=== PATIENT | female | born 1950 | race Hispanic/Latino ===

== ENCOUNTER 2020-04-22 14:26 | Observation (INO) | payer OTHER ==
[2020-04-22] MEDS ORDERED: HYDROCODONE/CHLORPHEN 5 ML/OSYR ONE (15:36)
[2020-04-22 16:12] LABS: Urine Blood TRACE (NEG); Urine Glucose NEGATIVE (NEG); Urine Protein 2+ (NEG); Urine Specific Gravity 1.025 (1.005-1.030); Urine pH 6.5 (5.0-7.0)
--- NOTE | 2020-04-22 16:18 | RAD REPORT ---
EXAM DESCRIPTION: RAD - Chest Single View - 04/22/2020 4:07 pm CLINICAL HISTORY: COUGH Chest pain. COMPARISON: Chest Single View dated 04/20/2020; FLUORO-GUIDE FOR BRONCH UPT1HR dated 04/20/2020Chest P a And Lat (2 Views) dated 12/13/2018; Chest Pa And Lat (2 Views) dated 02/14/2016; CHEST SINGLE VIEW da marshal 04/30/2008 FINDINGS: Portable technique limits examination quality. Small focal lung opacity is present in the right upper lobe laterally suggesting developing pneumonia . This appears superimposed on mild interstitial pulmonary opacities. The heart is normal in size. No displaced fractures. IMPRESSION: Interstitial pneumonitis with suspected developing right upper lobe pneumonia.
[2020-04-22] MEDS ORDERED: CEFTRIAXONE/SWI 1gm 1 GM/10 ML SYR ONE (16:40)
[2020-04-22] MEDS ORDERED: dexAMETHasone 10 MG/ML VIAL ONE (16:40)
[2020-04-22] MEDS ORDERED: NA CHLORIDE 0.9% 1,000 ML ONE (16:40)
[2020-04-22 16:57] LABS: Urine Bacteria 20-50 /HPF (<20); Urine Culture Reflex Order REFLEXED; Urine Mucus 1+ /HPF (NONE SEEN); Urine RBC NONE SEEN /HPF (NONE SEEN)
[2020-04-22] MEDS ORDERED: AZITHROMYCIN IV 500 MG in NA CHLORIDE 0.9% 250 ML IVPB ONE (17:00)
[2020-04-22 17:10] LABS: Absolute Lymphocytes (CBC) 1.1 K/uL (0.7-4.9); Basophils % 0.2 % (0-1.3); Hematocrit 41.1 % (36.0-45.0); Lymphocytes % 16.3 % (15.3-44.8); MPV 9.7 fL (7.6-11.3); RBC Red Blood Cell Count 4.61 M/uL (3.86-4.86)
[2020-04-22 17:20] LABS: Protime INR 1.02
[2020-04-22 17:40] LABS: ALT/SGPT 45 U/L (12-78); AST/SGOT 60 U/L (15-37); Albumin 2.7 g/dL (3.4-5.0); Alkaline Phosphatase 97 U/L (45-117); BUN Blood Urea Nitrogen 8 mg/dL (7-18); Bicarbonate 24 mmol/L (21-32); Bilirubin Direct 0.1 mg/dL (0-0.2); Bilirubin Total 0.3 mg/dL (0.2-1.0); Ferritin 537.5 ng/mL (8-388); Glucose Level 137 mg/dL (74-106); Lipase 80 U/L (73-393); Potassium 3.7 mmol/L (3.5-5.1); Sodium Level 136 mmol/L (136-145); Troponin (Emerg Dept Use Only) < 0.02 ng/mL (0.0-0.045)
--- NOTE | 2020-04-22 18:53 | P.HP ---
Certification for Inpatient Patient admitted to: Observation With expected LOS: <2 Midnights Patient will require the following post-hospital care: None Practitioner: I am a practitioner with admitting privileges, knowledge of patient current condition, hospital course, and medical plan of care. Services: Services provided to patient in accordance with Admission requirements found in Title 42 Section 412.3 of the Code of Federal Regulations Patient History Date of Service: 04/22/20 Primary Care Provider: Keisha Moreno Reason for admission: covid 19 History of Present Illness: Patient is an office patient of ours. She tested positive for covid this past week. She was having a cough. States she has a lot of sputum in the home. She had some nausea and vomiting for the past 2 days. She came to the ER. Was found to have a pulse ox of 89% and rr of 28. She recieved decadrone. She is resting comfortably. The patient has a normal pulse ox of 97%. Nursing states she desaturates when she gets up she goes down to 87%. Have discussed the patient with Dr. Anaya Home medications list reviewed: Yes Review of Systems General: Fever Respiratory: Cough, Shortness of Breath, Sputum Physical Examination - Physical Exam General: Alert, In no apparent distress HEENT: Atraumatic, PERRLA, Mucous membr. moist/pink, EOMI, Sclerae nonicteric Neck: Supple, 2+ carotid pulse no bruit, No LAD, Without JVD or thyroid abnormality Respiratory: Clear to auscultation bilaterally, Normal air movement Cardiovascular: Regular rate/rhythm, Normal S1 S2 Gastrointestinal: Normal bowel sounds, No tenderness Musculoskeletal: No tenderness Integumentary: No rashes Neurological: Normal gait, Normal speech, Normal strength at 5/5 x4 extr, Normal tone, Normal affect Lymphatics: No axilla or inguinal lymphadenopathy - Studies Laboratory Data (last 24 hrs) 04/22/20 16:45: PT 12.0, INR 1.02, APTT 31.3 04/22/20 16:45: WBC 6.6, Hgb 13.6, Hct 41.1, Plt Count 165 04/22/20 16:45: Sodium 136, Potassium 3.7, BUN 8, Creatinine 0.59, Glucose 137 H, Total Bilirubin 0.3, AST 60 H, ALT 45, Alkaline Phosphatase 97, Lipase 80 Assessment and Plan - Problems (Diagnosis) (1) COVID-19 Current Visit: Yes Status: Acute Plan: Will keep her in observation. Except for her respiratory rate the patient is doing well. We can discharge her on zithromax and prednisone per Dr. Anaya. (2) Diabetes Current Visit: Yes Status: Acute Plan: She is on metformin 500mg po bid at home. Will put her on a sliding scale. She will have a bit of elevation when she is on prednisone. However this is unavoidable. Will put her on a sliding scale for now. Qualifiers: Diabetes mellitus type: type 2 Diabetes mellitus lobsterman insulin use: without lobsterman use Diabetes mellitus complication status: without complication Qualified Code(s): E11.9 - Type 2 diabetes mellitus without complications (3) Urine abnormality Current Visit: Yes Status: Acute Plan: she had some bacturia. Recieved a dosage of ceftriaxone. Which should cover any uti. - Advance Directives Does patient have a Living Will: No Does patient have a Durable POA for Healthcare: No - Code Status/Comfort Care Code Status Assessed: No Code Status: Full Code Physician Review: Patient Assessed, Agree with Above Assessment and Plan Critical Care: No Time Spent Managing Pts Care (In Minutes): 75
[2020-04-22] MEDS ORDERED: GLUCAGON 1 MG/VIAL IM PRN (19:06)
[2020-04-22] MEDS ORDERED: D50W 25 GM/50 ML SYRINGE/VIAL IV PRN (19:06)
[2020-04-22] MEDS ORDERED: ONDANSETRON 4 MG/2 ML VIAL IV PRN (19:06)
--- OUTSIDE RECORDS SUMMARY | 2020-04-22 19:15 | XMS REPORT ---
:1950 Author Organization [employer] Care Team Providers Name Role Phone Kailey Garcias Provider Role Unavailable Allergies No Known Allergies Problems Problem Type Condition Code Onset Dates Condition Statu s Problem Ulcer L98.499 Active Problem Hyperlipidemia, unspecified E78.5 Active hyperlipidemia type Problem Prediabetes R73.03 Active Problem Elevated TSH R79.89 Active Problem Osteoporosis without current M81.0 Active pathological fracture, unspecified osteoporosis type Problem Hyperlipidemia E78.5 Active Problem Diabetes E11.9 Active Problem Uncontrolled type 2 diabetes E11.65 Active mellitus with hyperglycemia Problem Cancer C80.1 Active Problem History of breast cancer Z85.3 Act mae Problem Osteoporosis M81.0 Active Problem Obesity (BMI 30-39.9) E66.9 Active Medications No Known Medications Results No Known Results Summary Purpose [employer] Submission
--- OUTSIDE RECORDS SUMMARY | 2020-04-22 19:15 | XMS REPORT | Continuity of Care Document ---
:1950 Author Organization [facility] t Address [address] [place] [address] Care Team Providers Name Role Phone Giorgio NEVAREZ Primary Care Physician Vera NEVAREZ Attending Clinician Lai INSTRUMENT LENS INSPECTOR Attending Clinician Jorge YUP, R Attending Clinician Jaret NEVAREZ K Attending Clinician Michael PAVON, L Attending Clinician Zackery IVEY Attending Clinician Unavailable Silvano PAVON Attending Clinician Thomas INSTRUMENT LENS INSPECTOR Attending Clinician Unavailable Bhavani NEVAREZ Attending Clinician Eleanor NEVAREZ Attending Clinician Montrell DOUGHERTY C Attending Clinician Inocencio RN, I Attending Clinician Payers Payer Name Policy Type Policy Number Effective Date Expiration Date Sepideh GONZALEZ MEDICARECIGNA xxxxxxxx 2019 MD Mayra ibanez [facility] 00:00:00 MEDICARE ADVANTAGExxxxxxxx2019-PresentMedic are Problems Condition Condition Condition Status Onset Resolution Last Treating Co mments Source Name Details Category Date Date Treatment Clinician Date joint terminal attack controller long-term Disease Active current current 9 Anderso use of use of 00:00: n aromatase aromatase 00 inhibitor inhibitor Encounter Encounter Disease Active for for 8- Anderso observatio observatio 00:00: n n for n for 00 other other suspected suspected condition condition ruled out ruled out Personal Personal Disease Active history of history of 8-17 An derso peptic peptic 00:00: n ulcer ulcer 00 disease disease Broken Broken Disease Active tooth tooth 8-17 Anderso without without 00:00: n complicati complicati 00 on on Osteoporos Osteoporos Disease Active M D is is 7- Anderso 00:00: n 00 Menopausal Menopausal Disease Active M D flushing flushing 7-07 Parmjit o 00:00: n 00 Vitamin D Vitamin D Disease Active deficiency deficiency 7- An derso 00:00: n 00 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 Osteoporos Osteoporos Problem Active [facility] Prediabete Prediabete Problem Active [facility]cer [facility] Diabetes Diabetes [facility] Hyperlipid Hyperlipid Problem Active [facility] History of History of Problem Active [facility] breast breast [facility] Obesity Obesity Problem Active [facility] (BMI (BMI [facility] - 30-39.9) 30-39.9) [facility] Cancer Cancer Problem [facility] 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 Family History Family Member Diagnosis Comments Start Date Stop Date Source Maternal grandmother -Gastrointestinal MD Leach (Esophagus, Liver, Bile Duct, Stomach, Pancreas, Colon, Rectum, Anus Natural sister -Gastrointestinal MD Leach (Esophagus, Liver, Bile Duct, Stomach, Pancreas, Colon, Rectum, Anus Family member Other MD Leach Social History Social Habit Start Date Stop Date Quantity Comments Source Sex Assigned At MD Parnell on Alcohol intake 2019-06-06 2019-06-06 Current MD Iqra thornton 00:00:00 00:00:00 non-drinker of alcohol (finding) Smoking Status Start Date Stop Date Source Never smoker MD Leach Medications Ordered Filled Start Stop Current Ordering Indication Dosage Frequency Signature Comments Components Source Medication Medication Date Date Medication? Clinician (SIG) Name Name Saccharomyc 2020-0 2020- No 250mg Take 250 MD es 4-21 04-21 mg by Anderso jessica 15:13: 00:00 mouth n (FLORASTOR) 51 :00 daily. 250 mg capsule pravastatin 2020-0 Yes 40mg Take 40 mg MD (PRAVACHOL) 4-21 by mouth Luther rso 40 mg 15:13: daily. n tablet 47 denosumab 2020-0 Yes 60mg Inject 60 MD (PROLIA) 60 4-21 mg under Luther rso mg/mL syrg 15:13: the skin n injection 47 every 6 (six) months. ranitidine 2020-0 2020- No 150mg Take 150 M D (ZANTAC) 4- 04-21 mg by Anderso 150 MG 15:13: 00:00 mouth n capsule 42 :00 every evening. docusate 2020-0 2020- No 100mg Take 100 MD sodium 4-21 04-21 mg by Anderso (COLACE) 15:13: 00:00 mouth n 100 mg 30 :00 twice capsule daily. cyanocobala 2020-0 2020- No 1000ug Inject M D min 4-21 04-21 1,000 mcg Anderso (VITAMIN 15:13: 00:00 into the n B-12) 1,000 23 :00 shoulder, mcg/mL thigh, or injection buttocks every 6 (six) months. calcium 2020-0 2020- No 600mg Take 600 MD citrate/vit 4-21 04-21 mg by Parmjit o thao D3 15:13: 00:00 mouth n (CITRACAL + 06 :00 twice D ORAL) daily. With D3 500 IU. FREESTYLE Yes USE 1 TO MD 28 gauge 4-05 CHECK Anderso lancets 00:00: GLUCOSE n 00 ONCE DAILY Blood Blood 2019- Yes Kailey as [facility] Glucose Glucose 4-03 Millender directed [facility] Monitor Monitor 00:00: (DISPENSE Me moria 00 BLOOD l GLUCOSE Outpati MONITOR ent FORMULARY Clinics TO INSURANCE) Glucose Glucose Yes Kailey as [facility] testing testing 4-03 Millender directed [facility] - strips strips 00:00: (dispense Tamir malinda 00 testing l strips Outpati formulary ent to Clinics insurance) Metformin Metformin Yes Kailey [address] [facility] HCl HCl 4-03 Millender with a [facility] - 00:00: meal [facility] 00 l Outpati ent Clinics Lancets Lancets Yes Kailey as [facility] 4-03 Millender directed [facility] - 00:00: (dispense [facility] 00 lancets l formulary Outpati to ent insurance) Clinics metFORMIN Yes TAKE 1 MD (GLUCOPHAGE 4-03 TABLET BY And erso ) 500 mg 00:00: MOUTH n tablet 00 TWICE DAILY WITH A MEAL FOR DIABETES FOR 30 DAYS FREESTYLE Yes USE MD LITE METER 4-03 DIRECTED Abdullahi so kit 00:00: n 00 omeprazole 2020- No 1{capsu Take 1 M D (PriLOSEC) 05-30 04-21 le} capsule by An derso 20 mg 00:00: 00:00 mouth n capsule 00 :00 daily. anastrozole 2018- No Personal TAKE 1 MD (ARIMIDEX) 04-22 08-16 history of TABLET BY Anderso 1 mg tablet 00:00: 00:00 malignant MOUTH ONCE n 00 :00 neoplasm of DAILY breast anastrozole 2018- No Personal TAKE 1 MD (ARIMIDEX) 04-15 07-02 history of TABLET BY Anderso 1 mg tablet 00:00: 00:00 malignant MOUTH ONCE n 00 :00 neoplasm of DAILY breast anastrozole Yes Personal 1mg Take 1 MD (ARIMIDEX) 3-12 history of tablet (1 Anderso 1 mg tablet 00:00: malignant mg) by n 00 neoplasm of mouth breast daily. ergocalcife 2017- 2019- No Vitamin D 14799W Take 1 MD olvera 07-18 deficiency, capsule Luther rso (DRISDOL) 00:00: 00:00 not (50,000 n 50,000 00 :00 otherwise Units) by units specified mouth capsule every 14 (fourteen) days. Ranitidine Ranitidine Yes Kailey [address] [facility] HCl HCl Millender [facility] Stool Stool Yes Kailey [address] [facility] Softener Softener Millender as needed [facility]ics Pravastatin Pravastatin Yes Kailey [address] [facility] Sodium Sodium Millender [facility] Prolia Prolia Yes Kailey as [facility] Citracal Citracal Yes Kailey as [facility] Plus Plus Millender directed [facility] Anastrozole Anastrozole Kailey [address] [facility] 05-01 Millender [facility]00 [facility]00 l [facility] ent Clinics Vital Signs Vital Name Observation Time Observation Value Comments Source Systolic blood pressure 2020-02-10 15:11:00 126 mm[Hg] MD Leach Diastolic blood pressure 2020-02-10 15:11:00 70 mm[Hg] MD Leach Heart rate 2020-02-10 15:11:00 70 /min MD Adbullahi bailey Body temperature 2020-02-10 15:11:00 37 Marly MD Igor parker Respiratory rate 2020-02-10 15:11:00 18 /min MD Igor parker Body weight 2020-02-10 15:11:00 74.6 kg MD Abdullahi bailey BMI 2020-02-10 15:11:00 31.49 kg/m2 MD Abdullahi bailey Body height 2019-07-22 16:13:00 153.9 cm MD Abdullahi bailey Oxygen saturation in 2019-07-01 13:46:28 97 /min MD Leach Arterial blood by Pulse oximetry Procedures Procedure Date / Time Performed Performing Clinician [facility] e CALCIUM LEVEL TOTAL 2020-02-10 14:29:50 Priscilla Patel MD PHOSPHORUS LEVEL 2020-02-10 14:29:50 Priscilla Patel MD MAMMO DIGITAL DIAGNOSTIC 2019-12-16 17:35:30 Lashonda Rodriguez MD BILATERAL W [place] DEXA BONE MINERAL DENSITY BOTH 2019-07-22 16:30:51 Elliot Gamez MD HIPS AND SPINE BLOOD UREA NITROGEN 2019-07-22 15:03:00 Kyle Gamez MD rson SERUM CREATININE 2019-07-22 15:03:00 Kyle Gamez MD CALCIUM LEVEL TOTAL 2019-07-22 15:03:00 Kyle Gamez MD rson ALBUMIN LEVEL 2019-07-22 15:03:00 Kyle Gamez MD MAGNESIUM LEVEL 2019-07-22 15:03:00 Kyle Gamez MD PHOSPHORUS LEVEL 2019-07-22 15:03:00 Kyle Gamez MD VITAMIN D 25 HYDROXY LEVEL 2019-07-22 15:03:00 Kyle Gamez MD CTX BETA CROSSLAPS 2019-07-22 15:03:00 Kyle Gamezer son PTH INTACT 2019-07-22 15:03:00 Kyle Gamez MD ALKALINE PHOSPHATASE BONE 2019-07-22 15:03:00 Kyle Gamez THYROID STIMULATING HORMONE 2019-07-22 15:03:00 Kyle Gamez MD FREE THYROXINE 2019-07-22 15:03:00 Kyle Gamez MD .GLOMERULAR FILTRATION RATE 2019-07-22 15:03:00 Kyle Gamez MD SERUM CREATININE 2019-07-22 15:03:00 Kyle Gamez MD .DR. GIORDANO PROT ELEC PATH 2019-07-22 15:03:00 Gino Gamez MD REVIEW .DR. GIORDANO RUBIO PATH REVIEW 2019-07-22 15:03:00 Palmer Gamez MD PATHOLOGY BIOPSY SPECIMEN 2019-07-04 00:00:00 Graciela Schaefer MD INTERPRETATION XR SPINE LUMBAR 2 OR 3 VW 2019-07-01 15:07:47 Lashonda Rodriguez MD CYTOPATHOLOGY EMBEDDED ENGINEER 2019-06-06 00:00:00 Rabel, Kailey MD Anderso n INTERPRETATION Encounters Start End Encounter Admission Attending Care Care Encounter Source Date/Time Date/Time Type Type Clinicians Facility Department ID 2020-01-27 2020-01-27 [facility] [id number] [facility] 08:25:00 08:25:00 [facility] 2020-01-24 2020-01-24 [facility] [id number] [facility] 22:02:00 22:02:00 [facility] ent Clinics 2020-01-23 2020-01-23 [facility] [id number] [facility] 11:49:00 11:49:00 [facility] 2020-01-23 2020-01-23 [facility] [id number] [address] 08:45:00 08:45:00 [facility] 2020-01-21 2020-01-21 [facility] [id number] [facility] 14:00:00 14:00:00 [facility] Results Test Description Test Time Test Comments Results Result [facility] e Comments Mammography 2019-11-23 There is no [place] [address] mammographic evidence Diagnostic 17:45:55 of malignancy. Routine Bilateral with follow-up mammogram in Mukesh 1 year is recommended. BI-RADS Category 2:Benign Finding(s) Interface, Radiology Results In - 12/16/2019 11:45 AM CSTCLINICAL INDICATION:Patient is a 69 year old female and is seen for diagnostic mammogram,asymptomatic MAMMO DIGITAL DIAGNOSTIC BILATERAL W TOMODigital Mammogram evaluated with Computer Aided Detection (CAD). COMPARISON:The present examination has been compared to prior imaging studies performed atan outside location on 02/07/2017, [facility]2018. FINDINGS:There are scattered areas of fibroglandular density. 1: There is a post surgical scar with associated post radiation change andsurgical clips in the middle region of the left breast upper hemisphere at 12o'clock located 5 centimeters from the nipple. No dominant mass, distortion, orsuspicious calcifications are identified. 2: There is a stable intramammary lymph node measuring 0.8 centimeters in theposterior upper outer region of the right breast. 3: There are benign appearing calcifications in both breasts. Finding remainsunchanged from the prior study. Tomosynthesis performed in CC and MLO projections. IMPRESSION:There is no mammographic evidence of malignancy. Routine follow-up mammogram in 1 year is recommended. BI-RADS Category 2:Benign Finding(s) RUBIO Path Review RUBIO Path IntThe serum [place] 2 protein immunofixation 22:55:07 electrophoretic patternsobtained with the use of antisera against IgG, IgA, IgM,bound kappa and bound lambda light chain proteins do not show definite evidence of a monoclonal gammopathy. Comment: MD Gentry ALMONTE [id number] by: MD Gentry ALMONTE [id number] Date/Time: 07.23.2019 17:55 PM CDT Transcribed Date/Time: 07.23.2019 17:55 PM CDTElectronically Signed By: MD Gentry ALMONTE [id number] on 07.23.2019 17:55 PM [facility] RUBIO 2019-07-23 22:55:06 Test Item Value Reference Range Interpretation Comme nts RUBIO (test code = 5948) No M-protein SHERRI (test code = SHERRI) Please schedule on a Sascha LeachProtein Electrophoresis Path [id number] 22:55:05SPE Path InterpThe serum protein electrophoretic pattern does not show definite evidence of anM-protein peak. If a paraproteinemia is suspected clinically, however, serum free light chain studies, serum protein RUBIO studies, serum immunoglobulin quantitation and urine Bence-Francis protein studies are recommended. Comment: MD Gentry [id number] by: MD Gentry ALMONTE [id number] Date/Time: 07.23.2019 17:55 PM CDT Transcribed Date/Time: 07.23.2019 17:55 PM CDTElectronically Signed By: MD Gentry ALMONTE [id number] on 07.23.2019 17:55 PM [facility] Protein Electrophoresis 2019-07-23 22:55:04 Test Item Value Reference Range Interpretation Comments TOT PROTEIN (test code 6.8 6.0- 8.2 gm/dL = 8545) Albumin (test code = 3.9 3.3- 5.4 gm/dL 4760) Alpha 1 Globulin (test 0.2 0.1- 0.2 gm/dL code = 4774) Alpha 2 Globulin (test 0.7 0.6- 0.9 gm/dL code = 4777) Beta Globulin (test 0.9 0.6- 1.1 gm/dL code = 5078) Gamma Globulin (test 1.1 0.7- 1.5 gm/dL code = 5658) SHERRI (test code = SHERRI) Please schedule on a JOANIE LeachAlk Phos [id number] 20:06:02 Test Item Value Reference Range Interpretation Comments AlkPhos 11 mcg/L -----R Bone-Mar (test EFERENCE code = 4771) VALUE ------ <=14 (Premenopausal) <=22 (Postmenopausal ) Test Performed by:[facility] [address], [place], [place] [address]Gog Dir betsey: Tom abdullahi M.D. Ph.D.; CLI A# [id number] SHERRI (test code = Please schedule SHERRI) on a clement LeachCTX Beta [id number] 23:45:04 Test Item Value Reference Range Interpretation Comments CTX (test code 313 pg/mL = 5250) Males:1-17 years: 276 - 2400 pg/mL18-30 years: 87 - 1200 pg/mL31-50 years: 93 - 630 pg/mL>50 years: 4 0 - 840 pg/mL Females:1-17 years: 160 - 2000 pg/mLPremenopau sa l: 25 - 573 pg/mLPostmenopa us al: 104 - 1008 pg/mL SHERRI (test code Please schedule = SHERRI) fastingPlease schedule on a Tues AM MD LeachVitamin D [id number] 21:38:21 Test Item Value Reference Range Interpretation Comments Vitamin D 25 OH (test 22 ng/mL 30-100 L Refere nce Range: code = 8018) Deficiency: <10 ng/mLInsufficie n cy: 10-29 ng/mLSufficienc y : 30-100 ng/mLPotential toxicity: >10 0 ng/mL SHERRI (test code = SHERRI) Please schedule on a Tues AM Lab Interpretation Abnormal (test code = 76599-3) MD LeachNM Bone Mineral Density Both Hips and [id number] 16:41:39. 1. Findings in range of low bone mass based on measurements in lumbar spine and bilateral femoral necks2. Although there are statistically significant increase in bone mineral density of lumbar spine, this may represent scan to scan variation, and the other regions are not significantly changed compared to prior study. I personally reviewed these image(s) along with the resident's/fellow's interpretations, certify that if a procedure was performed I was physically present, and agree with the finalreport.Interface, Radiology Results In - 07/22/2019 11:43 AM CDTFULL RESULT: Examination: Bone Mineral Density (DXA), 07/22/2019Clinical History: 68-year-old female with breast cancer and reported osteoporosis. She is postmenopausal.Indication: Assessment of bone mineral density.Comparison: July 18, 2018 bone mineral densitometry scanTechnique: Bone mineral density was obtained using Hologic dual-energy X-ray absorptiometry.Findings: The findings are provided in the below table(s).Bone Density:-- Region Exam Date BMD T- Z- g/cm2 Score Score AP Spine (L1-L4) 07/22/2019 0.828 -2.0 -0.1 Femoral Neck (Left) 07/22/2019 0.737 -1.2 0.4 TotalHip (Left) 07/22/2019 0.874 -0.7 0.6 Femoral Neck (Right) 07/22/2019 0.734 -1.2 0.4 Total Hip (Right) 07/22/2019 0.912 -0.4 0.9 For postmenopausal women and men age 50 and over, the World Health Organization criteria for BMD interpretation classify patients as: Normal (T-score at or above -1.0), Osteopenia (T-score between -1.0 and -2.5), or Osteoporosis (T- score at or below -2.5). Previous Exams: Region Exam Age BMD T-score BMD Change vs Date g/cm2 Baseline Previous --------AP Spine(L1-L4) 07/22/2019 68 0.828 -2.0 6.7%* 7.3%* 07/18/2018 67 0.772 -2.5 -0.5% -0.5% 05/03/2017 66 0.776 -2.5 Total Hip(Left) 07/22/2019 68 0.874 -0.7 1.0% 2.4%07/18/2018 67 0.853 -0.8 -1.3% -1.3% 05/03/2017 66 0.865 -0.7 Femoral Neck(Left) 07/22/2019 68 0.737 -1.2 -5.9%* 1.6% 07/18/2018 67 0.726 -1.3 -7.3%* -7.3%* 05/03/2017 66 0.783-0.8 Total Hip(Right) 07/22/2019 68 0.912 -0.4 5.9%* 2.4% 07/18/2018 67 0.890 -0.5 3.4% 3.4% 05/03/2017 640.861 -0.8 Femoral Neck(Right) 07/22/2019 68 0.734 -1.2 0.8% 4.7% 07/18/2018 67 0.701 -1.5 -3.7% -3.7% 05/03/2017 66 0.727 -1.2 *Denotes significance at 95% confidence level, site specific LSC for AP Spine = 0.029 g/cm2, site specific LSC for Total Hip = 0.033 g/cm2, site specific LSC for Femoral Neck = 0.045 g/cm2, LSC for 1/3 Forearm = 0.023 g/cm2 IMPRESSION:.1. Findings in range of low bone mass based onmeasurements in lumbar spine and bilateral femoral necks2. Although there are statistically significant increase in bone mineral density of lumbar spine, this may represent scan to scan variation, and the other regions are not significantly changed compared to prior study.I personally reviewed these image(s) along with the resident's/fellow's interpretations, certify that if a procedure was performedI was physically present, and agree with the final report.MD LeachPTH [id number] 16:14:50 Test Item Value Reference Range Interpretation Comments PTH Intact (test 64.1 pg/mL 15-65 Testing Per formed at code = 6769) [facility] Ambulat [facility], [address], [place] [address] SHERRI (test code = Please schedule on SHERRI) igor LeachFree [id number] 16:11:03 Test Item Value Reference Range Interpretation Comments T4 Free (test 0.98 ng/dL 0.93-1.7 Testing Perfor med at code = 7502) [facility] Ambulat [facility], [address], [place] [address] SHERRI (test code Please schedule on = SHERRI) igor [id number] 16:11:02 Test Item Value Reference Range Interpretation Comments TSH (test code 2.12 0.27- 4.20 Note: New = 7578) mcunit/mL Methodology and Reference Range change effectiv e 02/07/2018 at 14 00 Testing Perform ed at [facility], [address], [place] [address] SHERRI (test code Please schedule on = SHERRI) igor LeachGlomerular Filtration [id number] 16:07:17 Test Item Value Reference Range Interpretation Comments eGFR-AA (test 107 >=60 mL/min/1.73 Normal eGF R >= 60 code = 8062) sq. m mL/min/1.73 m2 Note: The eGFR is alexy culated using the CKD-E PI equation. The e GFR declines with a ge. eGFR <60 mL/min /1.73 m2 is considere d as "decreased". Th is equation should only be used for pat ients 18 and older. According to e National Kidney Foundation's Ki dney Disease Outcome Quality Initiat mae (KDOQI) classif ication and 2012 Kidney Disease Improvi ng Global Outcomes (KDIGO) Clinica l Practice Guidel ine, the stage of CK D should be categ orized based on estima marshal GFR. Stage Desc ription GFR mL/mi n/1.73 m21 Normal or h igh GFR >=902 Mildly decreased GFR 60-893a M ildly to moderately decreased GFR 45-593b Moderat alisson to severely decrea sed GFR 30-444 Rosa rely decreased GFR 15-295 Kidney f ailure <15 Testi ng Performed at [facility] Lab Medical Malpractice Paralegal [facility], [address], [place] [address] eGFR-MIRI 93 >=60 mL/min/1.73 Normal eGFR >= 60 (test code = sq. m mL/min/1.73 m2 Note: 8063) The eGFR is alexy culated using the CKD-E PI equation. The e GFR declines with a ge. eGFR <60 mL/min /1.73 m2 is considere d as "decreased". Th is equation should only be used for pat ients 18 and older. According to th e National Kidney Foundation's dney Disease Outcome Quality Initiat mae (KDOQI) classif ication and 2012 Kidney Disease Improvi ng Global Outcomes (KDIGO) Clinica l Practice Guidel ine, the stage of CK D should be categ orized based on estima marshal GFR. Stage Desc ription GFR mL/mi n/1.73 m21 Normal or h igh GFR >=902 Mildly decreased GFR 60-893a M ildly to moderately decreased GFR 45-593b Moderat alisson to severely decrea sed GFR 30-444 Rosa rely decreased GFR 15-295 Kidney f ailure <15 Testin g Performed at [facility] Lab Medical Malpractice Paralegal [facility], [address], [place] [address] SHERRI (test Please schedule code = SHERRI) on a Tues AM [facility] [id number] 16:07:15 Test Item Value Reference Range Interpretation Comments Magnesium (test 2.4 mg/dL 1.6-2.6 Testing Perf ormed code = 6359) at [facility] Lab Medical Malpractice Paralegal [facility], [address], [place], [place] [address] SHERRI (test code = Please schedule SHERRI) on a AM MD LeachAlbumin [id number] 16:07:13 Test Item Value Reference Range Interpretation Comments Albumin Lvl (test 4.1 3.5- 5.2 gm/dL Testing Performed code = 4763) at [facility] Lab Medical Malpractice Paralegal [facility], [address], [place], [place] [address] SHERRI (test code = Please schedule on SHERRI) a AM MD Leach.Serum [id number] 16:07:12 Test Item Value Reference Range Interpretation Comments Creatinine (test 0.65 mg/dL 0.51-0.95 Testing Per formed code = 5399) at [facility] Lab Medical Malpractice Paralegal [facility], [address], [place] [address] SHERRI (test code = Please schedule SHERRI) on a MD [id number] 16:07:11 Test Item Value Reference Range Interpretation Comments BUN (test code 10 mg/dL 6-23 Testing Perfo rmed at = 5055) [facility] Lab Ambulat ory Care [facility], [address], [facility] [place] [address] SHERRI (test code Please schedule on = SHERRI) a clement LeachX-ray Spine Lumbar 2 or 3 [id number] 15:25:24Mild bone demineralization without fracture or metastasis.Interface, Radiology Results In - 07/01/2019 10:27 AM CDTFULL RESULT:Examination: XR SPINE LUMBAR 2 OR 3 VW, 07/01/2019 10:07 AM.Clinical History: 68-year-old woman with breast cancer.. joint terminal attack controller use of aromatase inhibitorIndication: History ofbreast cancer with persistent back pain.Comparison: NoneTechnique: XR SPINE LUMBAR 2 OR 3 VWFindings: 1. The bone mineral content is visually mildly diminished for age and gender.2. No fractures.3. No metastatic disease detected. IMPRESSION:Mild bone demineralization without fracture or metastasis.MD Leach
--- OUTSIDE RECORDS SUMMARY | 2020-04-22 19:15 | XMS REPORT ---
:1950 Author Organization eClinicalWorks Care Team Providers Name Role Phone Kailey Garcias Provider Role Unavailable Allergies No Known Allergies Problems Problem Type Condition Code Onset Dates Condition Statu s Problem Ulcer L98.499 Active Problem Hyperlipidemia, unspecified E78.5 Active hyperlipidemia type Problem Prediabetes R73.03 Active Assessment Elevated TSH R79.89 Active Problem Elevated TSH R79.89 Active Problem [...]
--- OUTSIDE RECORDS SUMMARY | 2020-04-22 19:15 | XMS REPORT ---
:1950 Author Organization e[employer] Care Team Providers Name Role Phone Kailey Garcias Provider Role Unavailable Allergies No Known Allergies Problems Problem Type Condition Code Onset Dates Condition Statu s Problem Ulcer L98.499 Active Problem Hyperlipidemia, unspecified E78.5 Active hyperlipidemia type Problem Prediabetes R73.03 Active Assessment Uncontrolled type 2 diabetes E11.65 Active mellitus with hyperglycemia Problem Osteoporosis without current M81.0 Active pathological fracture, unspecified osteoporosis type Problem Hyperlipidemia E78.5 Active Problem Diabetes E11.9 Active Problem Uncontrolled type 2 diabetes E11.65 Active mellitus with hyperglycemia Problem Cancer C80.1 Active Problem History of breast cancer Z85.3 Act mae Problem Osteoporosis M81.0 Active Problem Obesity (BMI 30-39.9) E66.9 Active Medications Medication Code Code Instructions Start End Status Dosage System Date Date Ranitidine HCl ND 68118088741 150 MG Orally Active 1 tablet Once a day Stool Softener ND 69552470773 100 MG Orally Active 1 capsule as Once a day needed Blood Glucose ND 0 as directed January Active as di rected Monitor Test BS once 2019 (DISPENSE daily BLOOD GLUCOSE MONITOR FORMULARY TO INSURANCE) Glucose testing [facility] [address] n/s January Active as d irected strips subcutaneous 2019 (dispense Test BS once testing daily strips formulary to insurance) Citracal Plus ND 87014763646 - Orally Active as di rected Pravastatin ND 73702976541 40 MG Orally Active 1 t ablet Sodium Once a day Metformin HCl ND 68262295572 500 MG Orally January Active 1 tablet Twice a day for 2019 with a meal diabetes Prolia ND 89415387980 60 MG/ML Active as directed Subcutaneous Once every 6 months Lancets ND 35234877286 - as directed January Active as dir ected Test BS once 2019 (dispense daily lancets formulary to insurance) Anastrozole ND 06918829159 1 MG Orally February 19, Active 1 ta blet Once a day 2019 Results No Known Results Summary Purpose eClinicalWorks Submission
--- NOTE | 2020-04-22 19:35 | ER ---
Nurse's Notes [facility] Name: Valeria Witt Age: 69 yrs Sex: Female : 1950 Arrival Date: 04/22/2020 Time: 14:32 Bed 15 Private MD: Diagnosis: Pneumonia in diseases classified elsewhere-Covid 19 + Presentation: 04/22 15:08 Chief complaint: Patient states: Tested at [facility] on 04-14-2020 and on [facility] 04-18-2020 they told me I'm positive. I feel worse today lots of coughing and dizzy from coughing. Coronavirus screen: Surgical mask placed on patient. Patient moved to private room, placed in contact and droplet isolation with eye protection until further assessment. Prior COVID test collected on: 04-14-2020. Ebola Screen: No symptoms or risks identified at this time. Initial Sepsis Screen: Does the patient meet any 2 criteria? RR > 20 per min. No. Patient's initial sepsis screen is negative. Does the patient have a suspected source of infection? No. Patient's initial sepsis screen is negative. Risk Assessment: Do you want to hurt yourself or someone else? Patient reports no desire to harm self or others. Onset of symptoms was April 14, 2020. Care prior to arrival: None. 15:08 Method Of Arrival: Ambulatory [facility] 15:08 Acuity: YAMILET 3 jl7 Triage Assessment: 20:56 General: Appears in no apparent distress. Behavior is calm, cooperative, appropriate eb1 for age. Pain: Complains of pain in anterior aspect of left lateral abdomen Aggravated by coughing. EENT: No deficits noted. No signs and/or symptoms were reported regarding the EENT system. Neuro: No deficits noted. Cardiovascular: No deficits noted. Respiratory: Reports shortness of breath on exertion cough that is non-productive. GI: No deficits noted. No signs and/or symptoms were reported involving the gastrointestinal system. : No deficits noted. No signs and/or symptoms were reported regarding the genitourinary system. Derm: No deficits noted. No signs and/or symptoms reported regarding the dermatologic system. Musculoskeletal: No deficits noted. No signs and/or symptoms reported regarding the musculoskeletal system. Historical: - Allergies: 15:15 No Known Allergies; jl7 - PMHx: 15:15 Diabetes - IDDM; Hyperlipidemia; jl7 - Social history:: Smoking status: Patient denies any tobacco usage or history of. Screenin:20 Abuse screen: Denies threats or abuse. Nutritional screening: No deficits noted. em Tuberculosis screening: No symptoms or risk factors identified. Fall Risk None identified. Assessment: 20:00 General: Appears in no apparent distress. comfortable, Behavior is calm, cooperative, eb1 appropriate for age. Pain: Complains of pain in anterior aspect of right lateral abdomen. Neuro: No deficits noted. Cardiovascular: No deficits noted. Respiratory: Reports shortness of breath on exertion cough that is non-productive. GI: No deficits noted. No signs and/or symptoms were reported involving the gastrointestinal system. : No deficits noted. No signs and/or symptoms were reported regarding the genitourinary system. EENT: No deficits noted. No signs and/or symptoms were reported regarding the EENT system. Derm: No deficits noted. No signs and/or symptoms reported regarding the dermatologic system. Musculoskeletal: No deficits noted. No signs and/or symptoms reported regarding the musculoskeletal system. 21:00 Reassessment: Patient appears in no apparent distress at this time. No changes from eb1 previously documented assessment. Patient and/or family updated on plan of care and expected duration. Pain level reassessed. Vital Signs: 15:08 BP 109 / 70; Pulse 84; Resp 21 S; Temp 99.6(O); Pulse Ox 89% on R/A; jl7 15:30 BP 114 / 65; Pulse 81; Resp 25 S; Pulse Ox 97% on R/A; ca1 16:30 BP 123 / 63; Pulse 85; Resp 28; Pulse Ox 96% on R/A; em 17:35 BP 116 / 63; Pulse 84; Resp 24; Pulse Ox 97% on R/A; em 18:17 BP 146 / 69; Pulse 82; Resp 20; Pulse Ox 96% on R/A; kj1 20:00 BP 120 / 66; Pulse 76; Resp 22; Temp 99.1; Pulse Ox 97% ; Pain 3/10; eb1 ED Course: 14:32 Patient arrived in ED. mr 15:14 Chun Cook, RN is Primary Nurse. em 15:15 Triage completed. jl7 15:15 Arm band placed on right wrist. jl7 15:20 Maine Leong FNP-C [facility]. snw 15:20 Alex Jimenez MD is Attending Physician. snw 16:08 Chest Single View XRAY In Process Unspecified. EDMS 18:20 Patient has correct armband on for positive identification. Placed in gown. Bed in low em position. Call light in reach. Side rails up X2. 19:00 Inserted saline lock: 20 gauge in right antecubital area, using aseptic technique. eb1 19:33 Clifton Rose MD is Hospitalizing Provider. snw 20:58 No provider procedures requiring assistance completed. eb1 21:05 Patient admitted, IV remains in place. eb1 Administered Medications: 15:35 Drug: Tussionex Pennkinetic ER 5 ml Route: PO; ca1 17:00 Follow up: Response: No adverse reaction; Marked relief of symptoms em 16:45 Drug: NS 0.9% 1000 ml Route: IV; Rate: 1 bolus; Site: right antecubital; em 17:15 Follow up: IV Status: Completed infusion; IV Intake: 1000ml em 16:45 Drug: Decadron - Dexamethasone 10 mg Route: IVP; Site: right antecubital; em 17:15 Follow up: Response: No adverse reaction em 17:01 Drug: Rocephin 1 grams Route: IV; Rate: calculated rate; Site: right antecubital; em 17:04 Follow up: Response: No adverse reaction; IV Status: Completed infusion; IV Intake: 10mlem 17:05 Drug: Zithromax 500 mg Route: IVPB; Infused Over: 1 hrs; Site: right antecubital; em Intake: 17:04 IV: 10ml; Total: 10ml. em 17:15 IV: 1000ml; Total: 1010ml. em Outcome: 19:34 Decision to Hospitalize by Provider. snw 20:58 Condition: good eb1 21:04 Admitted to ICU accompanied by vero, Report called to UCHE Mak eb1 21:13 Patient left the ED. eb1 Signatures: Dispatcher [employer] EDOK Maine Leong FNP-C DEPUTY COURT CLERK-Csnw Karly FernándezChun, RN RN Yahaira Carias RN RN Jennyfer Shah RN RN eb1 Almita Austin RN RN [facility] Rahat Stephanie kj1
--- NOTE | 2020-04-22 19:35 | EDPHYS ---
Physician Documentation [facility] Name: Valeria Witt Age: 69 yrs Sex: Female : 1950 Arrival Date: 04/22/2020 Time: 14:32 Bed 15 Private MD: ED Physician Alex Jimenez HPI: 04/22 20:36 This 69 yrs old Female presents to ER via Ambulatory with complaints of COVID snw symptoms. 20:36 The patient or guardian reports cough, described as moderate, difficulty breathing, flu snw symptoms, low-grade fever, myalgias, no appetite, vomiting and diarrhea. Onset: The symptoms/episode began/occurred gradually, 1 week(s) ago. Severity of symptoms: At their worst the symptoms were moderate, severe, in the emergency department the symptoms have improved. Associated signs and symptoms: Pertinent positives: chest pain, fever, nausea, vomiting, Cough. The patient has not experienced similar symptoms in the past. [facility]. + CoVid results called to pt on 04/18/20. Pt states she is feeling worse. Historical: - Allergies: 15:15 No Known Allergies; jl7 - PMHx: 15:15 Diabetes - IDDM; Hyperlipidemia; jl7 - Social history:: Smoking status: Patient denies any tobacco usage or history of. ROS: 04/23 01:16 Eyes: Negative for injury, pain, redness, and discharge, ENT: Negative for injury, snw pain, and discharge, Neck: Negative for injury, pain, and swelling, Cardiovascular: Negative for chest pain, palpitations, and edema. Abdomen/GI: Negative for abdominal pain, nausea, vomiting, diarrhea, and constipation, Back: Negative for injury and pain, : Negative for injury, bleeding, discharge, and swelling, MS/Extremity: Negative for injury and deformity, Skin: Negative for injury, rash, and discoloration, Neuro: Negative for headache, weakness, numbness, tingling, and seizure, Psych: Negative for depression, anxiety, suicide ideation, homicidal ideation, and hallucinations. Constitutional: Positive for body aches, chills, fatigue, fever, malaise, poor PO intake. Respiratory: Positive for cough, shortness of breath, at rest. Exam: 01:16 Head/Face: Normocephalic, atraumatic. Eyes: Pupils equal round and reactive to light, snw extra-ocular motions intact. Lids and lashes normal. Conjunctiva and sclera are non-icteric and not injected. Cornea within normal limits. Periorbital areas with no swelling, redness, or edema. ENT: Nares patent. No nasal discharge, no septal abnormalities noted. Tympanic membranes are normal and external auditory canals are clear. Oropharynx with no redness, swelling, or masses, exudates, or evidence of obstruction, uvula midline. Mucous membranes moist. Neck: Trachea midline, no thyromegaly or masses palpated, and no cervical lymphadenopathy. Supple, full range of motion without nuchal rigidity, or vertebral point tenderness. No Meningismus. Chest/axilla: Normal chest wall appearance and motion. Nontender with no deformity. No lesions are appreciated. Cardiovascular: Regular rate and rhythm with a normal S1 and S2. No gallops, murmurs, or rubs. Normal PMI, no JVD. No pulse deficits. 01:16 Abdomen/GI: Soft, non-tender, with normal bowel sounds. No distension or tympany. No guarding or rebound. No evidence of tenderness throughout. Back: No spinal tenderness. No costovertebral tenderness. Full range of motion. MS/ Extremity: Pulses equal, no cyanosis. Neurovascular intact. Full, normal range of motion. Neuro: Awake and alert, GCS 15, oriented to person, place, time, and situation. Cranial nerves II-XII grossly intact. Motor strength 5/5 in all extremities. Sensory grossly intact. Cerebellar exam normal. Normal gait. 01:16 Constitutional: The patient appears alert, awake, anxious. 01:16 Respiratory: the patient does not display signs of respiratory distress, Respirations: normal, Breath sounds: bronchial sounds, that are mild, persistent cough. 01:16 Skin: Appearance: Color: normal in color, Temperature: normal temperature, Moisture: dry. Vital Signs: 04/22 15:08 BP 109 / 70; Pulse 84; Resp 21 S; Temp 99.6(O); Pulse Ox 89% on R/A; jl7 15:30 BP 114 / 65; Pulse 81; Resp 25 S; Pulse Ox 97% on R/A; ca1 16:30 BP 123 / 63; Pulse 85; Resp 28; Pulse Ox 96% on R/A; em 17:35 BP 116 / 63; Pulse 84; Resp 24; Pulse Ox 97% on R/A; em 18:17 BP 146 / 69; Pulse 82; Resp 20; Pulse Ox 96% on R/A; kj1 20:00 BP 120 / 66; Pulse 76; Resp 22; Temp 99.1; Pulse Ox 97% ; Pain 3/10; eb1 MDM: 15:20 Patient medically screened. snw 17:00 Data reviewed: vital signs, nurses notes. Data interpreted: Pulse oximetry: on room air snw is 89 %. Plan: O2 by NC applied. Counseling: I had a detailed discussion with the patient and/or guardian regarding: the historical points, exam findings, and any diagnostic results supporting the discharge/admit diagnosis, lab results, radiology results, the need for further work-up and treatment in the hospital. 17:00 Physician consultation: Clifton Rose MD was called at 17:00, was contacted at 17:00, snw regarding admission, to the telemetry unit. CoVid. 04/22 15:19 Order name: Urine Microscopic Only; Complete Time: 16:59 snw 04/22 15:55 Order name: Urine Dipstick--Ancillary (enter results); Complete Time: 16:17 mt 04/22 16:21 Order name: Blood Culture Adult (2) snw 04/22 16:21 Order name: BMP; Complete Time: 17:40 snw 04/22 16:21 Order name: C-Reactive Protein; Complete Time: 17:40 snw 04/22 16:21 Order name: CBC with Diff; Complete Time: 17:22 snw 04/22 16:21 Order name: D-Dimer; Complete Time: 17:22 snw 04/22 16:21 Order name: Ferritin; Complete Time: 17:40 snw 04/22 16:21 Order name: Lactate; Complete Time: 17:32 snw 04/22 16:21 Order name: LFT's; Complete Time: 17:40 snw 04/22 16:21 Order name: Lipase; Complete Time: 17:40 snw 04/22 16:21 Order name: Procalcitonin; Complete Time: 17:56 snw 04/22 16:21 Order name: PT-INR; Complete Time: 17:22 snw 04/22 16:21 Order name: Ptt, Activated; Complete Time: 17:22 snw 04/22 15:38 Order name: Chest Single View XRAY; Complete Time: 16:22 snw 04/22 16:21 Order name: Troponin (emerg Dept Use Only); Complete Time: 17:40 snw 04/22 16:59 Order name: Urine Culture EDMS 04/22 19:08 Order name: CBC with Automated Diff EDMS 04/22 19:08 Order name: CBC with Automated Diff EDMS 04/22 19:08 Order name: CBC with Automated Diff EDMS 04/22 19:08 Order name: CBC with Automated Diff EDMS 04/22 19:08 Order name: Comprehensive Metabolic Panel EDMS 04/22 19:08 Order name: Comprehensive Metabolic Panel EDMS 04/22 19:08 Order name: Comprehensive Metabolic Panel EDMS 04/22 19:08 Order name: Comprehensive Metabolic Panel EDMS 04/22 15:19 Order name: FSBS; Complete Time: 15:45 snw 04/22 15:19 Order name: Urine Dipstick-Ancillary (obtain specimen); Complete Time: 15:45 snw 04/22 15:38 Order name: O2 Per Protocol; Complete Time: 15:46 snw 04/22 15:38 Order name: O2 Sat Monitoring; Complete Time: 15:46 snw 04/22 16:21 Order name: EKG; Complete Time: 16:23 snw 04/22 16:21 Order name: Cardiac monitoring; Complete Time: 18:01 snw 04/22 16:21 Order name: Droplet/Contact Precautions; Complete Time: 18:01 snw 04/22 16:21 Order name: IV Start; Complete Time: 17:09 snw 04/22 16:21 Order name: Labs collected and sent; Complete Time: 17:09 snw Administered Medications: 15:35 Drug: Tussionex Pennkinetic ER 5 ml Route: PO; ca1 17:00 Follow up: Response: No adverse reaction; Marked relief of symptoms em 16:45 Drug: NS 0.9% 1000 ml Route: IV; Rate: 1 bolus; Site: right antecubital; em 17:15 Follow up: IV Status: Completed infusion; IV Intake: 1000ml em 16:45 Drug: Decadron - Dexamethasone 10 mg Route: IVP; Site: right antecubital; em 17:15 Follow up: Response: No adverse reaction em 17:01 Drug: Rocephin 1 grams Route: IV; Rate: calculated rate; Site: right antecubital; em 17:04 Follow up: Response: No adverse reaction; IV Status: Completed infusion; IV Intake: 10mlem 17:05 Drug: Zithromax 500 mg Route: IVPB; Infused Over: 1 hrs; Site: right antecubital; em Disposition: 04/23 08:46 Co-signature as Attending Physician, Alex Jimenez MD I agree with the assessment and kdr plan of care. Disposition: 04/22/20 19:34 Hospitalization ordered by Clifton Rose for Observation. Preliminary diagnosis is Pneumonia in diseases classified elsewhere - Covid 19 +. - Bed requested for Intensive Care Unit. - Status is Observation. eb1 - Condition is Stable. - Problem is an acute exacerbation. - Symptoms are unchanged. Signatures: Dispatcher [employer] EDTN Alex Jimenez MD MD kdr Therrien, Shelly, COOK HELPER PASTRY-C COOK HELPER PASTRY-Csnw Chun Cook, RN RN em Yahaira Sykes, RN RN jl7 Quinn Marte, RN RN ja1 Jennyfer Lee, RN RN eb1 Almita Austin, RN RN ca1 Corrections: (The following items were deleted from the chart) 04/22 18:28 16:21 Jonas ordered. snw ca1 19:53 19:34 Hospitalization Ordered by Clifton Rose MD for Observation. Preliminary diagnosis ja1 is Pneumonia in diseases classified elsewhere - Covid 19 +. Bed requested for Telemetry/MedSurg (observation). Status is Observation. Condition is Stable. Problem is an acute exacerbation. Symptoms are unchanged. snw 21:13 19:53 04/22/2020 19:34 Hospitalization Ordered by Clifton Rose MD for Observation. eb1 Preliminary diagnosis is Pneumonia in diseases classified elsewhere - Covid 19 +. Bed requested for Intensive Care Unit. Status is Observation. Condition is Stable. Problem is an acute exacerbation. Symptoms are unchanged. ja1
[2020-04-22] MEDS: INSULIN -REGULAR HUMAN 50 UNIT/0.5 ML ML SQ SCH (22:17)
[2020-04-23 04:59] VITALS: BMI 30.2
[2020-04-23 06:02] LABS: Absolute Lymphocytes (CBC) 0.9 K/uL (0.7-4.9); Hematocrit 39.6 % (36.0-45.0); RBC Red Blood Cell Count 4.42 M/uL (3.86-4.86)
[2020-04-23 06:19] LABS: ALT/SGPT 51 U/L (12-78); AST/SGOT 64 U/L (15-37); Albumin 2.5 g/dL (3.4-5.0); Alkaline Phosphatase 103 U/L (45-117); BUN Blood Urea Nitrogen 8 mg/dL (7-18); Bicarbonate 23 mmol/L (21-32); Bilirubin Total 0.3 mg/dL (0.2-1.0); Glucose Level 188 mg/dL (74-106); Potassium 4.1 mmol/L (3.5-5.1); Sodium Level 137 mmol/L (136-145)
[2020-04-23] MEDS: INSULIN -REGULAR HUMAN 50 UNIT/0.5 ML ML SQ SCH ×2 (07:30→11:30)
--- NOTE | 2020-04-23 09:01 | P.DS ---
Admission Date: 04/22/20 Discharge Date: 04/23/20 Primary Care Provider: Keisha Moreno Disposition: ROUTINE DISCHARGE Discharge Condition: GOOD Reason for Admission: covid 19 - Problems (1) COVID-19 Current Visit: Yes Status: Acute (2) Diabetes Current Visit: Yes Status: Acute Qualifiers: Diabetes mellitus type: type 2 Diabetes mellitus tubing tester insulin use: without tubing tester use Diabetes mellitus complication status: without complication Qualified Code(s): E11.9 - Type 2 diabetes mellitus without complications (3) Urine abnormality Current Visit: Yes Status: Acute Brief History of Present Illness: Patient is an office patient of ours. She tested positive for covid this past week. She was having a cough. States she has a lot of sputum in the home. She had some nausea and vomiting for the past 2 days. She came to the ER. Was found to have a pulse ox of 89% and rr of 28. She recieved decadrone. She is resting comfortably. The patient has a normal pulse ox of 97%. Nursing states she desaturates when she gets up she goes down to 87%. Have discussed the patient with Dr. ArzateTobey Hospital Course: Patient is sitting comfortable in bed, having breakfast. She states that she is short of breath. Per nursing her pulse ox has been in the mid 90's drops to 88 when she stands. She is having a cough when she exerts herself. She is doing well she does have active covid. Will be miserable at home for a few weeks. Will give steroids, guafinasen and a zpac. Thank you for allowing us to take part in her care Vital Signs/Physical Exam: Temp Pulse Resp BP Pulse Ox 97.4 F 55 21 H 115/65 97 04/23/20 04:00 04/23/20 04:00 04/23/20 04:00 04/23/20 04:00 04/23/20 00:00 General: Alert, In no apparent distress HEENT: Atraumatic, PERRLA, EOMI Neck: Supple, JVD not distended Respiratory: Clear to auscultation bilaterally, Normal air movement, Other (cough) Cardiovascular: Regular rate/rhythm, Normal S1 S2 Gastrointestinal: Normal bowel sounds, No tenderness Musculoskeletal: No tenderness Integumentary: No rashes Neurological: Normal speech, Normal tone, Normal affect Lymphatics: No axilla or inguinal lymphadenopathy Laboratory Data at Discharge: WBC 3.7 K/uL (4.3-10.9) L D 04/23/20 05:20 Hgb 13.4 g/dL (12.0-15.0) 04/23/20 05:20 Hct 39.6 % (36.0-45.0) 04/23/20 05:20 Plt Count 170 K/uL (152-406) 04/23/20 05:20 PT 12.0 SECONDS (9.5-12.5) 04/22/20 16:45 INR 1.02 04/22/20 16:45 APTT 31.3 SECONDS (24.3-36.9) 04/22/20 16:45 Sodium 137 mmol/L (136-145) 04/23/20 05:20 Potassium 4.1 mmol/L (3.5-5.1) 04/23/20 05:20 BUN 8 mg/dL (7-18) 04/23/20 05:20 Creatinine 0.53 mg/dL (0.55-1.3) L 04/23/20 05:20 Glucose 188 mg/dL (74-106) H 04/23/20 05:20 Total Bilirubin 0.3 mg/dL (0.2-1.0) 04/23/20 05:20 AST 64 U/L (15-37) H 04/23/20 05:20 ALT 51 U/L (12-78) 04/23/20 05:20 Alkaline Phosphatase 103 U/L (45-117) 04/23/20 05:20 Lipase 80 U/L (73-393) 04/22/20 16:45 Home Medications: Anastrozole [Arimidex] 1 mg PO BEDTIME 04/22/20 Metformin HCl 500 mg PO DAILY 04/22/20 Pravastatin Sodium 40 mg PO BEDTIME 04/22/20 Azithromycin Tab [Zithromax*] 250 mg PO ZPAK #1 rafal 04/23/20 Ondansetron [Zofran (Odt)*] 4 mg PO Q6H PRN 5 Days #10 tab 04/23/20 Prednisone [Sterapred Ds] 10 mg PO DAILY 5 Days #5 tab.ds.pk 04/23/20 guaiFENesin [Guaifenesin] 100 ml PO TIDP PRN #50 ml 04/23/20 New Medications: guaiFENesin [Guaifenesin] 100 ml PO TIDP PRN #50 ml PRN Reason: Cough Prednisone [Sterapred Ds] 10 mg PO DAILY 5 Days #5 tab.ds.pk Azithromycin Tab [Zithromax*] 250 mg PO ZPAK #1 rafal Ondansetron [Zofran (Odt)*] 4 mg PO Q6H PRN 5 Days #10 tab PRN Reason: Nausea / Vomiting Diet: ADA Activity: Ad alexus Followup: Keisha Moreno FNP BC [ALLIED HEALTH PROFESSIONAL] - If your Condition Changes Time spent managing pt's care (in minutes): 40
[2020-04-23] MEDS ORDERED: guaiFENesin 100 MG/5 ML UCUP PO PRN (09:02)
[2020-04-23 12:42] VITALS: O2SAT 94
[2020-04-23 13:03] VITALS: BP 95/73; TEMP 97.6
[2020-04-23] MEDS ORDERED: ENOXAPARIN 40 MG/0.4 ML SQ SCH (17:00)
--- NOTE | 2020-04-24 09:00 | EKG ---
Test Date: 2020-04-22 Test Time: 17:03:28 Furnishings Conservator: LUCILLE MEASUREMENT RESULTS: Intervals: Rate: 87 [place]: 172 QRSD: 132 QT: 398 QTc: 478 [place]: P: 60 [place]: 172 QRS: 91 T: 6 INTERPRETIVE STATEMENTS: Normal sinus rhythm Right bundle branch block T wave abnormality, consider inferior ischemia Abnormal ECG No previous ECG available for comparison Electronically Signed On 04-24-20 08:55:45 CDT by García Valiente
== END 2020-04-23 13:02 | disposition home or self-care (01) ==
LOC: SUPCPDRO 14:26 → ER 14:26 → 3RD-ICU 20:58
PROVIDERS: ADMIT Internal Medicine; ATTEND Internal Medicine
DX: U07.1 COVID-19 (principal); J84.89 Other specified interstitial pulmonary diseases; E11.9 Type 2 diabetes mellitus without complications; R82.71 Bacteriuria; I45.10 Unspecified right bundle-branch block; R94.31 Abnormal electrocardiogram [ECG] [EKG]; E78.5 Hyperlipidemia, unspecified; Z79.84 Long term (current) use of oral hypoglycemic drugs; Z79.899 Other long term (current) drug therapy
CPT/HCPCS: 93005; 87040 ×2; 87088; 85025 ×2; 87086; 80048; 36415; 85610; 82947 ×3; 85379; 80076; 83605; 85730; 84484; 82728; 83690; 80053; 84145; 86140; 71045; 96375; 96374; 99285; J0456; J1100; J0696; J7030 ×2; G0378 ×3; 81003; 81015

== ENCOUNTER 2020-05-04 12:44 | Emergency (ER) | payer OTHER ==
--- NOTE | 2020-05-04 13:58 | RAD REPORT ---
EXAM DESCRIPTION: Monica Single View05/04/2020 1:48 pm CLINICAL HISTORY: Cough COMPARISON: April 22 FINDINGS: [id number] bilateral pulmonary opacities are minimally improved The heart is normal size IMPRESSION: Minimal improvement in mild to moderate bilateral pulmonary opacities which may indicate Covid pneumonia
--- NOTE | 2020-05-04 14:07 | EDPHYS ---
Physician Documentation [facility] Name: Valeria Witt Age: 69 yrs Sex: Female : 1950 Arrival Date: 05/04/2020 Time: 12:46 Bed 11 Private MD: EDIS Physician Jefferson Leach HPI: 05/04 14:02 This 69 yrs old Female presents to ER via Ambulatory with complaints of kb COVID+, Cough, Fever. 14:02 The patient or guardian reports cough, that is intermittent, described as mild, with no kb sputum. Onset: The symptoms/episode began/occurred 2 week(s) ago. Severity of symptoms: At their worst the symptoms were moderate, in the emergency department the symptoms are unchanged. Modifying factors: The symptoms are alleviated by nothing, the symptoms are aggravated by nothing. Associated signs and symptoms: Pertinent positives: fever, Pertinent negatives: chest pain, diarrhea, ear ache, nausea, rhinorrhea, sore throat, vomiting. The patient has not experienced similar symptoms in the past. The patient has been recently seen by a physician:. Pt reports cough and fever for 2 weeks. States she was positive for covid and is taking the prescribed medications, but it isn't helping. Historical: - Allergies: 13:14 No Known Allergies; ll1 - PMHx: 13:14 Hyperlipidemia; Diabetes - IDDM; ll1 - PSHx: 13:14 breast CA; ll1 - Social history:: Smoking status: Patient denies any tobacco usage or history of. Patient/guardian denies using alcohol, street drugs, tobacco products. ROS: 14:01 ENT: Negative for injury, pain, and discharge, Neck: Negative for injury, pain, and kb swelling, Cardiovascular: Negative for chest pain, palpitations, and edema, Abdomen/GI: Negative for abdominal pain, nausea, vomiting, diarrhea, and constipation, Back: Negative for injury and pain, MS/Extremity: Negative for injury and deformity, Skin: Negative for injury, rash, and discoloration, Neuro: Negative for headache, weakness, numbness, tingling, and seizure. 14:01 Constitutional: Positive for fever, Negative for body aches, chills, fatigue, malaise, poor PO intake, weight loss. 14:01 Respiratory: Positive for cough, Negative for dyspnea on exertion, hemoptysis, orthopnea, pleurisy, shortness of breath, sputum production, wheezing. Exam: 14:01 Constitutional: This is a well developed, well nourished patient who is awake, alert, kb and in no acute distress. Head/Face: Normocephalic, atraumatic. Chest/axilla: Normal chest wall appearance and motion. Nontender with no deformity. No lesions are appreciated. Cardiovascular: Regular rate and rhythm with a normal S1 and S2. No gallops, murmurs, or rubs. Normal PMI, no JVD. No pulse deficits. Respiratory: Lungs have equal breath sounds bilaterally, clear to auscultation and percussion. No rales, rhonchi or wheezes noted. No increased work of breathing, no retractions or nasal flaring. Abdomen/GI: Soft, non-tender, with normal bowel sounds. No distension or tympany. No guarding or rebound. No evidence of tenderness throughout. Skin: Warm, dry with normal turgor. Normal color with no rashes, no lesions, and no evidence of cellulitis. MS/ Extremity: Pulses equal, no cyanosis. Neurovascular intact. Full, normal range of motion. Neuro: Awake and alert, GCS 15, oriented to person, place, time, and situation. Cranial nerves II-XII grossly intact. Motor strength 5/5 in all extremities. Sensory grossly intact. Cerebellar exam normal. Normal gait. Vital Signs: 13:10 BP 112 / 73; Pulse 103; Resp 18; Temp 98.3; Pulse Ox 96% ; Pain 0/10; ll1 MDM: 13:13 Patient medically screened. kb 14:01 Data reviewed: vital signs, nurses notes. Data interpreted: Pulse oximetry: on room air kb is 96 %. Interpretation: normal. Counseling: I had a detailed discussion with the patient and/or guardian regarding: the historical points, exam findings, and any diagnostic results supporting the discharge/admit diagnosis, radiology results, the need for outpatient follow up, a family practitioner, to return to the emergency department if symptoms worsen or persist or if there are any questions or concerns that arise at home. 05/04 13:13 Order name: Chest Single View XRAY; Complete Time: 14:01 kb Administered Medications: No medications were administered Disposition: 20:34 Co-signature as Attending Physician, Jefferson Leach MD I agree with the assessment and jamie plan of care. Disposition: 05/04/20 14:06 Discharged to Home. Impression: Viral pneumonia, unspecified. - Condition is Stable. - Discharge Instructions: COVID-19. - Medication Reconciliation Form, Thank You Letter, Antibiotic Education, Prescription Opioid Use form. - Follow up: Emergency Department; When: As needed; Reason: Worsening of condition. Follow up: Private Physician; When: 2 - 3 days; Reason: Recheck today's complaints, Continuance of care, Re-evaluation by your physician. Signatures: Dispatcher [employer] EDOK Jessica Giang, YOKER MACHINE OPERATOR-C YOKER MACHINE OPERATOR-Jefferson Oliver MD MD cha Williams, Irene, RN RN Stefano Frey RN RN ll1 Corrections: (The following items were deleted from the chart) 14:55 14:06 05/04/2020 14:06 Discharged to Home. Impression: Viral pneumonia, unspecified. iw Condition is Stable. Forms are Medication Reconciliation Form, Thank You Letter, Antibiotic Education, Prescription Opioid Use. Follow up: Emergency Department; When: As needed; Reason: Worsening of condition. Follow up: Private Physician; When: 2 - 3 days; Reason: Recheck today's complaints, Continuance of care, Re-evaluation by your physician. kb
--- NOTE | 2020-05-04 14:07 | ER ---
Nurse's Notes [facility] Name: Valeria Witt Age: 69 yrs Sex: Female : 1950 Arrival Date: 05/04/2020 Time: 12:46 Bed 11 Private MD: Diagnosis: Viral pneumonia, unspecified Presentation: 05/04 13:10 Chief complaint: Patient states: Taking meds but having cough still since 04/14 Covid ll1 positive. Coronavirus screen: Surgical mask placed on patient. Patient moved to private room, placed in contact and droplet isolation with eye protection until further assessment. Patient reports a cough. Patient denies shortness of breath or difficulty breathing. Patient denies travel on a cruise ship or to a country the [facility] currently lists as an affected area. Patient reports contact with known and/or suspected case of COVID-19. Ebola Screen: Patient denies travel to an Ebola-affected area in the 21 days before illness onset. Initial Sepsis Screen: Does the patient meet any 2 criteria? No. Patient's initial sepsis screen is negative. Initial Sepsis Screen:. Risk Assessment: Do you want to hurt yourself or someone else? Patient reports no desire to harm self or others. Onset of symptoms was April 14, 2020. 13:10 Method Of Arrival: Ambulatory ll1 13:10 Acuity: YAMILET 4 ll1 Historical: - Allergies: 13:14 No Known Allergies; ll1 - PMHx: 13:14 Hyperlipidemia; Diabetes - IDDM; ll1 - PSHx: 13:14 breast CA; ll1 - Social history:: Smoking status: Patient denies any tobacco usage or history of. Patient/guardian denies using alcohol, street drugs, tobacco products. Vital Signs: 13:10 BP 112 / 73; Pulse 103; Resp 18; Temp 98.3; Pulse Ox 96% ; Pain 0/10; ll1 ED Course: 12:46 Patient arrived in ED. mr 13:13 Jessica [facility]NP-C [facility] kb 13:13 Jefferson Leach MD is Attending Physician. kb 13:14 Triage completed. ll1 13:15 Arm band placed on Patient notified of wait time. ll1 13:48 Chest Single View XRAY In Process Unspecified. EDMS Administered Medications: No medications were administered Outcome: 14:06 Discharge ordered by . kb 14:55 Patient left the ED. iw Signatures: Dispatcher [employer] EDMS Jessica Giang, LEEROY PAVON-Karly Santiago mr Roxy Fuller, RN Stefano Sanchez RN RN ll1
[2020-05-04 14:59] VITALS: BP 112/73; TEMP 98.3; O2SAT 96
--- OUTSIDE RECORDS SUMMARY | 2020-05-04 16:56 | XMS REPORT | Continuity of Care Document ---
:1950 Author Organization [facility] t Address [address] [place] [address] Care Team Providers Name Role Phone Giorgio NEVAREZ Primary Care Physician Vera NEVAREZ Attending Clinician Lai CARDIAC CARE NURSE Attending Clinician Jorge YUP, R Attending Clinician Jaret NEVAREZ K Attending Clinician Michael PAVON, L Attending Clinician Zackery IVEY Attending Clinician Unavailable Silvano PAVON Attending Clinician Thomas CARDIAC CARE NURSE Attending Clinician Unavailable Bhavani NEVAREZ Attending Clinician Eleanor NEVAREZ Attending Clinician Montrell DOUGHERTY C Attending Clinician Payers Payer Name Policy Type Policy Effective Date Expiration Date Sour ce Number CIGNA MEDICARECIGNA [id number] 2019 MD Mayra ibanez [facility] 00:00:00 MEDICARE [id number] 10/2019-PresentMedic are Problems Condition Condition Condition Status Onset Resolution Last Treating Co mments Source Name Details Category Date Date Treatment Clinician Date 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 07-18 Anderso use of use of 00:00: n aromatase aromatase 00 inhibitor inhibitor Encounter Encounter Disease Active for for 8-25 Anderso observatio observatio 00:00: n n for [...] Menopausal Disease Active M D [place] 7- Parmjit o 00:00: n 00 Vitamin D Vitamin D Disease Active deficiency deficiency 04-27 An derso 00:00: n 00 Infiltrati Infiltrati [...] Active [facility] Diabetes Diabetes Problem [facility] Hyperlipid Hyperlipid Problem Active [facility] History of History of Problem Active [facility] breast breast [facility] Obesity Obesity Problem Active [facility] (BMI (BMI [facility] - 30-39.9) 30-39.9) [facility] Cancer Cancer Problem Active [facility] 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[facility] ed type 2 ed type 2 [facility] - diabetes diabetes [facility] a mellitus mellitus l with with Outpati hyperglyce hyperglyce en t [facility] Elevated Elevated Problem Active [facility] Cervical Cervical Disease Active dysplasia [...] Source Sex Assigned At MD Parnell on Tobacco use and 2019-06-06 2019-06-06 Never used MD Parnell on exposure 00:00:00 00:00:00 Alcohol intake 2019-06-06 2019-06-06 Current MD Iqra thornton 00:00:00 00:00:00 non-drinker of alcohol (finding) Smoking Status Start Date Stop Date Source Never smoker MD Leach Medications Ordered Filled Start Stop Current Ordering Indication Dosage Frequency Signature Comments Components Source Medication Medication Date Date Medication? Clinician (SIG) Name Name Saccharomyc 2020-0 2020- No 250mg Take 250 MD es 4-21 04-21 mg by Andersperlita lopez 15:13: 00:00 mouth n (FLORASTOR) 51 :00 [...] No 150mg Take 150 M D (ZANTAC) 4-21 04-21 mg by Anderso 150 MG 15:13: [...] injection buttocks every 6 (six) months. calcium 2020- No 600mg Take 600 MD citrate/vit [...] ent FORMULARY Clinics TO INSURANCE) Glucose Glucose 2019- Yes Kailey as [facility] testing testing 4-03 Mill[facility] directed [facility] - strips strips 00:00: (dispense Tamir malinda 00 testing l strips Outpati formulary ent to Clinics insurance) Metformin Metformin 2019- Yes Kailey [address] [facility] HCl HCl 4-03 Millender with a [facility] - 00:00: meal [facility] 00 l Outpati ent Clinics Lancets Lancets Yes Kailey as [facility] 4-03 [facility] directed [facility] - 00:00: (dispense [facility] 00 lancets l formulary Outpati to ent insurance) Clinics metFORMIN 2019- Yes TAKE 1 MD (GLUCOPHAGE 4-03 TABLET BY And erso ) 500 mg 00:00: MOUTH n tablet 00 TWICE DAILY WITH A MEAL FOR DIABETES FOR 30 DAYS FREESTYLE Yes USE MD LITE METER 4-03 DIRECTED Abdullahi so kit 00:00: n 00 omeprazole 2020- No 1{capsu Take 1 M D (PriLOSEC) 8 04-21 le} capsule by An derso 20 mg 00:00: 00:00 mouth n capsule 00 :00 daily. anastrozole 2019- No Personal TAKE 1 MD (ARIMIDEX) 7-02 08-16 history of TABLET BY Anderso 1 mg tablet 00:00: 00:00 malignant MOUTH ONCE n 00 :00 neoplasm of DAILY breast anastrozole 2018- Yes Personal 1mg Take 1 MD (ARIMIDEX) 3-12 history of tablet (1 Anderso 1 mg tablet 00:00: malignant mg) by n 00 neoplasm of mouth breast daily. ergocalcife 2019- No Vitamin D [id number] Take 1 MD rol 07-18 deficiency, capsule Luther rso (DRISDOL) 00:00: 00:00 not (50,000 n 50,000 00 :00 otherwise Units) by units specified mouth capsule every 14 (fourteen) days. Ranitidine Ranitidine Yes Kailey [address] [facility] HCl HCl [facility] Stool Stool Yes Kailey [address] Softener Softener Millender as needed [facility] Pravastatin Pravastatin Yes Kailey [address] [facility] Sodium Sodium Millender [facility] Prolia Prolia Yes Kailey as [facility] Millender directed [facility] Citracal Citracal Yes Kailey as [facility] Plus Plus [facility] directed [facility] Anastrozole Anastrozole Kailey [address] [facility] 05-01 Millender [facility] 00[facility]00 [facility] Vital Signs Vital Name Observation Time Observation Value Comments Source Systolic blood pressure 2020-02-10 15:11:00 126 mm[Hg] MD Leach Diastolic blood pressure 2020-02-10 15:11:00 70 mm[Hg] MD Leach Heart rate 2020-02-10 15:11:00 70 /min MD Abdullahi bailey Body temperature 2020-02-10 15:11:00 37 Marly [...] Procedure Date / Time Performed Performing Clinician [facility] e CALCIUM LEVEL TOTAL 2020-02-10 14:29:50 Priscilla Patel MD PHOSPHORUS LEVEL 2020-02-10 14:29:50 Priscilla Patel MD MAMMO DIGITAL DIAGNOSTIC 2019-12-16 17:35:30 Lashonda Rodriguez MD BILATERAL W MUKESH DEXA BONE MINERAL DENSITY 2019-07-22 16:30:51 Kyle Gamez BOTH HIPS AND SPINE BLOOD UREA NITROGEN 2019-07-22 15:03:00 Kyle Gamez MD SERUM CREATININE 2019-07-22 15:03:00 Kyle Gamez MD CALCIUM LEVEL TOTAL 2019-07-22 15:03:00 Kyle Gamez MD ALBUMIN LEVEL 2019-07-22 15:03:00 Kyle Gamez MD [...] PATH REVIEW 2019-07-22 15:03:00 Palmer Gamez MD SURGICAL BIOPSY HISTORIC 2019-07-04 17:00:00 Conversion, Joanne Leach PATHOLOGY BIOPSY SPECIMEN 2019-07-04 00:00:00 Graciela Schaefer MD INTERPRETATION XR SPINE LUMBAR 2 OR 3 VW 2019-07-01 15:07:47 Lashonda Rodriguez MD LOOM STARTER HISTORIC 2019-06-06 17:00:00 Conversion, Pathology And emmy CYTOPATHOLOGY LOOM STARTER 2019-06-06 00:00:00 Rabel, Kailey MD Anderso n INTERPRETATION Encounters Start End Encounter Admission Attending Care Care Encounter Source Date/Time Date/Time Type Type Clinicians Facility Department ID 2020-01-27 2020-01-27 [facility] [id number] [facility] 08[facility]25[facility]00 08:25:[facility] 2020-01-24 2020-01-24 [facility] [id number] 22[facility]02:00 22:02:00 [facility] 2020-01-23 2020-01-23 [facility] [id number] 11:49:00 11:49:00 [facility] 2020-01-23 2020-01-23 [facility] [id number] 08:45:00 08:45:00 [facility] 2020-01-21 2020-01-21 [facility] [id number] 14:00:00 14:00:00 [facility] Results Test Description Test Time Test Comments Results Result [facility] e Comments Mammography 2019-11-23 There is no [place] [address] mammographic evidence Diagnostic 17:45:55 of malignancy. Routine [...] atan outside location on 02/07/2017, and [facility] and 12/19/2018. FINDINGS:There are [...] RUBIO Path Review RUBIO Path IntThe serum MD Leach 2 protein immunofixation 22:55:07 electrophoretic patternsobtained with the use of antisera against IgG, IgA, IgM,bound kappa and bound lambda light chain proteins do not show definite evidence of a monoclonal gammopathy. Comment: MD Gentry ALMONTE [id number] by: MD Gentry ALMONTE [id number] Date/Time: 07.23.2019 17:55 PM CDT Transcribed Date/Time: 07.23.2019 17:55 PM CDTElectronically Signed By: MD Gentry ALMONTE [id number] on 07.23.2019 17:55 PM [facility] RUBIO 2019-07-23 22:55:06 Test Item Value Reference Range Interpretation Comme nts RUBIO (test code = 5948) No M-protein SHERRI (test code = SHERRI) Please schedule on a Sascha LeachProtein Electrophoresis Path [id number] 22:55:05SPE Path InterpThe serum protein electrophoretic pattern does not show definite evidence of anM-protein peak. If a paraproteinemia is suspected clinically, however, serum free light chain studies, serum protein RUBIO studies, serum immunoglobulin quantitation and urine Bence-Francis protein studies are recommended. Comment: MD Gentry [id number] by: MD Gentry ALMONTE [id number] Date/Time: 07.23.2019 17:55 PM CDT Transcribed Date/Time: 07.23.2019 17:55 PM CDTElectronically Signed By: MD Gentry ALMONTE [id number] on 07.23.2019 17:[address] [facility] Protein Electrophoresis 2019-07-23 22:55:04 Test Item Value [...] code = SHERRI) Please schedule on a clement LeachAlk Phos [id number] 20:06:02 Test Item Value Reference Range Interpretation Comments AlkPhos 11 mcg/L -----R Bone-Mar (test EFERENCE code = 4771) VALUE ------ <=14 (Premenopausal) <=22 (Postmenopausal ) Test Performed by:[facility] [address], [place], [place] [address]Xpb Dir betsey: Tom abdullahi M.D. Ph.D.; CLI A# [id number] SHERRI (test code = Please schedule SHERRI) on a Sascha LeachCTX Beta [id number] 23:45:04 Test Item Value Reference Range Interpretation [...] on a Tues AM MD LeachVitamin D [id number] 21:38:21 Test Item Value Reference Range Interpretation Comments Vitamin D 25 OH (test 22 ng/mL 30-100 L Refere nce Range: code = 8018) Deficiency: <10 ng/mLInsufficie n cy: 10-29 ng/mLSufficienc y : 30-100 ng/mLPotential toxicity: >10 0 ng/mL SHERRI (test code = SHERRI) Please schedule on a Tues AM Lab Interpretation Abnormal (test code = 97479-5) MD LeachNM Bone Mineral Density Both Hips and [id number] 16:41:39. 1. Findings in range of low [...] and agree with the final report.MD LeachPTH [id number] 16:14:50 Test Item Value Reference Range Interpretation Comments PTH Intact (test 64.1 pg/mL 15-65 Testing Per formed at code = 6769) [facility] Lab Ambulat [facility], [address], [place] [address] SHERRI (test code = Please schedule on SHERRI) igor LeachFree [id number] 16:11:03 Test Item Value Reference Range Interpretation Comments T4 Free (test 0.98 ng/dL 0.93-1.7 Testing Perfor med at code = 7502) [facility] Lab Ambulat [facility], [address], [place] [address] SHERRI (test code Please schedule on = SHERRI) igor LeachTSH2019-10-01 16:11:02 Test Item Value Reference Range Interpretation Comments TSH (test code 2.12 0.27- 4.20 Note: New = 7578) mcunit/mL Methodology and Reference Range change effectiv e 02/07/2018 at 14 00 Testing Perform ed at [facility], [address], [place] [address] SHERRI (test code Please schedule on = SHERRI) igor LeachGlomerular Filtration [id number] 16:07:17 Test Item Value Reference Range Interpretation [...] According to th e National Kidney Foundation's Ki dney Disease [...] f ailure <15 Testi ng Performed at [facility] Lab Coffee Bar Attendant [facility], [address], [place] [address] eGFR-MIRI 93 >=60 mL/min/1.73 Normal eGFR >= [...] f ailure <15 Testin g Performed at [facility] Coffee Bar Attendant [facility], [address], [place] [address] SHERRI (test Please schedule code = SHERRI) on a Tues AM MD LeachRibr[facility]vent[facility] [id number] 16:07:15 Test Item Value Reference Range Interpretation Comments Magnesium (test 2.4 mg/dL 1.6-2.6 Testing Perf ormed code = 6359) at [facility] Lab Coffee Bar Attendant [facility], [address], [place], [place] [address] SHERRI (test code = Please schedule SHERRI) on a AM MD LeachAlbumin [id number] 16:07:13 Test Item Value Reference Range Interpretation Comments Albumin Lvl (test 4.1 3.5- 5.2 gm/dL Testing Performed code = 4763) at [facility] Lab Coffee Bar Attendant [facility], [address], [place], [place] [address] SHERRI (test code = Please schedule on SHERRI) a AM MD Leach.Serum [id number] 16:07:12 Test Item Value Reference Range Interpretation Comments Creatinine (test 0.65 mg/dL 0.51-0.95 Testing Per formed code = 5399) at [facility] Lab Coffee Bar Attendant [facility], [address], [place] [address] SHERRI (test code = Please schedule SHERRI) on a AM MD [id number] 16:07:11 Test Item Value Reference Range Interpretation Comments BUN (test code 10 mg/dL 6-23 Testing Perfo rmed at = 5055) [facility] Lab Ambulat ory Care [facility], [address], [facility] [place] [address] SHERRI (test code Please schedule on = SHERRI) a AM MD LeachX-ray Spine Lumbar 2 or 3 [id number] 15:25:24Mild bone demineralization without fracture or metastasis.Interface, Radiology Results In - 07/01/2019 10:27 AM CDTFULL RESULT:Examination: XR SPINE LUMBAR 2 OR 3 VW, 07/01/2019 10:07 AM.Clinical History: 68-year-old woman with breast cancer.. buttermaker use of aromatase inhibitorIndication: History ofbreast cancer with persistent back pain.Comparison: NoneTechnique: XR SPINE LUMBAR 2 OR 3 VWFindings: 1. The bone mineral content is visually mildly diminished for age and gender.2. No fractures.3. No metastatic disease detected. IMPRESSION:Mild bone demineralization without fracture or metastasis.MD Leach
== END 2020-05-04 14:55 | disposition home or self-care (01) ==
LOC: ER 12:44
DX: J12.9 Viral pneumonia, unspecified (principal); Z85.3 Personal history of malignant neoplasm of breast
CPT/HCPCS: 71045; 99282

== ENCOUNTER 2020-05-14 13:10 | Emergency (ER) | payer OTHER ==
--- OUTSIDE RECORDS SUMMARY | 2020-05-14 13:17 | XMS REPORT | Continuity of Care Document ---
:1950 Author Organization [facility] t Address [address] [place] [address] Care Team Providers Name Role Phone Giorgio NEVAREZ Primary Care Physician Vrea NEVAREZ Attending Clinician Lai FORMING MILL OPERATOR Attending Clinician Jorge YUP, R Attending Clinician Jaret NEVAREZ K Attending Clinician Michael PAVON, L Attending Clinician Zackery IVEY Attending Clinician Unavailable Silvano PAVON Attending Clinician Thomas FORMING MILL OPERATOR Attending Clinician Unavailable Bhavani NEVAREZ Attending Clinician Eleanro NEVAREZ Attending Clinician Montrell DOUGHERTY C Attending Clinician Payers Payer Name Policy Type Policy Effective Date Expiration Date Sour ce Number CIGNA MEDICARECIGNA [id number] 2019 MD Mayra ibanez [employer] 00:00:00 MEDICARE [id number] 10/2019-PresentMedic are Problems Condition Condition Condition Status Onset Resolution Last Treating Co mments Source Name Details Category Date Date Treatment Clinician Date 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-18 Anderso use [...] Active [facility] Diabetes Diabetes Problem [facility] Hyperlipid Hyperlipid Problem Active [facility] History of History of Problem Active [facility] breast breast [facility] Obesity Obesity Problem Active [facility] (BMI (BMI [facility] - 30-39.9) 30-39.9) [facility] Cancer Cancer Problem [facility] 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[facility] ed type 2 ed type 2 [facility] - diabetes diabetes Memori a mellitus mellitus l with with Outpati hyperglyce hyperglyce en t [facility] Elevated Elevated Problem Active [facility] Cervical Cervical Disease Active dysplasia [...] breast daily. ergocalcife 2019- No Vitamin D 60325O Take 1 MD rol 07-18 deficiency, capsule Luther rso (DRISDOL) 00:00: 00:00 not (50,000 n 50,000 00 :00 otherwise Units) by units specified mouth capsule every 14 (fourteen) days. Ranitidine Ranitidine Yes Kailey [address] [facility] HCl HCl [facility] Stool Stool Yes Kailey [address] [facility] Softener Softener Millender as needed [facility] Pravastatin Pravastatin Yes Kailey [address] [facility] [address] Sodium Sodium Millender [facility] Prolia Prolia Yes Kailey as [facility] Millender directed [facility] Citracal Citracal Yes Kailey as [facility] Plus Plus Millender directed [facility] Anastrozole Anastrozole Kailey [address] [facility] 05-01 Millender [facility] 00[facility]00 [facility] Vital Signs Vital Name Observation [...] Procedure Date / Time Performed Performing Clinician [facility] e CALCIUM LEVEL TOTAL 2020-02-10 14:29:50 Priscilla [...] 3 VW 2019-07-01 15:07:47 Lashonda Rodriguez MD BIODIESEL ENGINEERING MANAGER HISTORIC 2019-06-06 17:00:00 Conversion, Pathology And emmy CYTOPATHOLOGY BIODIESEL ENGINEERING MANAGER 2019-06-06 00:00:00 Rabel, Kailey MD Anderso n INTERPRETATION Encounters Start End Encounter Admission Attending Care Care Encounter Source Date/Time Date/Time Type Type Clinicians Facility Department ID 2020-01-27 2020-01-27 [facility] [id number] [facility] 08:25:00 08:25:00 [facility] 2020-01-24 2020-01-24 [facility] [id number] [facility] 22:02:00 22:02:00 [facility] ent Clinics 2020-01-23 2020-01-23 [facility] [id number] 11:49:00 11:49:00 [facility] 2020-01-23 2020-01-23 [facility] [id number] [address] 08:45:00 08:45:00 [facility] 2020-01-21 2020-01-21 [facility] [id number] [address] 14:00:00 14:00:00 [facility] Results Test Description Test Time Test Comments Results Result [facility] e Comments Mammography 2019-11-23 There is no [place] [address] mammographic evidence Diagnostic 17:45:55 of malignancy. Routine [...] atan outside location on 02/07/2017, [facility] and 12[facility]19/2018. FINDINGS:There are [...] a monoclonal gammopathy. Comment: MD Gentry ALMONTE [id number] by: MD Gentry ALMONTE [id number] Date/Time: 07.23.2019 17:55 PM CDT Transcribed Date/Time: 07.23.2019 17:55 PM CDTElectronically Signed By: MD Gentry ALMONTE [id number] on 07.23.2019 17:55 PM [facility] RUBIO 2019-07-23 22:55:06 Test Item Value Reference Range Interpretation Comme nts RUBIO (test code = 5948) No M-protein SHERRI (test code = SHERRI) Please schedule on a Sascha LeachProtein Electrophoresis Path [id number] 22:55:05SPE Path InterpThe serum protein electrophoretic pattern does not show definite evidence of anM-protein peak. If a paraproteinemia is suspected clinically, however, serum free light chain studies, serum protein RUBIO studies, serum immunoglobulin quantitation and urine Bence-Francis protein studies are recommended. Comment: MD Gentry [id number] by: MD Gentry ALMONTE [id number] Date/Time: 07.23.2019 17:55 PM CDT Transcribed Date/Time: 07.23.2019 17:55 PM CDTElectronically Signed By: MD Gentry ALMONTE [id number] on 07.23.2019 17:55 PM [facility] Protein Electrophoresis 2019-07-23 22:55:04 Test Item Value [...] Please schedule on a clement LeachAlk Phos [id number] 20:06:02 Test Item Value Reference Range Interpretation Comments AlkPhos 11 mcg/L -----R Bone-Mar (test EFERENCE code = 4771) VALUE ------ <=14 (Premenopausal) <=22 (Postmenopausal ) Test Performed by:[facility] [address], [place], [place] [address]Swq Dir betsey: Tom abdullahi M.D. Ph.D.; CLI A# [id number] SHERRI (test code = Please schedule SHERRI) on a Sascha LeachCTX Beta [id number] 23:45:04 Test Item Value Reference Range Interpretation [...] on a Tues AM MD LeachVitamin D [id number] 21:38:21 Test Item Value Reference Range Interpretation Comments Vitamin D 25 OH (test 22 ng/mL 30-100 L Refere nce Range: code = 8018) Deficiency: <10 ng/mLInsufficie n cy: 10-29 ng/mLSufficienc y : 30-100 ng/mLPotential toxicity: >10 0 ng/mL SHERRI (test code = SHERRI) Please schedule on a Tues AM Lab Interpretation Abnormal (test code = 42066-5) MD LeachNM Bone Mineral Density Both Hips and [id number] 16:41:39. 1. Findings in range of low [...] and agree with the final report.MD LeachPTH [id number] 16:14:50 Test Item Value Reference Range Interpretation Comments PTH Intact (test 64.1 pg/mL 15-65 Testing Per formed at code = 6769) [facility] Lab Ambulat [facility], [address], [place] [address] SHERRI (test code = Please schedule on SHERRI) igor LeachFree [id number] 16:11:03 Test Item Value Reference Range Interpretation Comments T4 Free (test 0.98 ng/dL 0.93-1.7 Testing Perfor med at code = 7502) [facility] Lab Ambul[facility], [address], [address], [place] [address] SHERRI (test code Please schedule on = SHERRI) igor LeachTSH2019-10-01 16:11:02 Test Item Value Reference Range Interpretation Comments TSH (test code 2.12 0.27- 4.20 Note: New = 7578) mcunit/mL Methodology and Reference Range change effectiv e 02/07/2018 at 14 00 Testing Perform ed at [facility], [address], [address], [place] [address] SHERRI (test code Please schedule on = SHERRI) igor LeachGlomerular Filtration [id number] 16:07:17 Test Item Value Reference Range Interpretation [...] <15 Testi ng Performed at [facility] Lab [employer] [facility], [address], [place] [address] eGFR-MIRI 93 >=60 mL/min/1.73 Normal eGFR >= [...] Kidney Foundation's dney Disease Outcome Quality Initiat ame (KDOQI) classif ication and 2012 Kidney Disease [...] f ailure <15 Testin g Performed at [facility] [employer] [facility], [address], [place] [address] SHERRI (test Please schedule code = SHERRI) on a Tues AM MD LeachInbronsonscripp[facility] [id number] 16:07:15 Test Item Value Reference Range Interpretation Comments Magnesium (test 2.4 mg/dL 1.6-2.6 Testing Perf ormed code = 6359) at [facility] Lab [employer] [facility] [facility], [address], [place] [address] SHERRI (test code = Please schedule SHERRI) on a AM MD LeachAlbumin [id number] 16:07:13 Test Item Value Reference Range Interpretation Comments Albumin Lvl (test 4.1 3.5- 5.2 gm/dL Testing Performed code = 4763) at [facility] Lab [employer] [facility], [address], [address], [place] [address] SHERRI (test code = Please schedule on SHERRI) a AM MD Leach.Serum [id number] 16:07:12 Test Item Value Reference Range Interpretation Comments Creatinine (test 0.65 mg/dL 0.51-0.95 Testing Per formed code = 5399) at [facility] Lab [employer] [facility] [facility], [address], [address], [place] [address] SHERRI (test code = Please schedule SHERRI) on a AM MD [id number] 16:07:11 Test Item Value Reference Range Interpretation Comments BUN (test code 10 mg/dL 6-23 Testing Perfo rmed at = 5055) [facility] Lab [facility], [address], [address], [facility] [place] [address] SHERRI (test code Please schedule on = SHERRI) a AM MD LeachX-ray Spine Lumbar 2 or 3 [id number] 15:25:24Mild bone demineralization without fracture or metastasis.Interface, Radiology Results In - 07/01/2019 10:27 AM CDTFULL RESULT:Examination: XR SPINE LUMBAR 2 OR 3 VW, 07/01/2019 10:07 AM.Clinical History: 68-year-old woman with breast cancer.. 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 The bone mineral content is visually mildly diminished for age and gender.2. No fractures.3. No metastatic disease detected. IMPRESSION:Mild bone demineralization without fracture or metastasis.MD Leach
--- NOTE | 2020-05-14 15:34 | RAD REPORT ---
EXAM DESCRIPTION: SOLEDADLydia Single View05/14/2020 3:15 pm CLINICAL HISTORY: sob COMPARISON: 05/04/2020 FINDINGS: Mild bilateral pulmonary opacities. . The heart is normal size IMPRESSION: Mild bilateral pulmonary opacities have improved since the prior exam
[2020-05-14 16:09] LABS: ALT/SGPT 22 U/L (12-78); AST/SGOT 22 U/L (15-37); Albumin 3.1 g/dL (3.4-5.0); Alkaline Phosphatase 80 U/L (45-117); BUN Blood Urea Nitrogen 9 mg/dL (7-18); Bicarbonate 23 mmol/L (21-32); Bilirubin Direct < 0.1 mg/dL (0-0.2); Bilirubin Total 0.3 mg/dL (0.2-1.0); Glucose Level 169 mg/dL (74-106); Magnesium 2.2 mg/dL (1.8-2.4); NT PRO-BNP 102 pg/mL (<125); Potassium 3.7 mmol/L (3.5-5.1); Protein, Total 7.4 g/dL (6.4-8.2); Sodium Level 142 mmol/L (136-145); Troponin (Emerg Dept Use Only) 0.02 ng/mL (0.0-0.045)
--- NOTE | 2020-05-14 16:40 | ER ---
Nurse's Notes [facility] Name: Valeria Witt Age: 69 yrs Sex: Female : 1950 Arrival Date: 05/14/2020 Time: 13:11 Bed 16 Private MD: Diagnosis: Cough;Acute upper respiratory infection, unspecified-with recurrent cough;Disease of upper respiratory tract, unspecified Presentation: 05/14 13:15 Chief complaint: Patient states: cough, shortness of breath and dizziness that began ss last night. Denies fever. Coronavirus screen: Patient reports a cough. Patient reports shortness of breath or difficulty breathing. Patient denies measured and/or subjective temperature greater than 100.4F prior to today's visit. Patient denies travel on a cruise ship or to a country the [facility] currently lists as an affected area. Patient reports contact with known and/or suspected case of COVID-19. Proceed with normal triage. Ebola Screen: Patient denies exposure to infectious person. Patient denies travel to an Ebola-affected area in the 21 days before illness onset. Initial Sepsis Screen: Does the patient meet any 2 criteria? No. Patient's initial sepsis screen is negative. Does the patient have a suspected source of infection? No. Patient's initial sepsis screen is negative. Risk Assessment: Do you want to hurt yourself or someone else? Patient reports no desire to harm self or others. Onset of symptoms was May 13, 2020. 13:15 Method Of Arrival: Ambulatory ss 13:15 Acuity: YAMILET 3 ss Triage Assessment: 17:01 General: Appears in no apparent distress. Behavior is calm, cooperative. Pain: Denies ks7 pain. Respiratory: Reports shortness of breath cough that is Onset: The symptoms/episode began/occurred since April 16, the patient has mild shortness of breath. Historical: - Allergies: 13:17 No Known Allergies; ss - PMHx: 13:17 Diabetes - IDDM; Hyperlipidemia; breast CA; ss - Immunization history:: Adult Immunizations up to date. - Social history:: Smoking status: Patient denies any tobacco usage or history of. Screenin:02 Abuse screen: Denies threats or abuse. Denies injuries from another. Nutritional ks7 screening: No deficits noted. Tuberculosis screening: No symptoms or risk factors identified. Fall Risk None identified. Assessment: 15:00 Reassessment: Patient is alert, oriented x 3, equal unlabored respirations, skin ks7 warm/dry/pink. 16:00 Reassessment: No changes from previously documented assessment. ks7 17:02 Cardiovascular: Rhythm is regular. Respiratory: Airway is patent Respiratory effort is ks7 even, unlabored, Breath sounds are clear in left posterior upper lobe and left posterior lower lobe Breath sounds with crackles in right posterior middle lobe and right posterior lower lobe. Vital Signs: 13:15 BP 132 / 71; Pulse 91; Resp 19; Temp 97.9(TE); Pulse Ox 97% on R/A; Weight 72.57 kg; ss Height 5 ft. 1 in. (154.94 cm); Pain 0/10; 14:31 BP 115 / 61; Pulse 83; Resp 20; Pulse Ox 93% on R/A; dh4 15:00 BP 113 / 75; Pulse 88; Resp 18; Temp 98(TE); Pulse Ox 95% on R/A; Pain 0/10; ks7 16:00 BP 115 / 69; Pulse 71; Resp 18; Pulse Ox 95% on R/A; Pain 0/10; ks7 17:16 BP 133 / 78; Pulse 80; Resp 18; Temp 97.9(TE); Pulse Ox 100% on R/A; Pain 0/10; ks7 13:15 Body Mass Index 30.23 (72.57 kg, 154.94 cm) ED Course: 13:11 Patient arrived in ED. as 13:17 Triage completed. ss 13:17 Arm band placed on left wrist. ss 13:31 Elena Cervantes, RN is Primary Nurse. ks7 13:43 Alex Jimenez MD is Attending Physician. kdr 15:15 XRAY Chest (1 view) In Process Unspecified. EDMS 17:02 Patient has correct armband on for positive identification. Bed in low position. Call ks7 light in reach. Side rails up X2. 17:02 No provider procedures requiring assistance completed. Missed attempt(s): 20 gauge labs ks7 drawn, no iv start. 17:04 Throat Culture Sent. ks7 17:23 Patient did not have IV access during this emergency room visit. ks7 Administered Medications: No medications were administered Outcome: 16:39 Discharge ordered by . kdr 17:23 Discharged to home ambulatory. ks7 17:23 Condition: good 17:23 Discharge instructions given to patient, Instructed on discharge instructions, medication usage, stay at home for another 2 weeks. do not go out into public Demonstrated understanding of instructions, medications, Prescriptions given X 1. 17:24 Patient left the ED. ks7 Signatures: Dispatcher [employer] EDMS Alex Jimenez MD MD [facility] Jessica Rodriguez Shelby, RN RN Christian Solor[facility] Elena Cervantes RN RN ks7
--- NOTE | 2020-05-14 16:40 | EDPHYS ---
Physician Documentation [facility] Name: Valeria Witt Age: 69 yrs Sex: Female : 1950 Arrival Date: 05/14/2020 Time: 13:11 Bed 16 Private MD: ED Physician Alex Jimenez HPI: 05/14 19:07 This 69 yrs old Female presents to ER via Ambulatory with complaints of kdr Shortness Of Breath, Cough, Dizziness. 18:58 The patient has shortness of breath at rest. Onset: The symptoms/episode began/occurred kdr acutely. 18:59 Onset: The symptoms/episode began/occurred last night. Duration: The symptoms are kdr intermittent. The patient's shortness of breath is aggravated by exertion, light activity, is alleviated by nothing. Associated signs and symptoms: Pertinent positives: non-productive cough, dizziness, SOB. Severity of symptoms: At their worst the symptoms were mild in the emergency department the symptoms have improved moderately. The patient has experienced similar episodes in the past, a few times, several times. The patient has been recently seen by a physician: the patient's primary care provider. 18:59 The patient tested positive for COVID at the end of March and became concerned when she kdr redeveloped a slight cough. She has no other concerns or c/o. Historical: - Allergies: 13:17 No Known Allergies; ss - PMHx: 13:17 Diabetes - IDDM; Hyperlipidemia; breast CA; ss - Immunization history:: Adult Immunizations up to date. - Social history:: Smoking status: Patient denies any tobacco usage or history of. ROS: 18:59 Constitutional: Negative for fever, chills, and weight loss, Eyes: Negative for injury, kdr pain, redness, and discharge, ENT: Negative for injury, pain, and discharge, Neck: Negative for injury, pain, and swelling, Cardiovascular: Negative for chest pain, palpitations, and edema, Abdomen/GI: Negative for abdominal pain, nausea, vomiting, diarrhea, and constipation, Back: Negative for injury and pain, : Negative for injury, bleeding, discharge, and swelling, MS/Extremity: Negative for injury and deformity, Skin: Negative for injury, rash, and discoloration, Neuro: Negative for headache, weakness, numbness, tingling, and seizure activity. Psych: Negative for depression, anxiety, suicide ideation, homicidal ideation, and hallucinations, Allergy/Immunology: Negative for hives, rash, and allergies, Endocrine: Negative for neck swelling, polydipsia, polyuria, polyphagia, and marked weight changes, Hematologic/Lymphatic: Negative for swollen nodes, abnormal bleeding, and unusual bruising. Exam: 18:59 Constitutional: This is a well developed, well nourished patient who is awake, alert, kdr and in no acute distress. Head/Face: Normocephalic, atraumatic. Eyes: Pupils equal round and reactive to light, extra-ocular motions intact. Lids and lashes normal. Conjunctiva and sclera are non-icteric and not injected. Cornea within normal limits. Periorbital areas with no swelling, redness, or edema. Neck: Trachea midline, no thyromegaly or masses palpated, and no cervical lymphadenopathy. Supple, full range of motion without nuchal rigidity, or vertebral point tenderness. No Meningismus. Chest/axilla: Normal chest wall appearance and motion. Nontender with no deformity. No lesions are appreciated. Cardiovascular: Regular rate and rhythm with a normal S1 and S2. No gallops, murmurs, or rubs. Normal PMI, no JVD. No pulse deficits. Respiratory: Lungs have equal breath sounds bilaterally, clear to auscultation and percussion. No rales, rhonchi or wheezes noted. No increased work of breathing, no retractions or nasal flaring. Abdomen/GI: Soft, non-tender, with normal bowel sounds. No distension or tympany. No guarding or rebound. No evidence of tenderness throughout. Back: No spinal tenderness. No costovertebral tenderness. Full range of motion. Skin: Warm, dry with normal turgor. Normal color with no rashes, no lesions, and no evidence of cellulitis. MS/ Extremity: Pulses equal, no cyanosis. Neurovascular intact. Full, normal range of motion. Neuro: Awake and alert, GCS 15, oriented to person, place, time, and situation. Cranial nerves II-XII grossly intact. Motor strength 5/5 in all extremities. Sensory grossly intact. Cerebellar exam normal. Normal gait. Psych: Awake, alert, with orientation to person, place and time. Behavior, mood, and affect are within normal limits. Vital Signs: 13:15 BP 132 / 71; Pulse 91; Resp 19; Temp 97.9(TE); Pulse Ox 97% on R/A; Weight 72.57 kg; ss Height 5 ft. 1 in. (154.94 cm); Pain 0/10; 14:31 BP 115 / 61; Pulse 83; Resp 20; Pulse Ox 93% on R/A; dh4 15:00 BP 113 / 75; Pulse 88; Resp 18; Temp 98(TE); Pulse Ox 95% on R/A; Pain 0/10; ks7 16:00 BP 115 / 69; Pulse 71; Resp 18; Pulse Ox 95% on R/A; Pain 0/10; ks7 17:16 BP 133 / 78; Pulse 80; Resp 18; Temp 97.9(TE); Pulse Ox 100% on R/A; Pain 0/10; ks7 13:15 Body Mass Index 30.23 (72.57 kg, 154.94 cm) ss MDM: 16:39 Patient medically screened. kdr 18:59 Data reviewed: vital signs, nurses notes, lab test result(s), radiologic studies. kdr Counseling: I had a detailed discussion with the patient and/or guardian regarding: the historical points, exam findings, and any diagnostic results supporting the discharge/admit diagnosis, lab results, radiology results, the need for outpatient follow up. 05/14 14:52 Order name: Basic Metabolic Panel; Complete Time: 16: [facility] 05/14 14:52 Order name: LFT's; Complete Time: 16: [facility] 05/14 14:52 Order name: Magnesium; Complete Time: 16: [facility] 05/14 14:52 Order name: NT PRO-BNP; Complete Time: 16:31 [facility] 05/14 14:52 Order name: Troponin (emerg Dept Use Only); Complete Time: 16:31 [facility] 05/14 14:52 Order name: XRAY Chest (1 view); Complete Time: 16:31 [facility] 05/14 14:52 Order name: EKG; Complete Time: 14:52 [facility] 05/14 15:01 Order name: Strep; Complete Time: 16:31 [facility] 05/14 15:01 Order name: Influenza Screen (A [facility] 05/14 16:12 Order name: Throat Culture [facility] 05/14 14:52 Order name: Cardiac monitoring; Complete Time: 17:00 [facility] 05/14 14:52 Order name: EKG - Nurse/Tech; Complete Time: 17: [facility] 05/14 14:52 Order name: IV Saline Lock; Complete Time: 17: [facility] 05/14 14:52 Order name: Labs collected and sent; Complete Time: 17: [facility] 05/14 14:52 Order name: O2 Per Protocol; Complete Time: 17: [facility] 05/14 14:52 Order name: O2 Sat Monitoring; Complete Time: 17: [facility] 05/14 15:01 Order name: Document PUI# [facility] 05/14 15:01 Order name: Droplet/Contact Precautions [facility] 05/14 15:01 Order name: Notify Health Dept [phone]/ [facility] Administered Medications: No medications were administered Disposition: 05/14/20 16:39 Discharged to Home. Impression: Cough, Acute upper respiratory infection, unspecified - with recurrent cough, Disease of upper respiratory tract, unspecified. - Condition is Stable. - Discharge Instructions: Upper Respiratory Infection, Adult, COVID-19. - Prescriptions for Virtussin DAC 30- 10-100 mg/5 mL Oral syrup - take 5 milliliter by ORAL route every 4-6 hours As needed; 250 milliliter. - Medication Reconciliation Form, Thank You Letter form. - Follow up: Private Physician; When: 2 - 3 days; Reason: If symptoms return, Further diagnostic work-up, Recheck today's complaints, Continuance of care, Re-evaluation by your physician. - Problem is an ongoing problem. - Symptoms have improved. Signatures: Dispatcher [employer] [facility] Alex Jimenez MD MD [facility] Clarisa Alegria, RN RN Pily Sanders Kathleen RN RN ks7 Corrections: (The following items were deleted from the chart) 15:02 15:02 Influenza Screen (A \T\ B)+[id number].BRZ ordered. [facility] 17:20 15:52 Labs - recollect needed ordered. tracee [email or web address] 17:24 16:39 05/14/2020 16:39 Discharged to Home. Impression: Cough; Acute upper respiratory ks7 infection, unspecified - with recurrent cough; Disease of upper respiratory tract, unspecified. Condition is Stable. Forms are Medication Reconciliation Form, Thank You Letter, Antibiotic Education, Prescription Opioid Use. Follow up: Private Physician; When: 2 - 3 days; Reason: If symptoms return, Further diagnostic work-up, Recheck today's complaints, Continuance of care, Re-evaluation by your physician. Problem is an ongoing problem. Symptoms have improved. kdr
[2020-05-14 17:35] VITALS: BP 133/78; TEMP 97.9; O2SAT 100
--- NOTE | 2020-05-15 07:29 | EKG ---
Test Date: 2020-05-14 Test Time: 16:31:24 [employer] Cellar Dropper: DAVID MEASUREMENT RESULTS: Intervals: Rate: 74 VA: 158 QRSD: 130 QT: 408 QTc: 452 [place]: P: 16 VA: 158 QRS: 87 T: 24 INTERPRETIVE STATEMENTS: Normal sinus rhythm with sinus arrhythmia Right bundle branch block Abnormal ECG Compared to ECG 04/22/2020 17:03:28 T-wave abnormality no longer present Possible ischemia no longer present Electronically Signed On 05-15-20 07:28:55 CDT by García Valiente
== END 2020-05-14 17:24 | disposition home or self-care (01) ==
LOC: ER 13:10
DX: J06.9 Acute upper respiratory infection, unspecified (principal); Z85.3 Personal history of malignant neoplasm of breast
CPT/HCPCS: 71045; 80048; 80076; 83735; 83880; 84484; 87070; 87081; 87804; 93005; 99283

== ENCOUNTER 2021-03-15 14:22 | Emergency (ER) | payer OTHER ==
--- OUTSIDE RECORDS SUMMARY | 2021-03-15 14:25 | XMS REPORT | Continuity of Care Document ---
:1950 Author Organization [facility] t Address [address] [place] [address] Care Team Providers Name Role Phone BARNEY Primary Care Physician Unavailable Vera NEVAREZ Attending Clinician Minnie NEVAREZ Attending Clinician Russ Attending Clinician Unavailable Jorge PAVON R Attending Clinician Macarena YUP Attending Clinician Silvano PAVON Attending Clinician Eleanor NEVAREZ Attending Clinician Sheila IVEY, Pari Wong Attending Clinician Unavailable Payers Payer Name Policy Type Policy Effective Date Expiration Date Sour ce Number CIGNA MEDICARECIGNA [id number] 2019 MD Mayra ibanez [facility] 00:00:00 MEDICARE [id number]/2019-PresentMedi are Problems Condition Condition Condition Status Onset Resolution Last Treating Co mments Source Name Details Category Date Date Treatment Clinician Date prison prison Disease Active current current 07-18 Anderso use [...] Osteoporos Disease Active M D is is 7-13 Anderso 00:00: n 00 Menopausal Menopausal Disease Active M D flushing flushing 04-27 Parmjit o 00:00: n 00 Deficiency Deficiency Disease Active M D of vitamin of vitamin 04-27 An derso D3 D3 00:00: n 00 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 Cervical Cervical Disease Active dysplasia dysplasia Luther rso n Personal Personal Disease Active history of history of An derso therapeuti therapeuti n c c radiation radiation exposure exposure Osteoporos Osteoporos Problem Active [facility] Prediabete Prediabete Problem Active [facility] Ulcer Ulcer Problem [facility] Diabetes Diabetes Problem [facility] Hyperlipid Hyperlipid Problem Active [facility] History of History of Problem Active C [facility] breast breast [facility] cancer cancer [facility] Obesity Obesity Problem Active [facility] (BMI (BMI [facility] - 30-39.9) 30-39.9) Memori a l [facility] Clin[facility] Cancer Cancer Problem Active [facility] 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C HI St ed type 2 ed type 2 Luke s - diabetes diabetes Memori a mellitus mellitus l with with [facility] hyperglyce hyperglyce en t [facility] Elevated Elevated Problem Active [facility] TSH TSH [facility] Clinics Allergies, Adverse Reactions, Alerts This patient has [...] Start Date Stop Date Quantity Comments Source Tobacco use and 2020-08-11 2020-08-11 Never used MD Parnell on exposure 00:00:00 00:00:00 Alcohol intake 2020-08-11 2020-08-11 Current MD Escalona n 00:00:00 00:00:00 non-drinker of alcohol (finding) Sex Ass[birth year] At [birth year] F MD Parnell on 00:00:00 00:00:00 Smoking Status Start Date Stop Date Source Never smoker MD Leach Medications Ordered Filled Start Stop Current Ordering Indication Dosage Frequency Signature Comments Components Source Medication Medication Date Date Medication? Clinician (SIG) Name Name calcium 2019- Yes Take by carbonate/v 1-06 mouth. Parmjit o itamin D3 14:44: n (CALCIUM+D 33 ORAL) pravastatin 2019- Yes 40mg Take 40 mg (PRAVACHOL) 1-06 by mouth Luther rso 40 mg 14:42: daily. n tablet 58 denosumab 2019- Yes 60mg Inject 60 (PROLIA) 60 1-06 mg under Luther rso mg/mL syrg 14:42: the skin n injection 58 every 6 (six) months. prednisoLON 2019- Yes INSTILL 1 M D E acetate 0-02 DROP INTO Abdullahi so (PRED 00:00: EACH EYE n FORTE) 1% 00 TWICE ophthalmic DAILY suspension NEEDED FOR OCULAR IFLAMMATIO N FREESTYLE 2019-0 Yes USE 1 TO 28 gauge 4-05 CHECK Anderso lancets 00:00: GLUCOSE n 00 ONCE DAILY Blood Blood 2020-0 Yes Kailey as [facility] Glucose Glucose 4-03 Millender directed [facility] - Monitor Monitor 00:00: (DISPENSE Me moria 00 BLOOD l GLUCOSE Outpati MONITOR ent FORMULARY Clinics TO INSURANCE) Glucose Glucose 2020-0 Yes Kailey as [facility] testing testing 4-03 Millender directed [facility] - strips strips 00:00: (dispense Tamir malinda 00 testing l strips Outpati formulary ent to Clinics insurance) Metformin Metformin 2020-0 Yes Kailey [address] [facility] [address] HCl HCl 4-03 Millender with a [facility] - 00:00: meal Memoria 00 l [facility] ent [facility] Lancets Lancets Yes Kailey as [facility] 4-03 Millender directed [facility] - 00:00: (dispense Memoria 00 lancets l formulary [facility] to ent insurance) [facility] metFORMIN Yes TAKE 1 (GLUCOPHAGE 4-03 TABLET BY And erso ) 500 mg 00:00: MOUTH n tablet 00 TWICE DAILY WITH A MEAL FOR DIABETES FOR 30 DAYS FREESTYLE Yes USE LITE METER 4-03 DIRECTED Abdullahi so kit 00:00: n 00 anastrozole Yes Personal 1mg Take 1 (ARIMIDEX) 3-12 history of tablet (1 Anderso 1 mg tablet 00:00: malignant mg) by n 00 neoplasm of mouth breast daily. Ranitidine Ranitidine Yes Kailey [address] [address] HCl HCl Millender [facility] ent [facility] Stool Stool Yes Kailey [address] [address] Softener Softener Millender as needed [facility] Pravastatin Pravastatin Yes Kailey [address] Sodium Sodium [facility]ender [facility] Prolia Prolia Yes Kailey as [facility] Millender directed [facility] Citracal Citracal Yes Kailey as [facility] Plus Plus Millender directed [facility] Anastrozole Anastrozole Kailey [address] [facility] [facility] 05-01 Millender [facility] - 00:00 Memoria :00 [facility] Vital Signs Vital Name Observation Time Observation Value Comments Source Systolic blood pressure 2021-02-09 16:00:00 132 mm[Hg] MD Leach Diastolic blood pressure 2021-02-09 16:00:00 83 mm[Hg] MD Leach Heart rate 2021-02-09 16:00:00 65 /min MD Abdullahi bailey Respiratory rate 2021-02-09 16:00:00 18 /min MD Williams parker Body temperature 2021-02-09 15:52:00 37 Marly MD Williams parker Body weight 2021-02-09 15:52:00 73.3 kg MD Abdullahi bailey BMI 2021-02-09 15:52:00 30.53 kg/m2 MD Abdullahi bailey Oxygen saturation in 2020-08-27 14:42:05 100 /min MD Leach Arterial blood by Pulse oximetry Body height 2020-08-10 13:43:00 154.9 cm MD Abdullahi bailey Procedures Procedure Date / Time Performed Performing Clinician [facility] e CALCIUM LEVEL TOTAL 2021-02-09 14:52:00 Kyle Gamez MD rson PHOSPHORUS LEVEL 2021-02-09 14:52:00 Kyle Gamez MD THYROID STIMULATING HORMONE 2020-11-02 23:40:00 Kyle Gamez MD FREE THYROXINE 2020-11-02 23:40:00 Kyle Gamez MD CYTOLOGY CENTER ADMINISTRATOR INTERPRETATION 2020-08-27 15:03:00 Marlen Carpio MD CYTOLOGY HPV 16/18 GENOTYPING 2020-08-27 15:03:00 Dorian Carpio MD AND HIGH RISK POOL FREE THYROXINE 2020-08-27 14:25:00 Priscilla Patel MD THYROID STIMULATING HORMONE 2020-08-27 14:25:00 Priscilla Patel MD OP JOSE A REF 2020-08-27 13:57:00 Priscilla Patel MD .RTHYROXINE (T4), FREE BY 2020-08-27 13:57:00 Priscilla Patel MD DIALYSIS, SERUM DEXA BONE MINERAL DENSITY BOTH 2020-08-10 14:05:55 Priscilla Patel MD HIPS AND SPINE ALBUMIN LEVEL 2020-08-10 13:07:00 Priscilla Patel MD BLOOD UREA NITROGEN 2020-08-10 13:07:00 Priscilla Patel MD CALCIUM LEVEL TOTAL 2020-08-10 13:07:00 Priscilla Patel MD SERUM CREATININE 2020-08-10 13:07:00 Priscilla Patel MD MAGNESIUM LEVEL 2020-08-10 13:07:00 Priscilla Patel MD PHOSPHORUS LEVEL 2020-08-10 13:07:00 Priscilla Ptael MD FREE THYROXINE 2020-08-10 13:07:00 Priscilla Patel MD THYROID STIMULATING HORMONE 2020-08-10 13:07:00 Priscilla Patel MD VITAMIN D 25 HYDROXY LEVEL 2020-08-10 13:07:00 Priscilla Patel CTX BETA CROSSLAPS 2020-08-10 13:07:00 Priscilla Patel MD Parmjit on SERUM CREATININE 2020-08-10 13:07:00 Priscilla Patel MD .GLOMERULAR FILTRATION RATE 2020-08-10 13:07:00 Priscilla Patel MD Encounters Start End Encounter Admission Attending Care Care Encounter Source Date/Time Date/Time Type Type Clinicians Facility Department ID 2020-01-27 2020-01-27 [facility] [id number] [facility] 08:25[facility]00 08:25:00 [facility] Outpati ent Clinics 2020-01-24 2020-01-24 [facility] [id number] 22:02:00 22:02:00 [facility] ent Clinics 2020-01-23 2020-01-23 [facility] [id number] 11:49:00 11:49:00 [facility] 2020-01-23 2020-01-23 [facility] [id number] 08:45:00 08:45:00 [facility] ent Clinics 2020-01-21 2020-01-21 [facility] [id number] 14:00:00 14:00:00 [facility] ent [facility] Results Test Description Test Time Test Comments Results Result Comments Source Free T4 2020-11-03 00:19:24 Test Item Value Reference Range Interpretation Comme nts T4 Free (test code = 0.94 ng/dL 0.93-1.70 Testing Performed at [facility] 7502) Lab Service Promoter Salesperson Bl, [facility], [place] [address] SHERRI (test code = SHERRI) [facility] in [facility] MD [id number] 00:19:23 Test Item Value Reference Range Interpretation Comments TSH (test code 3.50 See_Comment Note: New = 7578) Methodology and Reference Range change effectiv e 02/07/2018 at 14 00 Testing Perform ed at [facility] [address] [facility], [address], [place] [address] [Automat ed message] The sy stem which generated this result transmit marshal reference range : 0.27 - 4.20 mcunit/m L. The reference range was not used to int erpret this result as normal/abnormal . SHERRI (test code Schedule in = SHERRI) clinic MD LeachCytology CENTER ADMINISTRATOR [id number] 15:41:00 Test Item Value Reference Range Interpretation Comments Gross Description b7kvkTZxQMQczVMZBHXaMVn (test code = pxtSrTYUjnKSmE3XigmosWX [id number]) llGS7bSI4feLhvdSUvzQVvX O7XUYRmBrPtUBWfzLUuqyHs UvNpLVWmvXMirOF9TMEbMJ0 gscbwPYquKWgpDYNgpcI1RT HdwNRtR4VbXXDfNZ0knrrgI VR0XQegzS2kznXOVasfCd3e dHRibHtcZjFcZmNoYXJzZXQ hKTSuuGerLVKfBPu5yL4HRx pfXMK6ZMYXIpqkQVQsPN0Oo 0wmBZKkmNIxJXJ2BRoimDSg ABBqRFKdCYb9MQTvMQjkdFG wVO7ybVzbXzkzsFhxg9RgzN BcXGlkIDUxMDAyIFxcZGIgI F9GMhYrYSJhXfR7OZJqCPw8 QCb8IV0SXcYbAEQtNXN6ZxO 4ClOyIWp8RWfwMO4XFQF3QZ jsRHciDBG3TFdiXiBiFEAtU iBcXGYgQXJpYWwgXFxmcyAx LFCaSMTrFHqvGoqnWZbbI73 zjZgwlE7bSaflirTcSDU4OD BhciANClxwbGFpblxlcGljT mVzdERvYzEgDQpcbHRycGFy XGxpbjBccmluMCANClxsdHJ mzHwyohAmJOHpT0DkMAAdbW ggdmlhbCByZWNlaXZlZFxwY HRaXBqdTWEpuL7SIUZyADus QCZtuLLHFKC4FJ8nJOaddQQ qszywQVIlB2YsQ8WotrWxxI LbQANxchEwi2zoPZU1ZDKtt BWdpEQnMdQgWedbMQX9CVcf b5cgXDH1ODTfsZZbkWUbNUs xNmQkGkmfVXHsR3HrM2Qjtw R9DQp9 Specimen Information l9ousRBtJPOjwFAqYqGhSOD (test code = 19787) bRHBhi4qoYCZuiBQtMuDuXm NcZnRuYmpcdWMxXGRlZmYwe 7ame451xZXld6muZXNuWnZ4 tIBtLTBzeDRiY466PGMvBNb xo8ijv1XcKETnyEIzk6R9ZX PHtnalnXx7l4bzXiMuOk2ev CELn9LmuFHkIC1dcec0wBaa C74dv7P0OgjiX4ywVEGrOKR vC6GpJZ0fNBPvNyi5YSK2RW O5JOKqZRIyF7YhDC4sQQNrb WUwIDtccmVkMFxncmVlbjBc Vdf8YKT4XXX6JBVzVCMxHQg agxRjigZpHim3BIIsOHI1US ReJNR2FKjwbpPsxlIjTvw3K WItL510RFJ4lSemy4gkEJQ9 IGUvEXCcVyPqFx2soYZnV78 5ZEKrYFWFQVVivMn1FDVtyk QvazTajZSLo985I637GEVoL YZdMLg9RnMDJXPxfoe0jO1y WJHroa32eSthrcAbc24deEH yXGxpMzYwIERlZmluaXRpb2 6lEIgzdDl9c8zxluIvaMTGK OOpvkd4tU1iO834NVB0KESw KWi8VYfotGLwoP0jaPM4ANm xXGZzNDhcYlxzYjEwMFxzYT IqAEwhmCXny9D3zSnhFOtmh sSsHYyeDPUkarMVEFh9i5ah EkwwqaK3jUYjb7E9dWekTHu gauTwGjoznzT9MOLsy7QtJZ Arq4AlZCQeb2kiON42eKrwn cVrGUWniZNvf9KcoT4tJEA1 sFippcpec83ldOZhHN48vPz pbmVsZXZlbDNcZnMyOFxiXH NiMTAwXHNhMTAwXHNsMFxvd PGwnC3ayXD3YEgxMGgeCMQo UQmyE723DEF5CYKsVEr8MJn czXKpvF3cyCN7DMq4SUXtAh RcYlxzYjEwMFxzYTEwMFxzb DFnz7O7xCilKGefvgJnIEff OKUixaXPSZz2r7aoRAclaoS 3sPKjo9N5fQnqQGvvvzAbUQ yzzzVlXCLme2UaUBZfv2NiV XUtd2unAS05tLoukcUxGECe nOWug1DmqS2gROT3eJoigeJ tRBTbYAf6QLhqfVQciW0xsU P7LJa5XPYaGCMvPewuElJjC UyqGZFwOYwgmRBal6P1iWgr ZWxldmVsNlxrZWVwbiBINjt 3y7isZFAbx76ymHBkVCriWD UmszLzxkh2y9jwOGDzv49lz HQwXGxpMzYwXHJpMzYwXHNi MTAwXHNhMTAwXHNsMCBCbG9 dg3V5u1LhC778SADgVBFlrT ASITXYG536STSyTWCaDbUvA pYqNQLRJ9WUQ302HEQbAXPo bEgpVAOoVQRcTAanRF3rwFJ giZO3kLtaV2LyAoq1cQlnHm TwQRbuZBPcaX7vQ405EICgA YafnCheS9N5NFSzjQrei4Pv PPmzRUTtrG0dY309IELbABy cZjJcZnMyMFxiIEtleWJvYX QzR903RQSfHEaebrZ4cFBrG sRtLmMgBHw0mBGjcZd5MAvb rShbAYT1OKR4Qoe3D7d9lBM 6EiQaeHb5Gnt1ARK4RPd8TV c1rFS6GZXmpXj9BwckURK8U GYmFCa7pKq4XBWiv3QfXRBb ZCubpEMiNURjEc3spPT0qLQ aS510MWZpGZlwvrA9lYLwLw ZjIsTdGtq0SQYoHHI6NDPxP VDmEptcycOfZ5RpCOVoPAus Qa75yG7jVR0yFONhcl88eSi vobTsFYAbMOh2VQhdVReuui M1XBIlHwVigdDbCfSwykFtJ VRkVMXiDiUgvOSzpy5Kx4Zb f3RfKw5uxIm4p5eoueWkZCE kWDXwzZJqOAs3i3twlpQtBB DcQ9Bmc26uM172BLZoHfOvB lKxZeBcCRJCtJQis2UkpRMd K459AGEnBcKwzROEMHSmZHH gZBq5n3poduO1UPGhW2K7SM qDZAbfVUVov6XpS535EYPvM horyjVHe39vMJ10B790i5tn XKUkhwWbfEnMgrfcj5xkA62 9XHBhcGVydzEyMjQwXHBhcG KgoET2VYWdUN6hqpesKNeqH SoqMRRvgeG8HSFaxGSeP1Dp MZXgXZ0xuiebQOE0SCepIAE yIJF6KuDnCUQca8Csklo1Mj Vgea0vqc14CCV5q9ThhOeuT SE3LZF8NlYdZd5fnZXsGKWk BE1oIeTexSOhQXXtay20dRr hMXibzqGphX1iSmGhVCXnaT MfGKMzEC8syMXcJFWeoF9df mxjXHBnYnJkcmhlYWRccGdi cuZrEk4qxHhfGBK0KZugD8a xpO2bSkZ6TPbjE5xgrK5oEG p4XVvvqQJ6CUSiuB5fCF8re nyph8uyFIddBDmlYNGqwhN5 heL9UTEcsPLiJ0DkjU8nKTV nSN5ipwqwr9noUPK3FZqvME DoJCD8RhMqZJIxi2Bacce9V bErf3KrqBBnXJyfU69jx645 WPLgblLpB0tqwADympiszSG vmacwVApyyrB1CWXhpvGcyX cgaU7iOdCvSnKpAGxnIQ2jF ZEgD2hlcXNdWUUkTNQtG5lv IeMdlE6urFuuKPwfIzEsNeN yRHZWOqADYKE8uJfhZKF0zs CADFCjVOXBnFI2bDAlMrUqY MYeBHYqbUOuVDIpq58jPGL6 YWIsIFxwYXJ9 Specimen Adequacy Satisfactory for (test code = 9847) evaluation TZ/Endocervical (test Endocervical/transforma code = 9848) tion zone component present Diagnosis (test code = Negative for 9849) intraepithelial lesion or malignancy Diagnosis Additional Atrophy Statements (test code = 9850) Comment (test code = o3vgeOOcMGRkvEG5RhPwENC 9835) bx1lhr1DewYPszGUwZHycwP FvoqHkoo97xTQ7nY42XE6mU PYjJtN2VVHghqN0Fmn8RKTk AATfwLJjT508v8rbp6ceesE nkQO8iUxxZJQxUVR7BkEyGR W3PAH9WIn2eYOcJpBmoLrtT FsfFSL1YxVeBVc7uLMrDpQr cDo0KZEiFJC8IZl0MAf4xZR 9PKPlyNa8BgCyBHN2XvrkIK f7zPe5MXOalBo6YrVpTQC9D YPnIPMfwAzsgE8uCmEmOOZB upUmoZPkmP1zziQhv7ula9i yPtJioNRqdHu2UTP3sEKxfM LuOGAkf8GbOBF9sJJgE4Yys RZwz4HcTDKlc3WxaZRvVGqw JdWbHYetNoztxAu8NHPpKST ho2Hhtqg0aJRxOCKig16oeV hwMTBenHGfd0RvYI0ulHWgj DVhcUubTNNdqBloSV6dIPWu SQZ5uvAdi9Sljv6chSqgalX 9i78gAVAdrOFwcxGepG0hNI xwYXJ9 HPV Reflex for Natural Resources Specialist Yes (test code = 9974) Informational Points j7yiyNYtCBEtdPLgGcStJCO (test code = 9836) dFHRfh2jkHRQyhCKvSuToPe NcZnRuYmpcdWMxXGRlZmYwe 8zlw825hOChu3xuCWSyCrI6 dIIxMYNucSNqJ650FAZbSDi bq1irk6FlFXNwjFOsl3U7DR MEOErbCPKBABi9n6xvEvKeD hQ5oNJsKLjhG5kytbOcgLBd GRJdVPh0rD89HYOuvJ2gdQE xILovcaHrXoE4FMulDLQyLb X5VBHihTByKSQbY7ftOFTbR NcvPIDnUBfnsUScOLB9nHqq n3B2zNDbrFIowOkeZxGtIkD uOcOAv4RsODr5fVmyV9CwTD QnKoS1vPGwIQQzQMjgOVJwP TRmotJ1iT21ZUfdyiZ7xNMk e0Ayq65pi263aL8yiAYyYYI 0YXPzFLNqrFTcKCIcXPA2EF IypBMmG5tuARGtUU4eqoprG DfoXEmuKKZunXF9HFWxyRXl L4EnEPWuONpjKSTbipm7NfS eEt5akSKvhNuhRKjif3www0 fkbVHmCgw9LRVmHyBzXvuxT Pbes7Bkx6rvMUWoyt8sKNY5 hXTuuHbik3T7lTOyGBWzoJP fknCzQARcGhW1AWgbLF6tni 82HZThKYL9et1keAJejKhfc cTqbIStGZvaQ8SaNZHgg611 FYGvZ5BkQBJyv0G8tjOzLsZ zDPGooDB6rxF3SAQrMYx5oL TsagO8uwPvfVZkQ1nrgE0qH WGfGW3uqvqnr8noJPsmWEqc GCZudVL2efT6AKOykJEoG8K vlQ2bPAFdRYhbLKCijrd3Bl IiTh6uiPCynVgrBCecSztwR WdlXHBnbmNvbnRccGduZGVj XHBsYWluXHBsYWluXGYwXGZ fSjIhkXypxJytkN1nIuPpDf YxHXdmFB2dFECrY9eqmEXqL XIrBEYhC5loQlMqfA6urMfd YQdoowB1UFjfR8Qmbzfxa5E pA4jcJDidU8v5o6feN5bjnB NxOJAuW1MyVT0gsxwzkIUhF 3FviRXzRSE5MrpaT2BsuB7m ZkFte0QmgqBtZLDpqqVqGPO rPFJzREtuKSQtc6NqrOi4NS VfKSWpr3IwzYXdNCRiDA1ki bNimhWqaALrtYFmn4fkynSs YRYlqSkpDeBwcB4gvVTsNS9 hfKCpdDCut1L9XFlcWCFar0 7bPRZiVFd8sFWyRATapMP2q KEyuxQdQyKqaYAhCY7cFMMa t5OvIQPuSATzhqFcvaWoHTZ rZDK4u3pxsCzizcI5jAWbEC Bqo1OwVO5zXWN6pbGbpyLuM 8knerkeLUgpDLO2RY8xLORl mnAHp69tAQVbf1MtVKSrbO9 ypKWdMLcarcDcfXS9HIcktw DcFlGypdEkIRGlnU4ySIHgA O3iOBByptKjso3rvzJmOQBh HBMoT8SslxamvDzollDnOJY llw4vptNuXOQ1VJTFVH2GSI HhKQGjn51aLICmlUpqiJ2no WAeukIdGJUpw5VmkN2zrZTH EAHuF0vmBS2eHAhfi5YluTD bkCOtaBS4YMHyg6NnDwYyax BkeGSoiFOwD6XwnZjeE4ixY QMmJXBlljUoqQRbu7DsXOLu wVZ9iFQoMY1HSnNTe75oURQ hNGVYjhXtSEXbyBlslGO3vf U1cP3tRvGlrLpdjX4wZxKcA xThEufzAR8xPPLfS4iueNFe XZAnRSHpZ3moHrJaxO7heEd mMlxmczIyXHBhcn0= [facility] HPV 16/18 Genotyping and High Risk [id number] 21:26:00 Test Item Value Reference Range Interpretation Comments HPV Type 16 (test code Negative Negative, = 9853) Indeterminate, Invalid HPV Type 18 (test code Negative Negative, = 9854) Indeterminate, Invalid HPV High Risk Negative Negative, Non-16/18 (test code = Indeterminate, 9855) Invalid Informational Points The kalpana HPV Test (test code = 9852) ([employer], [place], [place]) is a qualitative in vitro diagnostic test for the detection of Human Papillomavirus in cervical specimens collected in PreservCyt Solution or SurePathTM Preservation Fluid. The test utilizes amplification of target DNA by the Polymerase Chain Reaction (PCR) and nucleic acid hybridization for the detection of 14 high-risk (HR) HPV types in a single analysis. The test specifically identifies types HPV16 and HPV18 while concurrently detecting the other high risk types (31, 33, 35, 39, 45, 51, 52, 56, 58, 59, 66, and 68). The performance characteristics of this test were validated and determined by the [facility] cytology laboratory. These validation analyses have confirmed the accurate performance of the assay of the intelligence officer basic s stated limit of detection for the target of the test in various specimen types. The [facility] cytology laboratory is authorized under Clinical Laboratory Improvement Amendments (CLIA) to perform high-complexity testing. The [facility] Department of Pathology is accredited by the [employer] ([employer]). MD LeachThyroxine (T4), Free by [id number] 16:48:35 Test Item Value Reference Range Interpretation Comments Free T4-Alleman 1 ng/dL 0.8-2.0 -----ADDITIONAL (test code = INFORMATION---- [facility] 6892-4) s test was carlos a garnica and its performance characteristics determined by [facility] in a man ner consistent with CLIArequir ements. This test has not been cl eared or approved bythe U.S. Food and Drug Administration. Test Performed by:[facility] [id number] [place], [place] [address] Direct or: Tom Morelos M.D. Ph. D.; CLIA# [id number] MD LeachMisc Reference Lab [id number] 16:18:00 Test Item Value Reference Range Interpretation Comments Ref Lab Test Request Ordered Status (test code = 9012) Requested Ref Lab Test Free T4 by equilibrium Name (test code = 9006) dialysis. Requesting Physician Priscilla Patel NP. (test code = 9007) Person to Contact (test Yunier Vizcarra RN. code = 9003) Contact . (test code = 9000) Collection Requirements Red Top, Centrifuge (test code = 9010) within 2 Hours of draw. Special Handling Refrigerated. Instructions (test code = 9011) SHERRI (test code = SHERRI) Schedule 08/27/20 At [facility]. MD LeachVitamin D [id number] 15:37:55 Test Item Value Reference Range Interpretation Comments Vitamin D 25 OH 47 ng/mL 30-100 Reference Ra nge: (test code = Deficiency: 8018) <10 ng/mLInsufficie ncy : 10-29 ng/mLSufficienc y: 30-100 ng/mLPotential toxicity: >10 0 ng/mL SHERRI (test code = Schedule Bone SHERRI) Density Scan And FASTING Labs At [facility] 1 To 7 Days Before Follow Up with Dr. Gamez [place] 08/10/2020.Make Sure Prolia Injection Is Scheduled [address] Gamez's Appointment . MD LeachCTX Beta [id number] 15:22:34 Test Item Value Reference Range Interpretation Comments CTX (test code 720 pg/mL = 5250) Males:<30 years : not gyschtthxtx12-0 0 years: 16 - 584 pg/mL51-70 years: 10 - 704 pg/mL>70 years: 10 - 854 pg/mL Females:Premeno francesco mary grace: 25 - 57 3 pg/mLPostmenopa usa l: 104 - 1008 pg/mL SHERRI (test code Schedule Bone Density = SHERRI) Scan And FASTING Labs At [facility] 1 To 7 Days Before Follow Up with Dr. Gamez Carmel 08/10/2020.Make Sure Prolia Injection Is Scheduled [address] Gamez's Appointment . MD LeachNM Bone Mineral Density Both Hips and [id number] 15:06:211. Osteopenia based on measured bone density of lumbar spine and bilateral femoral necks.2. Significant interval decrease in bone density of the right total hip, likely due to interscan variability. I personally reviewed these image(s) along with the resident's/fellow's interpretations, certify thatif a procedure was performed I was physically present, and agree with the final report.Interface, Radiology Results In - 08/10/2020 10:08 AM CDT FULL RESULT:Examination: Bone Mineral Density (DXA), 08/10/2020Clinical History: 69 year old postmenopausal female treated for breast cancer.Indication: Assessment of bone mineral density.Comparison: 07/22/2019.Technique: Bone mineral density was obtained using Hologic dual-energy X-ray absorptiometry.Findings: The findings are provided in the below table(s).Bone Density: Region Exam Date BMD T- Z- g/cm2 Score Score AP Spine (L1-L4) 08/10/2020 0.823 - 2.0 -0.1 Femoral Neck (Left) 08/10/2020 0.715 -1.3 0.3 Total Hip (Left) 08/10/2020 0.865 -0.7 0.6 Femoral Neck (Right) 08/10/2020 0.713 -1.4 0.2 Total Hip (Right) 08/10/2020 0.873 -0.7 0.6 For postmenopausal women and men age 50 and over, the World Health Organization criteria for BMD interpretation classify patients as: Normal (T-score ator above -1.0), Osteopenia (T-score between -1.0 and -2.5), or Osteoporosis (T-score at or below -2.5). Previous Exams: R egion Exam Age BMD T-score BMD Change vs Date g/cm2 Baseline Previous -AP Spine(L1-L4) 08/10/2020 69 0.823 -2.0 6.0%* -0.6% 07/22/2019 68 0.828 -2.0 6.7%* 7.3%* 07/18/2018 67 0.772 -2.5 -0.5% -0.5% 05/03/2017 66 0.776 -2.5 Total Hip(Left) 08/10/2020 69 0.865 -0.7 0.0% -1.0% 07/22/2019 68 0.874 -0.7 1.0% 2.4% 07/18/2018 67 0.853 -0.8 -1.3% -1.3% 05/03/2017 66 0.865 -0.7 Femoral Neck(Left) 08/10/2020 69 0.715 -1.3 -8.6%* -3.0% 07/22/2019 68 0.737 -1.2 -5.9%* 1.6% 07/18/2018 67 0.726 -1.3 -7.3%* -7.3%* 05/03/2017 66 0.783 -0.8 Total Hip(Right) 08/10/2020 69 0.873 -0.7 1.4% -4.2%* 07/22/2019 68 0.912 -0.4 5.9%* 2.4% 07/18/2018 67 0.890 - 0.5 3.4% 3.4% 05/03/2017 66 0.861 -0.8 Femoral Neck(Right) 08/10/2020 69 0.713 -1.4 -2.0% -2.8% 07/22/2019 68 0.734 -1.2 0.8% 4.7% 07/18/2018 67 0.701 -1.5 -3.7% -3.7% 05/03/2017 66 0.727 -1.2 *Denotes significance at 95% confidence level, site specific LSC for AP Spine = 0.029 g/cm2, site specific LSC for Total Hip = 0.033 g/cm2, site specific LSC for Femoral Neck = 0.045 g/cm2, LSC for 1/3 Forearm = 0.023 g/cm2 IMPRESSION:1. Osteopenia based on measured bone density of lumbar spine and bilateral femoral necks.2. Significant interval decrease in bone density of the righttotal hip, likely due to interscan variability.I personally reviewed these image(s) along with the resident's/fellow's interpretations, certify that if a procedure was performed I was physically present, and agree with the final report.MD Leach Glomerular Filtration [id number] 13:34:27 Test Item Value Reference Range Interpretation Comments eGFR-AA (test 106 See_Comment Normal eGFR >= 60 code = 8062) mL/min/1.73 m2 Note: The eGFR is alexy [...] f ailure <15 Testi ng Performed at [facility] Lab Service Promoter Salesperson [facility], [address], [address], [place] [address] [Automat ed message] The sy stem which generated this result transmit marshal reference range : >=60 mL/min/1.73 sq. m. The reference range was not used to int erpret this result as normal/abnormal . eGFR-MIRI 92 See_Comment Normal eGFR >= 60 (test code = mL/min/1.73 m2 Note: 8063) The eGFR is [...] f ailure <15 Testin g Performed at [facility] HOSPITAL Lab Service Promoter Salesperson [facility], [address], [address], [place] [address] [Automat ed message] The sy stem which generated this result transmit marshal reference range : >=60 mL/min/1.73 sq. m. The reference range was not used to int erpret this result as normal/abnormal . SHERRI (test Schedule Bone code = SHERRI) Density Scan And FASTING Labs At [facility] 1 To 7 Days Before Follow Up with Dr. Gamez Sunday08/10/2020.Make Sure Prolia Injection Is Scheduled [address] Gamez's Appointment . MD LeachMagnesium [id number] 13:34:25 Test Item Value Reference Range Interpretation Comments Magnesium (test 2.2 mg/dL 1.6-2.6 Testing Perf ormed code = 6359) at [facility], [address] [place] [address], [address], [place] [address] SHERRI (test code = Schedule Bone SHERRI) Density Scan And FASTING Labs At [facility] 1 To 7 Days Before Follow Up with Dr. Gamez [place] 08/10/2020.Make Sure Prolia Injection Is Scheduled [address] Gamez's Appointment . MD LeachAlbumin [id number] 13:34:23 Test Item Value Reference Range Interpretation Comments Albumin Lvl 4.0 See_Comment Testing Perform ed (test code = at [facility] 4763) [facility], [address] [place] [address], [address], [place], [place] [address] [Automated mess age] The system [employer] generated this result transmit marshal reference range : 3.5 - 5.2 gm/dL . The reference r bharati was not used to interpret this result as normal/abnormal . SHERRI (test code = Schedule Bone SHERRI) Density Scan And FASTING Labs At [facility] 1 To 7 Days Before Follow Up with Dr. Gamez [place] 08/10/2020.Make Sure Prolia Injection Is Scheduled [address] Gamez's Appointment . MD Leach.Serum [id number] 13:34:22 Test Item Value Reference Range Interpretation Comments Creatinine (test 0.65 mg/dL 0.51-0.95 Testing Per formed code = 5399) at [facility], [address] [place] [address], [address], [place], [place] [address] SHERRI (test code = Schedule Bone SHERRI) Density Scan And FASTING Labs At [facility] 1 To 7 Days Before Follow Up with Dr. Vera Burt 08/10/2020.Make Sure Prolia Injection Is Scheduled [address] Gamez's Appointment . MD [id number] 13:34:21 Test Item Value Reference Range Interpretation Comments BUN (test code 11 mg/dL 6-23 Testing Perfo rmed = 5055) at [facility], [address] [place], [place] [id number], [address], [place], [place] [address] SHERRI (test code Schedule Bone Density = SHERRI) Scan And FASTING Labs At [facility] 1 To 7 Days Before Follow Up with Dr. Gamez [place] 08/10/2020.Make Sure Prolia Injection Is Scheduled [address] Gamez's Appointment . MD Leach
--- NOTE | 2021-03-15 16:01 | RAD REPORT ---
EXAM DESCRIPTION: RAD - Chest Pa And Lat (2 Views) - 03/15/2021 3:39 pm CLINICAL HISTORY: cough times 1 month COMPARISON: Portable April 2020 TECHNIQUE: Frontal and lateral views of the chest were obtained. FINDINGS: The lungs are clear. Interstitial pattern is prominent but diminished compared to the soheila or study. The alveolar opacities on the prior study are no longer seen. Heart size is normal and cent ral vasculature is within normal limits. No pleural effusion or pneumothorax seen. No acute bony fi nding noted. No aortic abnormality. IMPRESSION: No acute cardiopulmonary process. No evidence for residual or recurrent COVID-19 pneumonia.
--- NOTE | 2021-03-15 16:31 | EDPHYS ---
Physician Documentation [facility] Name: Valeria Witt Age: 70 yrs Sex: Female : 1950 Arrival Date: 03/15/2021 Time: 14:24 Bed 17 Private MD: ED Physician Mg Roche HPI: 03/15 15:20 This 70 yrs old Female presents to ER via Ambulatory with complaints of Covid cp test. 15:29 The patient or guardian reports cough, that is intermittent, with productive sputum, in cp mornings. Onset: The symptoms/episode began/occurred 1 month(s) ago. 15:29 Severity of symptoms: in the emergency department the symptoms have improved, mildly. cp Associated signs and symptoms: Pertinent negatives: chest pain, fever, sore throat, vomiting. 15:30 Patient reports she has been seen by primary physician and prescribed cetrizine, cp Flonase NS and antibiotic with some improvement in cough. Patient reports history of acid reflux. Patient has received COVID vaccination. Historical: - Allergies: 14:58 No Known Allergies; ca1 - PMHx: 14:58 breast CA; Diabetes - IDDM; Hyperlipidemia; ca1 - PSHx: 14:58 Appendectomy; ca1 - Immunization history:: Client reports receiving the 2nd dose of the Covid vaccine, Client reports receiving the 1st dose of the Covid vaccine, Pneumococcal vaccine is not up to date, Flu vaccine is up to date. - Social history:: Smoking status: Patient denies any tobacco usage or history of. ROS: 15:35 Constitutional: Negative for body aches, chills, fever, poor PO intake. cp 15:35 Eyes: Negative for injury, pain, redness, and discharge. cp 15:35 ENT: Negative for drainage from ear(s), ear pain, sore throat, difficulty swallowing, difficulty handling secretions. 15:35 Cardiovascular: Negative for chest pain, edema, palpitations. 15:35 Respiratory: Positive for cough, Negative for shortness of breath, wheezing. 15:35 Abdomen/GI: Negative for abdominal pain, nausea, vomiting, and diarrhea. 15:35 Back: Negative for radiated pain. 15:35 Skin: Negative for cellulitis, rash. 15:35 Neuro: Negative for altered mental status, headache, weakness. 15:35 All other systems are negative. Exam: 15:40 Constitutional: The patient appears in no acute distress, alert, awake, cp non-diaphoretic, non-toxic, well developed, well nourished. 15:40 Head/Face: Normocephalic, atraumatic. cp 15:40 Eyes: Periorbital structures: appear normal, Conjunctiva: normal, no exudate, no injection, Sclera: no appreciated abnormality, Lids and lashes: appear normal, bilaterally. 15:40 ENT: External ear(s): are unremarkable, Ear canal(s): are normal, clear, TM's: dullness, bilaterally, Nose: is normal, Mouth: Lips: moist, Oral mucosa: moist, Posterior pharynx: Airway: no evidence of obstruction, patent, Tonsils: are normal in appearance, swelling, is not appreciated, erythema, is not appreciated, exudate, is not appreciated. 15:40 Chest/axilla: Inspection: normal, Palpation: is normal, no crepitus, no tenderness. 15:40 Cardiovascular: Rate: normal, Rhythm: regular, Edema: is not appreciated, JVD: is not appreciated. 15:40 Respiratory: the patient does not display signs of respiratory distress, Respirations: normal, no use of accessory muscles, no retractions, labored breathing, is not present, Breath sounds: are clear throughout, no decreased breath sounds, no stridor, no wheezing. 15:40 Abdomen/GI: Exam negative for discomfort, distension, guarding, Inspection: abdomen appears normal. 15:40 Back: pain, is absent, ROM is normal. 15:40 Skin: no rash present. 15:40 Neuro: Orientation: to person, place \T\ time. Mentation: is normal, Motor: moves all fours, strength is normal, Gait: is steady, at a normal pace, without difficulty. Vital Signs: 14:58 BP 124 / 76; Pulse 78; Resp 16 S; Temp 98.3(TE); Pulse Ox 96% on R/A; Weight 72.57 kg ca1 (R); Height 5 ft. 1 in. (154.94 cm) (R); Pain 0/10; 14:58 Body Mass Index 30.23 (72.57 kg, 154.94 cm) ca1 MDM: 15:04 Patient medically screened. cp 15:40 Differential Diagnosis: Bronchitis Viral Syndrome Pneumonia Other GERD. 16:30 Data reviewed: vital signs, nurses notes, lab test result(s), radiologic studies, plain cp films. 16:30 Test interpretation: by ED physician or midlevel provider: plain radiologic studies. cp Counseling: I had a detailed discussion with the patient and/or guardian regarding: the historical points, exam findings, and any diagnostic results supporting the discharge/admit diagnosis, lab results, radiology results, the need for outpatient follow up, a family practitioner, to return to the emergency department if symptoms worsen or persist or if there are any questions or concerns that arise at home. ED course: VSS. Discussed results of labs and chest xray. Will treat for GERD with ppi and discharge to home for continued monitoring. 03/15 15:12 Order name: XRAY Chest Pa And Lat (2 Views); Complete Time: 16:01 03/15 16:02 Interpretation: Report reviewed. 03/15 16:14 Order name: SARS-COV-2 RT PCR EDCA Administered Medications: No medications were administered Disposition: 17:25 Co-signature as Attending Physician, Mg Roche MD. rn Disposition: 03/15/21 16:31 Discharged to Home. Impression: Cough. - Condition is Stable. - Discharge Instructions: Cough, Adult. - Prescriptions for Protonix 40 mg Oral Tablet - take 1 tablet by ORAL route once daily; 30 tablet. - Medication Reconciliation Form, Thank You Letter, Antibiotic Education, Prescription Opioid Use form. - Follow up: Private Physician; When: 7 - 10 days; Reason: Recheck today's complaints. - Problem is new. - Symptoms have improved. Signatures: Dispatcher [employer] [facility] Mg Roche MD MD rn Page, Corey, PA PA cp Gena Rosas RN RN ap3 Almita Austin RN RN ca1 Corrections: (The following items were deleted from the chart) 15:28 14:59 CORONAVIRUS+MR.LAB.BRZ ordered. [facility] 17:08 16:31 03/15/2021 16:31 Discharged to Home. Impression: Cough. Condition is Stable. ap3 Forms are Medication Reconciliation Form, Thank You Letter, Antibiotic Education, Prescription Opioid Use. Follow up: Private Physician; When: 7 - 10 days; Reason: Recheck today's complaints. Problem is new. Symptoms have improved. 03/16 14:34 03/15 15:29 Patient reports she has been seen by pcp for similar complaints and been cp prescribed cetrizine, Flonase NS, and an antibiotic with some improvement but cough continues. Patient does report history of acid reflux. cp
--- NOTE | 2021-03-15 16:31 | ER ---
Nurse's Notes [facility] Name: Valeria Witt Age: 70 yrs Sex: Female : 1950 Arrival Date: 03/15/2021 Time: 14:24 Bed 17 Private MD: Diagnosis: Cough Presentation: 03/15 14:55 Chief complaint: Patient states: cough x 1 month. Coronavirus screen: Client denies ca1 travel out of the [place] in the last 14 days. cough unrelated to allergies, Client presents with at least one sign or symptom that may indicate coronavirus-19. Standard/surgical mask placed on the client. Provider contacted for isolation considerations. Ebola Screen: Patient negative for fever greater than or equal to 101.5 degrees Fahrenheit, and additional compatible Ebola Virus Disease symptoms Patient denies exposure to infectious person. Patient denies travel to an Ebola-affected area in the 21 days before illness onset. No symptoms or risks identified at this time. Initial Sepsis Screen: Does the patient meet any 2 criteria? No. Patient's initial sepsis screen is negative. Does the patient have a suspected source of infection? No. Patient's initial sepsis screen is negative. Risk Assessment: Do you want to hurt yourself or someone else? Patient reports no desire to harm self or others. Onset of symptoms was March 15, 2021. 14:55 Method Of Arrival: Ambulatory ca1 14:55 Acuity: YAMILET 3 ca1 Historical: - Allergies: 14:58 No Known Allergies; ca1 - PMHx: 14:58 breast CA; Diabetes - IDDM; Hyperlipidemia; ca1 - PSHx: 14:58 Appendectomy; ca1 - Immunization history:: Client reports receiving the 2nd dose of the Covid vaccine, Client reports receiving the 1st dose of the Covid vaccine, Pneumococcal vaccine is not up to date, Flu vaccine is up to date. - Social history:: Smoking status: Patient denies any tobacco usage or history of. Screenin:03 Abuse screen: Denies threats or abuse. Nutritional screening: No deficits noted. zb Tuberculosis screening: No symptoms or risk factors identified. Fall Risk None identified. Assessment: 15:02 General: Appears in no apparent distress. comfortable, Behavior is calm, cooperative, zb appropriate for age. Pain: Denies pain. Neuro: Level of Consciousness is awake, alert, obeys commands, Oriented to person, place, time, situation, Full function Gait is steady. Cardiovascular: Capillary refill < 3 seconds. Respiratory: Reports cough that is dry, since X 1 month Airway is patent Respiratory effort is even, unlabored, Respiratory pattern is regular, symmetrical. GI: No signs and/or symptoms were reported involving the gastrointestinal system. : No signs and/or symptoms were reported regarding the genitourinary system. EENT: No signs and/or symptoms were reported regarding the EENT system. Derm: No signs and/or symptoms reported regarding the dermatologic system. Musculoskeletal: No signs and/or symptoms reported regarding the musculoskeletal system. Vital Signs: 14:58 BP 124 / 76; Pulse 78; Resp 16 S; Temp 98.3(TE); Pulse Ox 96% on R/A; Weight 72.57 kg ca1 (R); Height 5 ft. 1 in. (154.94 cm) (R); Pain 0/10; 14:58 Body Mass Index 30.23 (72.57 kg, 154.94 cm) ca1 ED Course: 14:24 Patient arrived in ED. rg4 14:56 Triage completed. ca1 14:58 Arm band placed on right wrist. ca1 15:00 Jefferson Conway PA is PHCP. cp 15:00 Mg Roche MD is Attending Physician. naren 15:02 Bhargavi Wagner RN is Primary Nurse. zb 15:04 Patient has correct armband on for positive identification. NIBP on. Door closed. Noise zb minimized. 15:35 XRAY Chest Pa And Lat (2 Views) In Process Unspecified. EDMS 17:07 No provider procedures requiring assistance completed. Patient did not have IV access ap3 during this emergency room visit. Administered Medications: No medications were administered Outcome: 16:31 Discharge ordered by . cp 17:07 Discharged to home ambulatory. ap3 17:07 Condition: good 17:07 Discharge instructions given to patient, Instructed on discharge instructions, follow up and referral plans. medication usage, Demonstrated understanding of instructions, follow-up care, medications, Prescriptions given X 1. 17:08 Patient left the ED. ap3 Signatures: Dispatcher [employer] EDKY Jefferson Conway PA PA cp Garcia, Rubi rg4 Gena Rosas RN RN ap3 Acob, Almita, RN RN ca1 Brown, Bhargavi, RN RN zb Corrections: (The following items were deleted from the chart) 15:28 14:59 CORONAVIRUS+MR.GEOVANNI.MAURILIOZ drawn and sent. ca1 EDMS
[2021-03-15 17:15] VITALS: BP 124/76; TEMP 98.3; O2SAT 96
== END 2021-03-15 17:08 | disposition home or self-care (01) ==
LOC: ER 14:22
DX: R05 Cough (principal); Z20.822 Contact with and (suspected) exposure to COVID-19; Z85.3 Personal history of malignant neoplasm of breast
CPT/HCPCS: 71046; U0003; 99283

== ENCOUNTER 2021-08-27 12:41 | Emergency (ER) | payer OTHER ==
--- NOTE | 2021-08-27 13:56 | RAD REPORT ---
EXAM DESCRIPTION: CT - CTHCSPWOC - 08/27/2021 1:29 pm CLINICAL HISTORY: Trauma, head and neck injury. PAIN COMPARISON: Thorax W/ Con dated 01/24/2021; Thorax W/ Con dated 11/29/2019No comparisons TECHNIQUE: Axial 5 mm thick images of the head were obtained. Axial 2 mm thick images of the cervical spine were obtained with sagittal and coronal reconstruction images generated and reviewed. All CT scans are performed using dose optimization technique as appropriate and may include automated exposure control or mA/KV adjustment according to patient size. FINDINGS: CT HEAD WITHOUT CONTRAST: No acute hemorrhage, hydrocephalus or extra-axial collection is identified.No areas of brain edema or midline shift. Ethmoid air cell thickening.The calvarium is intact. CT CERVICAL SPINE WITHOUT CONTRAST: No fracture or subluxation.No prevertebral soft tissues swelling is identified. Multilevel cervical s pondylosis with varying degrees of neural foraminal narrowing. IMPRESSION: No acute intracranial or cervical spine findings.
[2021-08-27] MEDS ORDERED: KETOROLAC 30 MG/ML INJ ONE (14:11)
--- NOTE | 2021-08-27 14:17 | ER ---
Nurse's Notes [facility] Name: Valeria Witt Age: 70 yrs Sex: Female : 1950 Arrival Date: 08/27/2021 Time: 12:42 Bed 20 Private MD: Diagnosis: Acute post-traumatic headache Presentation: 08/27 12:54 Chief complaint: Patient states: About 30 minutes ago pt was cleaning bathroom when vg1 slipped and fell onto back and states hit back of head. Denies LOC, NV, or blurred vision, does state headache, 07/01. Coronavirus screen: Vaccine status: Patient reports receiving the 2nd dose of the covid vaccine. Client denies travel out of the [place] in the last 14 days. Ebola Screen: Patient negative for fever greater than or equal to 101.5 degrees Fahrenheit, and additional compatible Ebola Virus Disease symptoms. Initial Sepsis Screen: Does the patient meet any 2 criteria? No. Patient's initial sepsis screen is negative. Does the patient have a suspected source of infection? No. Patient's initial sepsis screen is negative. Risk Assessment: Do you want to hurt yourself or someone else?. Onset of symptoms was August 27, 2021. 12:54 Method Of Arrival: Ambulatory vg1 12:54 Acuity: YAMILET 3 vg1 Triage Assessment: 12:56 General: Appears in no apparent distress. uncomfortable, Behavior is calm, cooperative. vg1 Pain: Complains of pain in head Pain currently is 8 out of 10 on a pain scale. Neuro: Level of Consciousness is awake, alert, obeys commands, Oriented to person, place, time, situation, Reports headache. Musculoskeletal: Circulation, motion, and sensation intact. Historical: - Allergies: 12:56 No Known Allergies; vg1 - Home Meds: 12:56 pravastatin oral [Active]; Metformin Oral [Active]; vg1 - PMHx: 12:56 breast CA; Diabetes - IDDM; Hyperlipidemia; vg1 - Immunization history:: Adult Immunizations up to date, Client reports receiving the 2nd dose of the Covid vaccine. - Social history:: Smoking status: Patient denies any tobacco usage or history of. Patient/guardian denies using alcohol, street drugs, The patient lives with family. - Family history:: not pertinent. Screenin:52 Abuse screen: Denies threats or abuse. Nutritional screening: No deficits noted. sl2 Tuberculosis screening: No symptoms or risk factors identified. Fall Risk Fall in past 12 months (25 points). No secondary diagnosis (0 pts). No IV (0 pts). Ambulatory Aid- None/Bed Rest/Nurse Assist (0 pts). Gait- Normal/Bed Rest/Wheelchair (0 pts) Mental Status- Oriented to own ability (0 pts). Total Rae Fall Scale indicates No Risk (0-24 pts). Assessment: 13:50 General: Appears comfortable, well groomed, well developed, Behavior is calm, sl2 cooperative, appropriate for age. 13:50 Respiratory: No deficits noted. Reports Airway is patent Trachea midline Respiratory sl2 effort is even, unlabored, Respiratory pattern is regular, symmetrical, Breath sounds are clear bilaterally. GI: No deficits noted. No signs and/or symptoms were reported involving the gastrointestinal system. : No deficits noted. No signs and/or symptoms were reported regarding the genitourinary system. EENT: No deficits noted. No signs and/or symptoms were reported regarding the EENT system. Derm: No deficits noted. No signs and/or symptoms reported regarding the dermatologic system. 13:52 Pain: Complains of pain in posterior head Pain does not radiate. Pain currently is 8 sl2 out of 10 on a pain scale. Quality of pain is described as aching, Pain began suddenly, 1 day ago. Is continuous, Alleviated by rest. 13:52 Neuro: Level of Consciousness is awake, alert, obeys commands, Oriented to person, sl2 place, time, situation, Appropriate for age [employer]estock [employer] Attendant are equal bilaterally Moves all extremities. Gait is steady, Speech is normal, Facial symmetry appears normal, Pupils are PERRLA, Intact Reports headache Denies weakness blurred vision dizziness, difficulty swallowing, paresthesias numbness photophobia diplopia. Cardiovascular: No deficits noted. Musculoskeletal: Reports pain in posterior head Denies. 14:40 Pain: Pain currently is 3 out of 10 on a pain scale. sl2 Vital Signs: 12:54 BP 134 / 85; Pulse 90; Resp 17; Temp 98.2; Pulse Ox 98% ; Height 5 ft. 1 in. (154.94 vg1 cm); Pain 8/10; 13:40 BP 141 / 72; Pulse 71; Resp 16; Pulse Ox 99% on R/A; mh5 14:00 BP 126 / 63; Pulse 71; Resp 18; Pulse Ox 99% on R/A; sl2 14:45 BP 105 / 69; Pulse 71; Resp 18; Temp 98.4(O); Pulse Ox 99% on R/A; sl2 ED Course: 12:42 Patient arrived in ED. ds1 12:56 Triage completed. vg1 12:56 Arm band placed on. vg1 13:04 Deidra Ng MD is Attending Physician. ma2 13:28 CT Head C Spine In Process Unspecified. EDMS 13:41 Patient has correct armband on for positive identification. Bed in low position. Call mh5 light in reach. Side rails up X2. Warm blanket given. Pulse ox on. NIBP on. 14:09 Tracy Kapoor, RN is Primary Nurse. sl2 14:54 No provider procedures requiring assistance completed. Patient did not have IV access sl2 during this emergency room visit. Administered Medications: 14:16 Drug: Ketorolac 60 mg Route: IM; Site: right ventrogluteal; sl2 14:40 Follow up: Response: No adverse reaction; Pain is decreased sl2 Outcome: 14:16 Discharge ordered by . vaEvelin 14:54 Discharged to home sl2 14:54 Discharged to home ambulatory. 14:54 Condition: stable 14:54 Discharge instructions given to patient, Instructed on discharge instructions, follow up and referral plans. no drinking with medication, medication usage, Demonstrated understanding of instructions, follow-up care, medications, Prescriptions given X 1. 15:01 Patient left the ED. sl2 Signatures: Dispatcher [employer] [facility] Yecenia Andrade dsAngelique Dasilva [facility] Deidra Ng MD MD ma2 Garcia, Victoria, [facility] RN 1 Tracy Kapoor, [facility] RN 2
--- NOTE | 2021-08-27 14:17 | EDPHYS ---
Physician Documentation [facility] Name: Valeria Witt Age: 70 yrs Sex: Female : 1950 Arrival Date: 08/27/2021 Time: 12:42 Bed 20 Private MD: ED Physician Deidra Ng HPI: 08/27 13:15 This 70 yrs old Female presents to ER via Ambulatory with complaints of Fall ma2 Injury. 13:15 Details of fall: The patient fell from an upright position. Onset: The symptoms/episode ma2 began/occurred suddenly, 1 hour(s) ago. Associated injuries: The patient sustained injury to the head. Severity of symptoms: At their worst the symptoms were moderate, in the emergency department the symptoms are unchanged. The patient has not experienced similar symptoms in the past. tripped and fell has headache no other injury. Historical: - Allergies: 12:56 No Known Allergies; vg1 - Home Meds: 12:56 pravastatin oral [Active]; Metformin Oral [Active]; vg1 - PMHx: 12:56 breast CA; Diabetes - IDDM; Hyperlipidemia; vg1 - Immunization history:: Adult Immunizations up to date, Client reports receiving the 2nd dose of the Covid vaccine. - Social history:: Smoking status: Patient denies any tobacco usage or history of. Patient/guardian denies using alcohol, street drugs, The patient lives with family. - Family history:: not pertinent. ROS: 13:15 Constitutional: Negative for fever, chills, and weight loss. ma2 13:15 All other systems are negative. Exam: 13:15 Constitutional: This is a well developed, well nourished patient who is awake, alert, ma2 and in no acute distress. Head/Face: Normocephalic, atraumatic. Eyes: Pupils equal round and reactive to light, extra-ocular motions intact. Lids and lashes normal. Conjunctiva and sclera are non-icteric and not injected. Cornea within normal limits. Periorbital areas with no swelling, redness, or edema. ENT: Nares patent. No nasal discharge, no septal abnormalities noted. Tympanic membranes are normal and external auditory canals are clear. Oropharynx with no redness, swelling, or masses, exudates, or evidence of obstruction, uvula midline. Mucous membranes moist. Neck: Trachea midline, no thyromegaly or masses palpated, and no cervical lymphadenopathy. Supple, full range of motion without nuchal rigidity, or vertebral point tenderness. No Meningismus. Chest/axilla: Normal chest wall appearance and motion. Nontender with no deformity. No lesions are appreciated. Cardiovascular: Regular rate and rhythm with a normal S1 and S2. No gallops, murmurs, or rubs. Normal PMI, no JVD. No pulse deficits. Respiratory: Lungs have equal breath sounds bilaterally, clear to auscultation and percussion. No rales, rhonchi or wheezes noted. No increased work of breathing, no retractions or nasal flaring. Abdomen/GI: Soft, non-tender, with normal bowel sounds. No distension or tympany. No guarding or rebound. No evidence of tenderness throughout. Skin: Warm, dry with normal turgor. Normal color with no rashes, no lesions, and no evidence of cellulitis. MS/ Extremity: Pulses equal, no cyanosis. Neurovascular intact. Full, normal range of motion. Neuro: Awake and alert, GCS 15, oriented to person, place, time, and situation. Cranial nerves II-XII grossly intact. Motor strength 5/5 in all extremities. Sensory grossly intact. Cerebellar exam normal. Normal gait. Vital Signs: 12:54 BP 134 / 85; Pulse 90; Resp 17; Temp 98.2; Pulse Ox 98% ; Height 5 ft. 1 in. (154.94 vg1 cm); Pain 8/10; 13:40 BP 141 / 72; Pulse 71; Resp 16; Pulse Ox 99% on R/A; mh5 14:00 BP 126 / 63; Pulse 71; Resp 18; Pulse Ox 99% on R/A; sl2 14:45 BP 105 / 69; Pulse 71; Resp 18; Temp 98.4(O); Pulse Ox 99% on R/A; sl2 MDM: 13:04 Patient medically screened. nv2 13:15 Differential diagnosis: closed head injury, contusion, sprain, strain. nv2 14:16 Data reviewed: vital signs, nurses notes. Counseling: I had a detailed discussion with ma2 the patient and/or guardian regarding: the historical points, exam findings, and any diagnostic results supporting the discharge/admit diagnosis, the presence of at least one elevated blood pressure reading (>120/80) during this emergency department visit, the need for outpatient follow up. Response to treatment: the patient's symptoms have markedly improved after treatment. 08/27 13:12 Order name: CT Head C Spine; Complete Time: 14:07 ma2 Administered Medications: 14:16 Drug: Ketorolac 60 mg Route: IM; Site: right ventrogluteal; sl2 14:40 Follow up: Response: No adverse reaction; Pain is decreased sl2 Disposition Summary: 08/27/21 14:16 Discharge Ordered Location: Home ma2 Condition: Stable ma2 Diagnosis - Acute post-traumatic headache ma2 Followup: ma2 - With: Private Physician - When: Tomorrow - Reason: If symptoms return, Continuance of care Discharge Instructions: - Discharge Summary Sheet ma2 - Head Injury, Adult, [id number] ma2 Forms: - Medication Reconciliation Form ma2 - Thank You Letter ma2 - Antibiotic Education ma2 - Prescription Opioid Use ma2 Prescriptions: - Diclofenac Sodium 75 mg Oral Tablet Sustained Release - take 1 tablet by ORAL route 2 times per day; 30 tablet; Refills: 0, Product ma2 Selection Permitted Signatures: Dispatcher [employer] EDDeidra Reich MD MD ma2 Ekta Taveras RN RN vg1 Tracy Kapoor RN RN sl2
[2021-08-27 15:11] VITALS: TEMP 98.2
[2021-08-27 15:12] VITALS: BP 141/72; O2SAT 99
--- OUTSIDE RECORDS SUMMARY | 2021-09-03 14:24 | XMS REPORT | Continuity of Care Document ---
:1950 Author Organization [facility] t Address [address] [place] [address] Care Team Providers Name Role Phone [phone] Primary Care Physician Unavailable GIORGIO Attending Clinician Unavailable Giorgio NEVAREZ Attending Clinician Miky IVEY Attending Clinician Unavailable Apollo IVEY Attending Clinician Unavailable Jorge PAVON R Attending Clinician Giana PATEL Attending Clinician Unavailable Michael PAVON L Attending Clinician Vera NEVAREZ Attending Clinician Minnie NEVAREZ Attending Clinician Russ Attending Clinician Unavailable Macarena PAVON Attending Clinician Payers Payer Name Policy Type Policy Number Effective Date Expiration Date Sepideh GONZALEZ [facility] [id number] 2019 MEDICARE ADVANTAGE 00:00:00 Problems Condition Condition Condition Status Onset Resolution Last Treating Co mments Source Name Details Category Date Date Treatment Clinician Date 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 Disease Active current current 07-18 Anderso use [...] 00:00: n 00 Menopausal Menopausal Disease Active D flushing flushing 04-27 Parmjit o 00:00: n 00 Deficiency Deficiency Disease Active D of vitamin of vitamin 04-27 An [...] Problem Active [facility] - [facility] ent Clinics Prediabete Prediabete Problem [facility] Ulcer Ulcer Problem [facility] Diabetes Diabetes Problem Active [facility] Hyperlipid Hyperlipid Problem Active [facility] em[facility] - [facility] ent Clinics History of History of Problem Active C [facility] breast breast [facility] - cancer cancer [facility] ent [facility] Obesity Obesity Problem Active [facility] (BMI (BMI [facility] - 30-39.9) 30-39.9) [facility]ics Cancer Cancer Problem [facility] 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[facility] ed type 2 ed type 2 Luke s - diabetes diabetes Memori a mellitus mellitus l with with [facility] hyperglyce hyperglyce en t [facility] Elevated Elevated Problem Active [facility] T[facility] TSH [facility] Allergies, Adverse Reactions, Alerts This [...] Start Date Stop Date Quantity Comments Source Exposure to Not sure MD Leach SARS-CoV-2 (event) Alcohol intake 2020-08-11 2020-08-11 Current MD Iqra thornton 00:00:00 00:00:00 non-drinker of alcohol (finding) Tobacco use and 2017-02-23 2017-02-23 Smokeless tobacco MD Leach exposure 00:00:00 00:00:00 non-user Sex Ass[birth year] At [birth year] F MD Parnell on 00:00:00 00:00:00 Smoking Status Start Date Stop Date Source Never smoked tobacco MD Leach Medications Ordered Filled Start Stop Current Ordering Indication Dosage Frequency Signature Comments Components Source Medication Medication Date Date Medication? Clinician (SIG) Name Name anastrozole Yes Personal Take 1 (ARIMIDEX) 6-16 history of tablet by Andmckenzie 1 mg tablet 00:00: malignant mouth once n 00 neoplasm of daily breast calcium 2019-10 Yes Take by carbonate/v 1-06 mouth. Parmjit o itamin D3 08:44: n (CALCIUM+D 33 ORAL) pravastatin 2019-10 Yes 40mg Take 40 mg (PRAVACHOL) 1-06 by mouth Luther rso 40 mg 08:42: daily. n tablet 58 denosumab 2019-10 Yes 60mg Inject 60 (PROLIA) 60 1-06 mg under Luther rso mg/mL syrg 08:42: the skin n injection 58 every 6 (six) months. prednisoLON 2019-10 Yes INSTILL 1 M D E acetate [...] ent FORMULARY Clinics TO INSURANCE) Glucose Glucose 2019-0 Yes Kailey as [facility] testing testing 4-03 Millender directed [facility] - strips strips 00:00: (dispense Tamir malinda 00 testing l strips [facility] formulary ent to Clinics insurance) Metformin Metformin Yes Kailey [address] [address] HCl HCl 4-03 Millender with a [facility] - 00:00: meal [facility]oria 00 l [facility] Lancets Lancets Yes Kailey as [facility] 4-03 Millender directed [facility] - 00:00: (dispense [facility] 00 lancets l formulary [facility] to ent insurance) Clinics metFORMIN Yes TAKE 1 MD (GLUCOPHAGE 4-03 TABLET BY And erso ) 500 mg 00:00: MOUTH n tablet 00 TWICE DAILY WITH A MEAL FOR DIABETES FOR 30 DAYS FREESTYLE Yes USE MD LITE METER 4-03 DIRECTED Abdullahi so kit 00:00: n 00 anastrozole Personal 1mg Take 1 MD (ARIMIDEX) 12-31 06-16 history of tablet (1 Anderso 1 mg tablet 00:00: 00:00 malignant mg) by n 00 :00 neoplasm of mouth breast daily. Ranitidine Ranitidine Yes Kailey [address] [address] HCl HCl Millender [facility] Stool Stool Yes Kailey [address] [address] Softener Softener Millender as needed [facility] Pravastatin Pravastatin Yes Kailey [address] [address] Sodium Sodium Millender [facility] Prolia Prolia Yes Kailey as [facility] Millender directed [facility] Citracal Citracal Yes Kailey as [facility] Plus Plus Millender directed [facility] Anastrozole Anastrozole Kailey [address] [facility] 05-01 Millender [facility] - 00:00 [facility] :00 [facility] Vital Signs Vital Name Observation Time Observation Value Comments Source Systolic blood pressure 2021-08-26 21:00:00 117 mm[Hg] MD Leach Diastolic blood pressure 2021-08-26 21:00:00 75 mm[Hg] MD Leach Heart rate 2021-08-26 21:00:00 76 /min MD Fernando son Body temperature 2021-08-26 21:00:00 36.56 Marly MD Williams parker Respiratory rate 2021-08-26 21:00:00 19 /min MD Williams parker Body weight 2021-08-26 21:00:00 71.8 kg MD Abdullahi bailey BMI 2021-08-26 21:00:00 29.91 kg/m2 MD Abdullahi bailey Oxygen saturation in 2021-08-26 21:00:00 97 /min MD Leach Arterial blood by Pulse oximetry Procedures Procedure Date / Time Performed Performing Clinician [facility] e ALBUMIN LEVEL 2021-08-16 12:33:00 Priscilla Patel MD BLOOD UREA NITROGEN 2021-08-16 12:33:00 Priscilla Patel MD son CALCIUM LEVEL TOTAL 2021-08-16 12:33:00 Priscilla Patel MD son SERUM CREATININE 2021-08-16 12:33:00 Priscilla Patel MD MAGNESIUM LEVEL 2021-08-16 12:33:00 Priscilla Patel MD PHOSPHORUS LEVEL 2021-08-16 12:33:00 Priscilla Patel MD FREE THYROXINE 2021-08-16 12:33:00 Priscilla Patel MD THYROID STIMULATING HORMONE 2021-08-16 12:33:00 Priscilla Patel MD VITAMIN D 25 HYDROXY LEVEL 2021-08-16 12:33:00 Priscilla Patel CTX BETA CROSSLAPS 2021-08-16 12:33:00 Priscilla Patel MD on SERUM CREATININE 2021-08-16 12:33:00 Priscilla Patel MD .GLOMERULAR FILTRATION RATE 2021-08-16 12:33:00 Priscilla Patel MD CALCIUM LEVEL TOTAL 2021-02-09 14:52:00 Kyle Gamez MD rson PHOSPHORUS LEVEL 2021-02-09 14:52:00 Kyle Gamez MD n THYROID STIMULATING HORMONE 2020-11-02 23:40:00 Kyle Gamez MD FREE THYROXINE 2020-11-02 23:40:00 Kyle Gamez MD Plan of Care Planned Activity Planned Date Details Comments Source Future Scheduled Test 2021-02-05 00:00:00 COVID-19 Vaccination (3 MD Leach - Pfizer risk 4-dose series) [code = COVID-19 Vaccination (3 - Pfizer risk 4-dose series)] Future Appointment 2022-08-09 14:00:00 Kyle Gamez MD, MD Leach [address] [place] [address] Encounters Start End Encounter Admission Attending Care Care Encounter Source Date/Time Date/Time Type Type Clinicians Facility Department ID 2021-08-26 2021-08-26 Outpatient JEANNETTE BARNEY MDA MDA [id number] 16:30:53 16:58:19 CARLOTA Fernando so n 2021-08-16 2021-08-16 Outpatient JEANNETTE PATEL MDA MDA [id number] 07:00:00 23:59:00 PRISCILLA thornton 2020-01-27 2020-01-27 [facility] [id number] [facility] [address] 08:25:00 08:25:00 [facility] Outpati ent Clinics 2020-01-24 2020-01-24 [facility] [id number] [facility] 22:02:00 22:02:[address] [facility] Outpati ent Clinics 2020-01-23 2020-01-23 [facility] [id number] 11:49:00 11:49:[address] [facility] Medicine Outpati ent Clinics 2020-01-23 2020-01-23 [facility] [id number] 08:45:00 08:45:00 [facility] Outpati ent Clinics 2020-01-21 2020-01-21 [facility] [id number] 14:00:00 14:00:00 [facility] Results Test Description Test Time Test Comments Results Result Comments Source CTX Beta Crosslaps 2021-08-16 13:46:00 Test Item Value Reference Range Interpretation Comme nts CTX (test code = 568 pg/mL Males:<30 years: 5250) not establish ed30-50 years: 16 - 584 pg/mL51-7 0 years: 10 - 704 pg/mL>70 years : 10 - 854 pg/mL Females:Premeno pausal: 25 - 573 pg/mLPostmenopa usal: 104 - 1008 pg/mL SHERRI (test code = SHERRI) Schedule Bone Density Scan And Fasting [facility] At [facility] 1 To 7 Days Before Follow Up. MD LeachVitamin D [id number] 13:45:59 Test Item Value Reference Range Interpretation Comments Vitamin D 25 OH 32 ng/mL 30-100 Reference Ra nge: (test code = Deficiency: 8018) <10 ng/mLInsufficie ncy: 10-29 ng/mLSufficienc y: 30-100 ng/mLPotential toxicity: >10 0 ng/mL SHERRI (test code = Schedule Bone SHERRI) Density Scan [facility]asting [facility] 1 To 7 Days Before Follow Up. MD LeachFree [id number] 13:19:27 Test Item Value Reference Range Interpretation Comments T4 Free (test 0.96 ng/dL 0.93-1.70 Testing Perfor [facility] at code = 7502) [facility] [address], [place] [address] SHERRI (test code Schedule Bone = SHERRI) Density Scan [facility] Fasting [facility] 1 To 7 Days Before Follow Up. MD [id number] 13:19:26 Test Item Value Reference Range Interpretation Comments TSH (test code 3.50 See_Comment Note: New = 7578) Methodology and Reference Range change effectiv e 02/07/2018 at 14 00 Testing Perform ed at [facility], [address], [address], [place] [address] [Automat ed message] The sy stem which generated this result transmit marshal reference range : 0.27 - 4.20 mcunit/m L. The reference range was not used to int erpret this result as normal/abnormal . SHERRI (test code Schedule Bone = SHERRI) Density Scan [facility]asting [facility] 1 To 7 Days Before Follow Up. MD LeachGlomerular Filtration [id number] 13:06:53 Test Item Value Reference Range Interpretation Comments eGFR-AA (test 109 See_Comment Normal eGFR >= 60 code = 8062) mL/min/1.73 m2 Note: The eGFR is alexy culated using the CKD-E PI equation. The e GFR declines with a ge. eGFR <60 mL/min/1.73 m2 is considered as "decreased". Th is equation should only be used for patien ts 18 and older. Acco rding to the National dney Foundation's dney Disease Outcome Quality Initiative (KDO QI) classification and 2012 Kidney Disease Improving Globa l Outcomes (KDIGO ) Clinical Practi ce Guideline, the stage of CKD should be categorized bas ed on estimated GFR. Stage Description GFR mL/min/1.73 m21 Normal or high GFR >=902 Mildly de creased GFR 60-893a Mildly to moderately decr eased GFR 45-593b Moderately to s everely decreased GFR 30-444 Severely decreased GFR 15-295 Kidney f ailure <15 Testin g Performed at [facility] Lab Vegetable Grader [facility], [address], [place] [address] [Automat ed message] The sy stem which generated this result transmit marshal reference range : >=60 mL/min/1.73 sq. m. The reference range was not used to interpr et this result as normal/abnormal . eGFR-MIRI (test 94 See_Comment Normal eGFR > = 60 code = 8063) mL/min/1.73 m2 Note: The eGFR is alexy culated using the CKD-E PI equation. The e GFR declines with a ge. eGFR <60 mL/min/1.73 m2 is considered as "decreased". Th is equation should only be used for patien ts 18 and older. Acco rding to the National dney Foundation's dney Disease Outcome Quality Initiative (KDO QI) classification and 2012 Kidney Disease Improving Globa l Outcomes (KDIGO ) Clinical Practi ce Guideline, the stage of CKD should be categorized bas ed on estimated GFR. Stage Description GFR mL/min/1.73 m21 Normal or high GFR >=902 Mildly de creased GFR 60-893a Mildly to moderately decr eased GFR 45-593b Moderately to s everely decreased GFR 30-444 Severely decreased GFR 15-295 Kidney f ailure <15 Testin g Performed at [facility] Lab Vegetable [facility], [address], [place] [address] [Automat ed message] The sy stem which generated this result transmit marshal reference range : >=60 mL/min/1.73 sq. m. The reference range was not used to interpr et this result as normal/abnormal . SHERRI (test code Schedule Bone = SHERRI) Density Scan [facility] Fasting [facility] 1 To 7 Days Before Follow Up. MD LeachPhosphorus [id number] 13:06:52 Test Item Value Reference Range Interpretation Comments Phosphorus (test 4.1 mg/dL 2.5-4.5 Testing Per formed code = 6817) at [facility] Lab Vegetable [facility], [address], [address], [place] [address] SHERRI (test code = Schedule Bone SHERRI) Density Scan [facility] Fasting [facility] At [facility] 1 To 7 Days Before Follow Up. MD LeachMagnesium [id number] 13:06:51 Test Item Value Reference Range Interpretation Comments Magnesium (test 2.3 mg/dL 1.6-2.6 Testing Perf ormed code = 6359) at [facility] Lab Vegetable [facility], [address], [place], [place] [address] SHERRI (test code = Schedule Bone SHERRI) Density Scan [facility]asting [facility] 1 To 7 Days Before Follow Up. MD LeachCalcium [id number] 13:06:50 Test Item Value Reference Range Interpretation Comments Calcium Lvl (test 9.7 mg/dL 8.4-10.2 Testing Pe rformed code = 5258) at [facility] Lab [facility] Bld[facility], [address], [place], [place] [address] SHERRI (test code = Schedule Bone SHERRI) Density Scan [facility] Fasting [facility] At [facility] 1 To 7 Days Before Follow Up. MD LeachAlbumin [id number] 13:06:49 Test Item Value Reference Range Interpretation Comments Albumin Lvl (test 4.2 See_Comment Testing Pe rformed at code = 4763) [facility] Lab Ambulat ory [facility], [address], [place] [address] [Automate d message] The sy stem which generated this result transmit marshal reference range : 3.5 - 5.2 gm/dL. Th e reference range was not used to interpret this result as normal/abnormal . SHERRI (test code = Schedule Bone SHERRI) Density Scan [facility]asting [facility] 1 To 7 Days Before Follow Up. MD Leach.Serum [id number] 13:06:48 Test Item Value Reference Range Interpretation Comments Creatinine (test 0.59 mg/dL 0.51-0.95 Testing Per formed code = 5399) at [facility] Lab Vegetable [facility], [address], [place] [address] SHERRI (test code = Schedule Bone SHERRI) Density Scan And Fasting [facility] At [facility] 1 To 7 Days Before Follow Up. MD [id number] 13:06:47 Test Item Value Reference Range Interpretation Comments BUN (test code 16 mg/dL 6-23 Testing Perfo rmed at = 5055) [facility] Lab Ambulat or Care [facility], [address], [place] [address] SHERRI (test code Schedule Bone = SHERRI) Density Scan And Fasting [facility] 1 To 7 Days Before Follow Up. MD Leach
--- OUTSIDE RECORDS SUMMARY | 2021-09-03 14:24 | XMS REPORT | Clinical Summary ---
:1950 Author Organization [facility] MD Fernando [facility] Address [address] [place] [address] Care Team Providers Name Role Phone Mindi Raygoza MD Unavailable MD Giorgio Primary Care Provider Mindi Raygoza MD Unavailable Allergies No known active allergies Medications Medication Sig Dispensed Refills Start Date End Date Status pravastatin Take 40 mg by 0 Acti ve (PRAVACHOL) 40 mg mouth daily. tablet denosumab (PROLIA) Inject 60 mg 0 Active 60 mg/mL syrg under the skin injection every 6 (six) months. metFORMIN TAKE 1 TABLET BY 0 01/23/2020 Ac tive (GLUCOPHAGE) 500 MOUTH TWICE DAILY mg tablet WITH A MEAL FOR DIABETES FOR 30 DAYS FREESTYLE LITE USE DIRECTED 0 01/23/2020 Active METER kit FREESTYLE 28 gauge USE 1 TO CHECK 0 01/25/2020 Active lancets GLUCOSE ONCE DAILY prednisoLONE INSTILL 1 DROP 0 07/23/2020 A ctive acetate (PRED INTO EACH EYE FORTE) 1% TWICE DAILY ophthalmic NEEDED FOR OCULAR suspension IFLAMMATION calcium Take by mouth. 0 Activ e carbonate/vitamin D3 (CALCIUM+D ORAL) anastrozole Take 1 tablet by 90 tablet 0 04/06/2021 Active (ARIMIDEX) 1 mg mouth once daily tabletIndications: Personal history of malignant neoplasm of breast anastrozole Take 1 tablet (1 90 tablet 3 12/31/2018 Discontinued (ARIMIDEX) 1 mg mg) by mouth 1 tabletIndications: daily. 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 Cancer Staging: Clinical stage from 2016: Stage IA (T1c, N0, M0) - Signed by Haroldo Bocanegra MD on 02/23/2017 Pathologic stage from 04/12/2017: Stage I A (T1b, N0, cM0) - Signed by Haroldo Bocanegra MD on 04/27/2017 Cervical dysplasia Personal history of therapeutic radiation exposure Encounters Date Type Specialty Care Team Description 08/26/2021 Clinical Support Endocrinology Calvin Alvares is MD Carl (Primary Dx) Anaid Bolaños RN 08/26/2021 Travel 08/25/2021 Telephone Endocrinology Elvie Bustillos RN 08/24/2021 Telephone Endocrinology Priscilla Patel FNP 08/17/2021 Documentation Endocrinology Priscilla Patel FNP 08/17/2021 Orders Only Endocrinology Priscilla Patel Osteoporosis (Primary Dx); R, INTERVENTION MANAGER Deficiency of v itamin D3 08/16/2021 Hospital Encounter Lab Priscilla Patel Osteopor osis; R, INTERVENTION MANAGER Abnormal thyroi d hormone; Deficiency of v itamin D3 08/16/2021 Travel 04/06/2021 Refill Breast Medical Michael, Personal hist ory of Oncology LIBRADO Curtis malignant neop lasm of breast 02/09/2021 Infusion Infusion Services Calvin Gamez is MD Kyle (Primary Dx) 02/09/2021 Travel 12/30/2020 Orders Only Infectious Diseases Minnie, SARS-CoV -2 MD Faisal vaccination 11/12/2020 Telephone Pain Medicine Kandy Solano 11/10/2020 Telephone Pain Medicine Priscilla Patel FNP 11/02/2020 Hospital Encounter Lab Vera, Abnormal result of MD Kyle thyroid functio n study 08/30/2020 Telephone Endocrinology Gloria Fiore, INTERVENTION MANAGER after 08/30/2020 Immunizations Name Administration Dates Next Due Surgical History Surgery Date Site/Laterality Comments APPENDECTOMY 11/25/2011 COLONOSCOPY 10/22/2017 - 10/21/2018 UPPER GASTROINTESTINAL 05/30/2019 ENDOSCOPY BUNIONECTOMY 10/22/2000 - Bilateral 10/21/2001 SC MASTECTOMY, PARTIAL 04/12/2017 Breast/Left Procedure : SEED LOC, SEGMENTAL MASTEC ANAIS - ; Surgeon: Ingrid Alvares MD; L ocation: [facility]; Servic e: BREAST SC INTRAOPERATIVE SENTINEL 04/12/2017 Axilla/Left Proce dure: INTRAOPERATIVE LYMPH NODE ID W DYE LYMPHATIC MA PPING; INJECTION Surgeon: Ingrid Alvares MD; L ocation: [facility]; Servic e: BREAST SC BX/REMV,LYMPH NODE,DEEP 04/12/2017 Axilla/Left Proce dure: SENTINEL NODE AXILL BIOPSY - AXILLA; Surgeon: Ingrid Alvares MD; L ocation: [facility]; Servic e: BREAST EXCISION OF CERVIX USING 1980, 05/26/16 LOOP ELECTRODE Medical History Medical History Date Comments Hyperlipidemia 11/15/2015 Taking medication -P revastatin 40mlg Nodule in breast 02/08/2017 Fatty liver Ulcer Diverticulitis Polyp Infiltrating duct carcinoma of upper 02/23/2017 inner quadrant of left female breast Osteoporosis 05/03/2017 Cervical dysplasia Personal history of therapeutic radiation exposure Personal history of peptic ulcer disease 06/07/2017 Broken tooth without complication 06/07/2017 Cervical intraepithelial neoplasia grade 1 Family History Medical History Relation Name Comments -Gastrointestinal (Esophagus, Liver, Maternal Grandmother Liver Bile Duct, Stomach, Pancreas, Colon, Rectum, Anus -Gastrointestinal (Esophagus, Liver, Sister Colon Bile Duct, Stomach, Pancreas, Colon, Rectum, Anus Other Neg Hx parental hip fra cture Relation Name Status Comments Maternal Grandmother Sister Alive Social History Tobacco Use Types Packs/Day Years Used Date Never Smoker Smokeless Tobacco: Never Used Alcohol Use Standard Drinks/Week Comments No 0 (1 standard drink = 0.6 oz pure alcoho l) Sex Assigned at Date Recorded Female 08/26/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 Obstetrics History Para Term AB IAB SAB Ectopic Multiple Living Live Births 3 3 3 0 0 3 Date Outcome GA Total Labor/2nd/3rd Weight Sex Delivery Anes PTL Steph A 1 A5 Name Clin Labor Term Term Term Comments Menarche 14 Parity 19 Breast feed none OCP none Menopause 40 natural HRT few days Last Filed Vital Signs Vital Sign Reading Time Taken Comments Blood Pressure 117/75 08/26/2021 4:00 PM CDT Pulse 76 08/26/2021 4:00 PM CDT Temperature 36.6 C (97.8 F) 08/26/2021 4:00 PM CDT Respiratory Rate 19 08/26/2021 4:00 PM CDT Oxygen Saturation 97% 08/26/2021 4:00 PM CDT Inhaled Oxygen Concentration - - Weight 71.8 kg (158 lb 4.6 oz) 08/26/2021 4:00 PM CDT Height - - Body Mass Index 29.91 08/10/2020 8:43 AM CDT Plan of Treatment Date Type Specialty Care Team Description 02/09/2022 Appointment Lab Priscilla Patel FNP [address] [place] [address] 7[address] 02/09/2022 Ancillary Procedure Radiology Priscilla Patel FNP [address] [place] [address] 7703 02/09/2022 Office Visit Endocrinology Estefanía Martínez MD [address] [place] [address] 7703 02/14/2022 Lab Lab Kyle Gamez MD [address] [place] [address] 7703 02/14/2022 Infusion Infusion Services Kyle Gamez MD [address] [place] [address] 7703 08/09/2022 Hospital Encounter Infusion Services Kyle Gamez, Canceled (Physician Request) [address] [place] [address] 7703 08/15/2022 Infusion Infusion Services Kyle Gamez MD [address] [place] [address] 7703 02/13/2023 Infusion Infusion Services Kyle Gamez MD [address] [place] [address] 7703 Health Maintenance Due Date Last Done Comments COVID-19 Vaccination (3 - Pfizer risk 02/05/2021 01/08/2021 , 12/18/2020 4-dose series) Procedures Procedure Name Priority Date/Time Associated Diagnosis Comme nts .GLOMERULAR Routine 08/16/2021 7:33 Osteoporosis Results for this FILTRATION RATE AM CDT procedure ar e in the results section. SERUM CREATININE Routine 08/16/2021 7:33 Osteoporosis Results for this AM CDT procedure are i n the results section. CTX BETA CROSSLAPS Routine 08/16/2021 7:33 Osteoporosis Resul ts for this AM CDT procedure are i n the results section. VITAMIN D 25 HYDROXY Routine 08/16/2021 7:33 Osteoporos is Results for this LEVEL AM CDT Deficiency of vitamin proced ure are in D3 the results section. THYROID STIMULATING Routine 08/16/2021 7:33 Osteoporosi s Results for this HORMONE AM CDT Abnormal thyroid procedure a re in hormone the results section. FREE THYROXINE Routine 08/16/2021 7:33 Osteoporosis Results for this AM CDT Abnormal thyroid procedure a re in hormone the results section. PHOSPHORUS LEVEL Routine 08/16/2021 7:33 Osteoporosis Results for this AM CDT procedure are i n the results section. MAGNESIUM LEVEL Routine 08/16/2021 7:33 Osteoporosis Results for this AM CDT procedure are i n the results section. SERUM CREATININE Routine 08/16/2021 7:33 Osteoporosis AM CDT CALCIUM LEVEL TOTAL Routine 08/16/2021 7:33 Osteoporosis Resu lts for this AM CDT procedure are i n the results section. BLOOD UREA NITROGEN Routine 08/16/2021 7:33 Osteoporosis Resu lts for this AM CDT procedure are i n the results section. ALBUMIN LEVEL Routine 08/16/2021 7:33 Osteoporosis Results fo r this AM CDT procedure are i n the results section. PHOSPHORUS LEVEL Routine 02/09/2021 9:52 Osteoporosis Results for this AM CDT procedure are i n the results section. CALCIUM LEVEL TOTAL Routine 02/09/2021 9:52 Osteoporosis Resu lts for this AM CDT procedure are i n the results section. FREE THYROXINE Routine 11/02/2020 5:40 Abnormal result of Res ults for this PM RN ONCOLOGY thyroid function procedure a re in study the results section. THYROID STIMULATING Routine 11/02/2020 5:40 Abnormal result o f Results for this HORMONE PM RN ONCOLOGY thyroid function procedure a re in study the results section. after 08/30/2020 Results .Serum Creatinine (08/16/2021 7:33 AM CDT) Pathologist Sig Upplication Creatinine 0.59Comment: Testing 0.51 - 0.95 mg/dL [facility] Performed at [facility] Lab Primary Care Md [facility], [address] [place] [address], [address], [place] [address] Specimen Blood Narrative [facility] - 08/16/2021 8:06 AM CDT Schedule Bone Density Scan And Fasting L abs At [facility] 1 To 7 Days Before Follow Up. Performing Organization Address City/State/ZIP Code Phon e Number [address] [place] [address] [address] Glomerular Filtration Rate (08/16/2021 7:33 AM CDT) Pathologist Sig nature eGFR-AA 109 >=60 mL/min/1.73 [facility] Comment: sq. m Normal eGFR >= 60 mL/min/1.73 m2 Note: The eGFR is calculated using the CKD-EPI equation. The eGFR declines with age. eGFR <60 mL/min/1.73 m2 is considered as "decreased". This equation should only be used for patients 18 and older. According to the National Ki dney Foundation's Kidney Disease Outcome Quality Initiative (KDOQI) classification and 2012 Kidney Disease Improving Global Outcomes (KDIGO) Clinical Practice Guideline, the stage of CKD should be categorized based on estimated GFR. Stage Description GFR mL/min/1.73 m2 1 Normal or high GFR >=90 2 Mildly decreased GFR 60-89 3a Mildly to moderately decreased GFR 45-59 3b Moderately to severely decreased GFR 30-44 4 Severely decreased GFR 15-29 5 Kidney failure <15 Testing Performed at [facility] Lab Primary Care Md [facility], [address], [address], [place] [address] eGFR-MIRI 94 >=60 mL/min/1.73 [facility] Comment: sq. m Normal eGFR >= 60 mL/min/1.73 m2 Note: The eGFR is calculated using the CKD-EPI equation. The eGFR declines with age. eGFR <60 mL/min/1.73 m2 is considered as "decreased". This equation should only be used for patients 18 and older. According to the National dney Foundation's Kidney Disease Outcome Quality Initiative (KDOQI) classification and 2012 Kidney Disease Improving Global Outcomes (KDIGO) Clinical Practice Guideline, the stage of CKD should be categorized based on estimated GFR. Stage Description GFR mL/min/1.73 m2 1 Normal or high GFR >=90 2 Mildly decreased GFR 60-89 3a Mildly to moderately decreased GFR 45-59 3b Moderately to severely decreased GFR 30-44 4 Severely decreased GFR 15-29 5 Kidney failure <15 Testing Performed at [facility] Lab Primary Care Md [facility], [address], [address], [place] [address] Specimen Blood Narrative [facility] - 08/16/2021 8:06 AM CDT Schedule Bone Density Scan And Fasting L abs At [facility] 1 To 7 Days Before Follow Up. Performing Organization Address City/State/ZIP Code Phon e Number [facility] [address] [place] [address] [address] CTX Beta Crosslaps (08/16/2021 7:33 AM CDT) Pathologist Sig mikey CTX 568 pg/mL [place] [facility] Comment: [facility] Males: <30 years: not established 30-50 years: 16 - 584 pg/mL 51-70 years: 10 - 704 pg/mL >70 years: 10 - 854 pg/mL Females: Premenopausal: 25 - 573 pg/mL Postmenopausal: 104 - 1008 pg/mL Specimen Blood Narrative [facility] - 8:46 AM CDT Schedule Bone Density Scan And Fasting L abs At [facility] 1 To 7 Days Before Follow Up. Performing Organization Address City/[facility]/ZIP Code Phon e Number [facility] CANCER Unless otherwise noted, [address] all lab tests performed by: Division of Pathology and Laboratory Medicine [address] [place] [address] Vitamin D 25OH (08/16/2021 7:33 AM CDT) Vitamin D 25 OH 32 30 - 100 ng/mL [facility] Comment: CANCER CENTER Reference Range: Deficiency: <10 ng/mL Insufficiency: 10-29 ng/mL Sufficiency: 30-100 ng/mL Potential toxicity: >100 ng/mL Specimen Blood Narrative [facility] - 8:45 AM CDT Schedule Bone Density Scan And Fasting L abs At [facility] 1 To 7 Days Before Follow Up. Performing Organization Address City/[facility] Phon e Number [facility] CANCER Unless otherwise noted, [address] all lab tests performed by: Division of Pathology and Laboratory Medicine [facility] BUN (08/16/2021 7:33 AM CDT) Pathologist Sig mikey BUN 16Comment: Testing 6 - 23 mg/dL [facility] Performed at [facility] Primary Care Md Bldg, [address] [place] [address], [address], [place] [address] Specimen Blood Narrative [facility] - 08/16/2021 8:06 AM CDT Schedule Bone Density Scan And Fasting L abs At [facility] 1 To 7 Days Before Follow Up. Performing Organization Address City/State/ZIP Code Phon e Number [facility] [address] [place] [address]. [place] [address] [address] TSH (08/16/2021 7:33 AM CDT)Only the most recent of2 resultswithin the time period is included. Pathologist Sig nature TSH 3.50 0.27 - 4.20 [facility] Comment: mcunit/mL Note: New Methodology and Reference Ra nge change effective 02/07/2018 at 1400 Testing Performed at [facility] Lab Primary Care Md [facility], [address], [address], [place] [address] Specimen Blood Narrative [facility] - 08/16/2021 8:19 AM CDT Schedule Bone Density Scan And Fasting L abs At [facility] 1 To 7 Days Before Follow Up. Performing Organization Address [facility]/ZIP Code Phon e Number [facility] [address] [place] [address] [address] Free T4 (08/16/2021 7:33 AM CDT)Only the most recent of2 resultswithin the time period is included. Pathologist Sig nature T4 Free 0.96Comment: Testing 0.93 - 1.70 ng/dL [facility] Performed at [facility] Lab Primary Care Md Bldg, [address], [address], [place] [address] Specimen Blood [facility] - 08/16/2021 8:19 AM CDT Schedule Bone Density Scan And Fasting L abs At [facility] 1 To 7 Days Before Follow Up. Performing Organization Address [facility] Phon e Number [facility] [address] [place] [address] [address] Phosphorus Level (08/16/2021 7:33 AM CDT)Only the most recent of2 resultswithin the time period is included. Pathologist Sig nature Phosphorus 4.1Comment: Testing 2.5 - 4.5 mg/dL [facility] Performed at [facility] Lab Primary Care Md [facility], [address], [address], [place] [address] Specimen Blood Narrative [facility] - 08/16/2021 8:06 AM CDT Schedule Bone Density Scan And Fasting L abs At [facility] 1 To 7 Days Before Follow Up. Performing Organization Address [facility]/ZIP Code Phon e Number [facility] [address] [facility] [place] [address] [address] Magnesium Level (08/16/2021 7:33 AM CDT) Pathologist Sig nature Magnesium 2.3Comment: Testing 1.6 - 2.6 mg/dL [facility] Performed at [facility] Lab Primary Care Md [facility], [address] [facility], [address], [place] [address] Specimen Blood Narrative [facility] - 08/16/2021 8:06 AM CDT Schedule Bone Density Scan And Fasting L abs At [facility] 1 To 7 Days Before Follow Up. Performing Organization Address City/State/ZIP Code Phon e Number [facility] [address] [place] [address] [address] Calcium Level (08/16/2021 7:33 AM CDT)Only the most recent of2 resultswithin the time period is included. Pathologist Sig nature Calcium Lvl 9.7Comment: Testing 8.4 - 10.2 mg/dL [facility] Performed at [facility] Lab Primary Care Md [facility], [address], [address], [place] [address] Specimen Blood Narrative [facility] - 08/16/2021 8:06 AM CDT Schedule Bone Density Scan And Fasting L abs At [facility] 1 To 7 Days Before Follow Up. Performing Organization Address City/[facility] Code Phon e Number [facility] [address] [place] [address] [address] Albumin Level (08/16/2021 7:33 AM CDT) Pathologist Sig nature Albumin Lvl 4.2Comment: Testing 3.5 - 5.2 gm/dL [facility] Performed at [facility] Lab Primary Care Md [facility], [address], [address], [place] [address] Specimen Blood [facility] - 08/16/2021 8:06 AM CDT Schedule Bone Density Scan And Fasting L abs At [facility] 1 To 7 Days Before Follow Up. Performing Organization Address City/[facility] Code Phon e Number [facility] [address] [facility] [place] [address] [address] after 08/30/2020 Insurance Payer Benefit Plan / Subscriber ID Effective Phone Address T ype Group Dates CIGNA CIGNA [id number] 2019-Prese [address] Medic [place] [id number] MEDICARE [place], [place] ADVANTAGE [address] Care Teams Orange Peel Operator Relationship Specialty Start Date End Date Erika Raygoza MD PCP - External Referring Internal Medicine 02/16/[address] [place] [address] [phone] Carl Alvares, PCP - General Surgical Oncology 02/16/17 Erika Raygoza MD PCP - External Follow Up A Internal Medicine 02/22/[address] [place] [address] [phone]
== END 2021-08-27 15:01 | disposition home or self-care (01) ==
LOC: ER 12:41
DX: G44.319 Acute post-traumatic headache, not intractable (principal); W01.0XXA Fall on same level from slipping, tripping and stumbling without subsequent striking against object, initial encounter; E11.9 Type 2 diabetes mellitus without complications; Z85.3 Personal history of malignant neoplasm of breast
CPT/HCPCS: 70450; 72125; 96372; 99284

== ENCOUNTER 2022-05-30 22:49 | Emergency (ER) | payer OTHER ==
--- OUTSIDE RECORDS SUMMARY | 2022-05-30 22:53 | XMS REPORT | Clinical Summary ---
:1950 Author Organization [facility] MD [facility] Address [address] [place] [address] Care Team Providers Name Role Phone Erika Raygoza MD Unavailable Carl Alvares MD Primary Care Provider Erika Raygoza MD Unavailable Allergies No known active allergies Medications Medication Sig Dispensed Refills Start Date End Date Status pravastatin Take 40 mg by 0 Acti ve (PRAVACHOL) 40 mg mouth daily. tablet denosumab Inject 60 mg 0 Active (PROLIA) 60 mg/mL under the skin syrg injection every 6 (six) months. metFORMIN TAKE 1 TABLET BY 0 01/23/2020 Ac tive (GLUCOPHAGE) 500 MOUTH TWICE mg tablet DAILY WITH A MEAL FOR DIABETES FOR 30 DAYS anastrozole Take 1 tablet by 90 tablet 0 04/06/2021 Active (ARIMIDEX) 1 mg mouth once daily tabletIndications : Personal history of malignant neoplasm of breast FREESTYLE LITE USE DIRECTED 0 01/23/2020 03/21/20 Discontinued METER kit 22 FREESTYLE 28 USE 1 TO CHECK 0 01/25/2020 03/21/20 D iscontinued gauge lancets GLUCOSE ONCE 22 DAILY prednisoLONE INSTILL 1 DROP 0 07/23/2020 03/21/20 D iscontinued acetate (PRED INTO EACH EYE 22 FORTE) 1% TWICE DAILY ophthalmic NEEDED FOR suspension OCULAR IFLAMMATION calcium Take by mouth. 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 8 Encounter [...] Encounters Date Type Specialty Care Team Description 04/06/2022 Hospital Encounter Radiology KamPierce hinton, Lump in left breast CURTAIN INSPECTOR 04/06/2022 Hospital Encounter Radiology KamPierce hinton, Lump in left breast CURTAIN INSPECTOR 04/06/2022 Consult Breast Undiagnosed Pierce Kam Persona l history of CURTAIN INSPECTOR malignant neopl asm of breast 04/06/2022 Documentation Breast Undiagnosed Marlo Douglas RN 04/06/2022 Travel 03/31/2022 Orders Only Cancer Prevention KamPierce hinton, Lump in left breast CURTAIN INSPECTOR (Primary Dx) 03/31/2022 Orders Only Survivorship - Breast Deya Fischer history of breast cancer (Primary Dx); A., FORMULATOR Mammographic br east mass; Breast lump pre sent 03/22/2022 Infusion Infusion Services Priscilla Patel Osteoporo sis R, CUTTING TOOL SHARPENER (Primary Dx) 03/22/2022 Orders Only Breast Medical Deya Fischer Personal hist ory of Oncology A., FORMULATOR malignant neopl asm of breast (Prim jose roberto Dx) 03/22/2022 Travel 03/21/2022 Telemedicine Endocrinology Estefanía Martínez, Osteoporosis ( Primary Dx); Deficiency of v itamin D3 03/21/2022 Travel 03/17/2022 Ancillary Procedure Radiology Priscilla Patel Osteopo rosis R, CUTTING TOOL SHARPENER 03/17/2022 Telephone Breast Medical Geovani Oncology Antonio, [facility] 03/17/2022 Travel 03/16/2022 Orders Only Endocrinology Priscilla Patel CUTTING TOOL SHARPENER 03/10/2022 Orders Only Breast Medical Jessica Lara Oncology Efraín, [facility] 02/22/2022 Orders Only Endocrinology Priscilla Patel Osteoporosis R, CUTTING TOOL SHARPENER (Primary Dx) 02/14/2022 Telephone Endocrinology Priscilla Patel CUTTING TOOL SHARPENER 01/30/2022 Ancillary Procedure Radiology Giorgio, Cancer MD Carl 01/30/2022 Orders Only Breast Medical Michael, Infiltrating duct Oncology Lashonda Wong, CUTTING TOOL SHARPENER carcinoma of u pper inner quadrant of left female americo ast (Primary Dx) 10/12/2021 Refill Breast Medical Michael, Personal hist ory of Oncology Lashonda Wong, CUTTING TOOL SHARPENER malignant neop lasm of breast 10/08/2021 Refill Breast Medical Michael, Personal hist ory of Oncology Lashonda Wong, CUTTING TOOL SHARPENER malignant neop lasm of breast 08/26/2021 Clinical Support Endocrinology Giorgio Osteoporos is MD Carl (Primary Dx) Anaid Bolaños RN 08/26/2021 Travel 08/25/2021 Telephone Endocrinology Elvie Bustillos RN 08/24/2021 Telephone Endocrinology Priscilla Patel FNP 08/17/2021 Documentation Endocrinology Priscilla Patel FNP 08/17/2021 Orders Only Endocrinology Priscilla Patel Osteoporosis (Primary Dx); R, CUTTING TOOL SHARPENER Deficiency of v itamin D3 08/16/2021 Hospital Encounter Lab Priscilla Patel Osteopor osis; R, CUTTING TOOL SHARPENER Abnormal thyroi d hormone; Deficiency of v itamin D3 08/16/2021 Travel after 05/30/2021 Immunizations Name Administration Dates Next Due Influenza, Quadrivalent 08/26/2019 Pneumococcal Conjugate 13-Valent 08/26/2019 Surgical History Surgery Date Site/Laterality Comments APPENDECTOMY 11/25/2011 COLONOSCOPY 10/22/2017 - 10/21/2018 UPPER GASTROINTESTINAL 05/30/2019 ENDOSCOPY BUNIONECTOMY 10/22/2000 - Bilateral 10/21/2001 VA MASTECTOMY, PARTIAL 04/12/2017 Breast/Left Procedure : SEED LOC, SEGMENTAL MASTEC ANAIS - ; Surgeon: Ingrid Alvares MD; Lo cation: [facility]; Service : BREAST VA INTRAOPERATIVE SENTINEL 04/12/2017 Axilla/Left Proce dure: INTRAOPERATIVE LYMPH NODE ID W DYE LYMPHATIC MA PPING; INJECTION Surgeon: Ingrid Alvares MD; Lo cation: [facility]; Service : BREAST VA BX/REMV,LYMPH NODE,DEEP 04/12/2017 Axilla/Left Proce dure: SENTINEL NODE AXILL BIOPSY - AXILLA; Surgeon: Carl thornton MD; Location: [facility]; Service: BREAST EXCISION OF CERVIX USING 1980, 05/26/16 [...] Family History Medical History Relation Name Comments Liver cancer Maternal Grandmother Liver Colon cancer Sister Colon Other Neg Hx parental hip fra cture Relation Name Status Comments Maternal Grandmother Sister Alive Social History Tobacco Use Types Packs/Day Years Used Date Never Smoker Smokeless Tobacco: Never Used Alcohol Use Standard Drinks/Week Comments No 0 (1 standard drink = 0.6 oz pure alcoho l) Sex Assigned at Date Recorded Female 08/26/2020 1:55 PM [employer]LLAR TRIMMER Job Start Date Occupation Industry Not on file Not on file Not on file Obstetrics History Para Term AB IAB SAB [...] Sign Reading Time Taken Comments Blood Pressure 131/71 04/06/2022 11:54 AM CDT Pulse 68 04/06/2022 11:54 AM CDT Temperature 36.9 C (98.4 F) 03/22/2022 9:26 AM CDT Respiratory Rate 16 04/06/2022 11:54 AM CDT Oxygen Saturation 99% 03/22/2022 9:26 AM CDT Inhaled Oxygen Concentration - - Weight 70.3 kg (154 lb 15.7 oz) 04/06/2022 11:54 AM CDT Height 157 cm (5' 1.81") 04/06/2022 11:54 AM CDT Body Mass Index 28.52 04/06/2022 11:54 AM CDT Plan of Treatment Date Type Specialty Care Team Description 08/09/2022 Hospital Encounter Infusion Services Kyle Gamez, Canceled (Physician Request) [facility] [place], [place] [address] 09/20/2022 Lab Lab Priscilla Patel FNP [facility] [place], [place] [address] 09/20/2022 Infusion Infusion Services Kyle Gamez MD [facility] [place], [place] [address] Health Maintenance Due Date Last Done Comments COVID-19 Vaccination (3 - Pfizer risk 02/05/2021 01/08/2021 , 12/18/2020 series) Procedures Procedure Name Priority Date/Time Associated Diagnosis Comme nts US CHEST Routine 04/06/2022 3:45 PM Lump in left breast Re sults for this CDT procedure are i n the results section. US BREAST COMPLETE Routine 04/06/2022 3:45 PM Lump in left americo ast Results for this LEFT CDT procedure are i n the results section. MAMMO DIGITAL Routine 04/06/2022 2:49 PM Lump in left breast R esults for this DIAGNOSTIC BILATERAL CDT procedu re are in W MUKESH the results section. DEXA BONE MINERAL Routine 03/17/2022 10:17 Osteoporosis Result s for this DENSITY BOTH HIPS AM CDT procedure are in AND SPINE the results section. .GLOMERULAR Routine 03/17/2022 9:06 AM Osteoporosis Results f or this FILTRATION RATE CDT procedure ar e in the results section. SERUM CREATININE Routine 03/17/2022 9:06 AM Osteoporosis Resul ts for this CDT procedure are i n the results section. THYROID STIMULATING Routine 03/17/2022 9:06 AM Osteoporosis Re sults for this HORMONE CDT procedure are i n the results section. FREE THYROXINE Routine 03/17/2022 9:06 AM Osteoporosis Results for this CDT procedure are i n the results section. VITAMIN D 25 HYDROXY Routine 03/17/2022 9:06 AM Osteopor osis Results for this LEVEL CDT Deficiency of vitamin proced ure are in D3 the results section. CTX BETA CROSSLAPS Routine 03/17/2022 9:06 AM Osteoporosis Res ults for this CDT procedure are i n the results section. PHOSPHORUS LEVEL Routine 03/17/2022 9:06 AM Osteoporosis Resul ts for this CDT procedure are i n the results section. MAGNESIUM LEVEL Routine 03/17/2022 9:06 AM Osteoporosis Result s for this CDT procedure are i n the results section. SERUM CREATININE Routine 03/17/2022 9:06 AM Osteoporosis CDT CALCIUM LEVEL TOTAL Routine 03/17/2022 9:06 AM Osteoporosis Re sults for this CDT procedure are i n the results section. BLOOD UREA NITROGEN Routine 03/17/2022 9:06 AM Osteoporosis Re sults for this CDT procedure are i n the results section. ALBUMIN LEVEL Routine 03/17/2022 9:06 AM Osteoporosis Results for this CDT procedure are i n the results section. OSI MAMMO BILATERAL Routine 12/08/2021 1:46 PM Cancer Re sults for this COLLAR TRIMMER procedure are i n the results section. .GLOMERULAR Routine 08/16/2021 7:33 AM Osteoporosis Results f or this FILTRATION RATE CDT procedure ar e in the results section. SERUM CREATININE Routine 08/16/2021 7:33 AM Osteoporosis Resul ts for this CDT procedure are i n the results section. CTX BETA CROSSLAPS Routine 08/16/2021 7:33 AM Osteoporosis Res ults for this CDT procedure are i n the results section. VITAMIN D 25 HYDROXY Routine 08/16/2021 7:33 AM Osteopor osis Results for this LEVEL CDT Deficiency of vitamin proced ure are in D3 the results section. THYROID STIMULATING Routine 08/16/2021 7:33 AM Osteoporo sis Results for this HORMONE CDT Abnormal thyroid procedure a re in hormone the results section. FREE THYROXINE Routine 08/16/2021 7:33 AM Osteoporosis Results for this CDT Abnormal thyroid procedure a re in hormone the results section. PHOSPHORUS LEVEL Routine 08/16/2021 7:33 AM Osteoporosis Resul ts for this CDT procedure are i n the results section. MAGNESIUM LEVEL Routine 08/16/2021 7:33 AM Osteoporosis Result s for this CDT procedure are i n the results section. SERUM CREATININE Routine 08/16/2021 7:33 AM Osteoporosis CDT CALCIUM LEVEL TOTAL Routine 08/16/2021 7:33 AM Osteoporosis Re sults for this CDT procedure are i n the results section. BLOOD UREA NITROGEN Routine 08/16/2021 7:33 AM Osteoporosis Re sults for this CDT procedure are i n the results section. ALBUMIN LEVEL Routine 08/16/2021 7:33 AM Osteoporosis Results for this CDT procedure are i n the results section. after 05/30/2021 Results US Chest for Breast Ultrasound (Add-on Only) (04/06/2022 3:45 PM CDT) Anatomical Region Laterality Modality Chest Ultrasound Specimen (Source) Anatomical Collection Method Collection Time Re ceived Time Location / / Volume Laterality 04/06/2022 3:46 PM CDT Impressions 04/06/2022 3:52 PM CDT No suspicious sonographic findings in re ported area of pain or palpable finding in the left breast. Clinical followup is recommended. ACR BI-RADS Category: 2. Benign. Recommend annual surveillance. I personally reviewed these image(s) nereida mckeon with the resident's/fellow's interpretations, certify that if a procedure was performed I was physically present, and agree with the final report. Narrative 04/06/2022 3:52 PM CDT FULL RESULT: Examination: US BREAST COMPLETE LEFT, US CHEST 04/06/2022 3:45 PM Clinical History: 71-year-old female wit h history of left breast cancer status post segmental mastectomy in 2017. Patient presents with pain and palpable finding in the left breast. Indication: Breast pain, palpable findin g Comparison: Same day mammogram 04/06/2022 . Outside mammogram 12/08/2021. Breast ultrasound 02/22/2017. Technique: Real-time sonographic imaging of the left breast (including all 4 quadrants and retroareolar region) was performed. Ultrasound imaging was performed of the left axilla (levels I, II, and III) and left chest/mediastinum (to evaluate the internal mammary lymph nodes). Images were obtained in multiple scanning planes. Findings: Left breast: Postsurgical scarring is seen in the 12 o'clock position related to prior segmental mastectomy. There are no suspicious sonographic findings. Specifically, there is no suspicious sonographic abnormality in reported area of pain throughout the breast or in the region of palpable finding in the 12-2 o'clock position. Left regional issa basins: Postsurgical scarring is seen in the axi lla level I region. There is no suspicious axillary (levels I-III) or internal mammary lymphadenopathy. Procedure Note Johnny Menendez MD - 04/06/2022 FULL RESULT: Examination: US BREAST COMPLETE LEFT, US CHEST 04/06/2022 3:45 PM Clinical History: 71-year-old female wit h history of left breast cancer status post segmental mastectomy in 2017. Patient presents with pain and palpable finding in the left breast. Indication: Breast pain, palpable findin g Comparison: Same day mammogram 04/06/2022 . Outside mammogram 12/08/2021. Breast ultrasound 02/22/2017. Technique: Real-time sonographic imaging of the left breast (including all 4 quadrants and retroareolar region) was performed. Ultrasound imaging was performed of the left axilla (levels I, II, and III) and left chest/mediastinum (to evaluate the inter nal mammary lymph nodes). Images were obtained in multiple scanning planes. Findings: Left breast: Postsurgical scarring is seen in the 12 o'clock position related to prior segmental mastectomy. There are no suspicious sonographic findings. Specifically, there is no suspicious sonographic abnormality in reported area of pain throughout the breast or in the region of palpable finding in the 12-2 o'clock position. Left regional issa basins: Postsurgical scarring is seen in the axi lla level I region. There is no suspicious axillary (levels I-III) or internal mammary lymphadenopathy. IMPRESSION: No suspicious sonographic findings in re ported area of pain or palpable finding in the left breast. Clinical followup is recommended. ACR BI-RADS Category: 2. Benign. Recommend annual surveillance. I personally reviewed these image(s) nereida ng with the resident's/fellow's interpretations, certify that if a procedure was performed I was physically present, and agree with the final report. Pierce Kam [place] [facility] [place] US Breast Complete Left (04/06/2022 3:45 PM CDT) Anatomical Region Laterality Modality Breast Left Ultrasound Specimen (Source) Anatomical Collection Method Collection Time Re ceived Time Location / / Volume Laterality 04/06/2022 3:46 PM CDT Impressions 04/06/2022 3:52 PM CDT No suspicious sonographic findings in re ported area of pain or palpable finding in the left breast. Clinical followup is recommended. ACR BI-RADS Category: 2. Benign. Recommend annual surveillance. I personally reviewed these image(s) nereida ng with the resident's/fellow's interpretations, certify that if a procedure was performed I was physically present, and agree with the final report. Narrative 04/06/2022 3:52 PM CDT FULL RESULT: Examination: US BREAST COMPLETE LEFT, US CHEST 04/06/2022 3:45 PM Clinical History: 71-year-old female wit h history of left breast cancer status post segmental mastectomy in 2017. Patient presents with pain and palpable finding in the left breast. Indication: Breast pain, palpable findin g Comparison: Same day mammogram 04/06/2022 . Outside mammogram 12/08/2021. Breast ultrasound 02/22/2017. Technique: Real-time sonographic imaging of the left breast (including all 4 quadrants and retroareolar region) was performed. Ultrasound imaging was performed of the left axilla (levels I, II, and III) and left chest/mediastinum (to evaluate the internal mammary lymph nodes). Images were obtained in multiple scanning planes. Findings: Left breast: Postsurgical scarring is seen in the 12 o'clock position related to prior segmental mastectomy. There are no suspicious sonographic findings. Specifically, there is no suspicious sonographic abnormality in reported area of pain throughout the breast or in the region of palpable finding in the 12-2 o'clock position. Left regional issa basins: Postsurgical scarring is seen in the axi lla level I region. There is no suspicious axillary (levels I-III) or internal mammary lymphadenopathy. Procedure Note Johnny Menendez MD - 04/06/2022 FULL RESULT: Examination: US BREAST COMPLETE LEFT, US CHEST 04/06/2022 3:45 PM Clinical History: 71-year-old female wit h history of left breast cancer status post segmental mastectomy in 2017. Patient presents with pain and palpable finding in the left breast. Indication: Breast pain, palpable findin g Comparison: Same day mammogram 04/06/2022 . Outside mammogram 12/08/2021. Breast ultrasound 02/22/2017. Technique: Real-time sonographic imaging of the left breast (including all 4 quadrants and retroareolar region) was performed. Ultrasound imaging was performed of the left axilla (levels I, II, and III) and left chest/mediastinum (to evaluate the inter nal mammary lymph nodes). Images were obtained in multiple scanning planes. Findings: Left breast: Postsurgical scarring is seen in the 12 o'clock position related to prior segmental mastectomy. There are no suspicious sonographic findings. Specifically, there is no suspicious sonographic abnormality in reported area of pain throughout the breast or in the region of palpable finding in the 12-2 o'clock position. Left regional issa basins: Postsurgical scarring is seen in the axi lla level I region. There is no suspicious axillary (levels I-III) or internal mammary lymphadenopathy. IMPRESSION: No suspicious sonographic findings in re ported area of pain or palpable finding in the left breast. Clinical followup is recommended. ACR BI-RADS Category: 2. Benign. Recommend annual surveillance. I personally reviewed these image(s) nereida mckeon with the resident's/fellow's interpretations, certify that if a procedure was performed I was physically present, and agree with the final report. Pierce ALSTON US ORDERABLES (ABNORMAL) Mammography Digital Diagnostic Bilateral with Mukesh (04/06/2022 2:49 PM CDT) Anatomical Region Laterality Modality Breast Bilateral Mammography Specimen (Source) Anatomical Collection Method Collection Time Re ceived Time Location / / Volume Laterality 04/06/2022 3:18 PM CDT Impressions 04/06/2022 3:18 PM CDT 1: Stable post surgical scar in the left breast upper hemisphere at 12 o'clock located 5 centimeters from the nipple is benign. 2: Area in the left breast requires ad ditional imaging evaluation. An ultrasound exam is recommended. I personally reviewed these image(s) nereida mckeon with the resident's/fellow's interpretations, certify that if a proce dure was performed I was physically present, and agree with the final report . BI-RADS Category 0: Incomplete: Needs Additional Imaging Rebekah holland Narrative 04/06/2022 3:18 PM CDT CLINICAL INDICATION: Patient is a 71 year old female and is s een for breast tenderness MAMMO DIGITAL DIAGNOSTIC BILATERAL W KHUSHI O COMPARISON: The present examination has been compare d to prior imaging studies performed at an outside location on 12/08/2021, and a [facility] on 02/22/2017, 12/04/2017, 12/19/2018 an d 12/16/2019. FINDINGS: There are scattered areas of fibroglandu lar density. 1: There is a stable post surgical sca r with associated post radiation change and surgical clips in the left breast up per hemisphere at 12 o'clock located 5 centimeters from the nipple. The asymm etry noted on prior outside mammogram in the posterior third of the left breast o n CC view at the level of the nipple is no longer visible. 2: There is no radiographic abnormalit y in the region of the pain in the left breast. In the right breast, no dominant mass, d istortion, or suspicious calcifications are identified. Tomosynthesis performed in CC and MLO pr ojections. Procedure Note Johnny Menendez MD - 04/06/2022 CLINICAL INDICATION: Patient is a 71 year old female and is s een for breast tenderness MAMMO DIGITAL DIAGNOSTIC BILATERAL W KHUSHI O COMPARISON: The present examination has been compare d to prior imaging studies performed at an outside location on 12/08/2021, and a [facility] on 02/22/2017, 12/04/2017, 12/19/2018 an d 12/16/2019. FINDINGS: There are scattered areas of fibroglandu lar density. 1: There is a stable post surgical scar with associated post radiation change and surgical clips in the left breast up per hemisphere at 12 o'clock located 5 centimeters from the nipple. The asymmet ry noted on prior outside mammogram in the posterior third of the left breast o n CC view at the level of the nipple is no longer visible. 2: There is no radiographic abnormality in the region of the pain in the left breast. In the right breast, no dominant mass, d istortion, or suspicious calcifications are identified. Tomosynthesis performed in CC and MLO pr ojections. IMPRESSION: 1: Stable post surgical scar in the left breast upper hemisphere at 12 o'clock located 5 centimeters from the nipple is benign. 2: Area in the left breast requires rashid tional imaging evaluation. An ultrasound exam is recommended. I personally reviewed these image(s) nereida mckeon with the resident's/fellow's interpretations, certify that if a proce dure was performed I was physically present, and agree with the final report . BI-RADS Category 0: Incomplete: Needs Additional Imaging Rebekah luation Pierce Beckfordandres [facility] MAMMOGRAPHY ORDERABLES NM Bone Mineral Density Both Hips and Spine (03/17/2022 10:17 AM CDT) Anatomical Region Laterality Modality Spine Nuclear Medicine Specimen (Source) Anatomical Collection Method Collection Time Re ceived Time Location / / Volume Laterality 03/17/2022 10:19 AM CDT Impressions 03/17/2022 10:41 AM CDT Osteopenia based on measurements of the lumbar spine and right femoral neck. 2. Significant interval increase in bone mass in the left femoral neck is likely due to interscan variation. I personally reviewed these image(s) nereida mckeon with the resident's/fellow's interpretations, certify that if a procedure was performed I was physically present, and agree with the final report. Narrative 03/17/2022 10:41 AM CDT FULL RESULT: Examination: Bone Mineral Density (DXA), 03/17/2022 Clinical History: 71-year-old post menop ausal female treated for breast cancer. Indication: Assessment of bone mineral d ensity. Comparison: 08/10/2020 Technique: Bone mineral density was obta ined using Hologic dual-energy X-ray absorptiometry. Findings: The findings are provided in t he below table(s). Bone Density: Region Exam Date BMD T- Z- g/cm2 Score Score AP Spine (L1-L4) 03/17/2022 0. 813 -2.1 -0.1 Femoral Neck (Left) 03/17/2022 0. 770 -0.9 0.8 Total Hip (Left) 03/17/2022 0. 871 -0.7 0.7 Femoral Neck (Right) 03/17/2022 0. 748 -1.1 0.6 Total Hip (Right) 03/17/2022 0. 892 -0.5 0.9 For postmenopausal women and men age 50 and over, the World Health Organization criteria for BMD interpreta tion classify patients as: Normal (T-score at or above -1.0), Osteopenia ( T-score between -1.0 and -2.5), or Osteoporosis (T-score at or be low -2.5). Previous Exams: Region Exam Age BMD T-score B MD Change vs Date g/cm2 Baseline Previous AP Spine (L1-L4) 03/17/2022 71 0.813 -2.1 4.7%* -1.8% 07/22/2019 68 0.828 -2.0 6.7%* 7.3%* 07/18/2018 67 0.772 -2.5 -0.5% -0.5% 05/03/2017 66 0.776 -2.5 Total Hip(Left) 03/17/2022 71 0.871 -0.7 0.7% 0.7% 08/10/2020 69 0.865 -0.7 0.0% -1.0% 07/22/2019 68 0.874 -0.7 1.0% 2.4% 07/18/2018 67 0.853 -0.8 -1.3% -1.3% 05/03/2017 66 0.865 -0.7 Femoral Neck(Left) 03/17/2022 71 0.770 -0.9 -1.6% 7.7%* 08/10/2020 69 0.715 -1.3 -8.6%* -3.0% 07/22/2019 68 0.737 -1.2 -5.9%* 1.6% 07/18/2018 67 0.726 -1.3 -7.3%* -7.3%* 05/03/2017 66 0.783 -0.8 Total Hip(Right) 03/17/2022 71 0.892 -0.5 3.6% 2.2% 08/10/2020 69 0.873 -0.7 1.4% -4.2%* 07/22/2019 68 0.912 -0.4 5.9%* 2.4% 07/18/2018 67 0.890 -0.5 3.4% 3.4% 05/03/2017 66 0.861 -0.8 Femoral Neck(Right) 03/17/2022 71 0.748 -1.1 2.8% 4.8% 08/10/2020 69 0.713 -1.4 -2.0% -2.8% 07/22/2019 68 0.734 -1.2 0.8% 4.7% 07/18/2018 67 0.701 -1.5 -3.7% -3.7% 05/03/2017 66 0.727 -1.2 *Denotes significance at 95% confidence level, site specific LSC for AP Spine = 0.029 g/cm2, site specific LSC for Tot al Hip = 0.033 g/cm2, site specific LSC for Femoral Neck = 0.045 g/cm2, LSC for 1/3 Forearm = 0.023 g/cm2 Procedure Note Brianne Talavera MD - 03/17/2022 FULL RESULT: Examination: Bone Mineral Density (DXA), 03/17/2022 Clinical History: 71-year-old post menop ausal female treated for breast cancer. Indication: Assessment of bone mineral d ensity. Comparison: 08/10/2020 Technique: Bone mineral density was obta ined using Hologic dual-energy X-ray absorptiometry. Findings: The findings are provided in t he below table(s). Bone Density: Region Exam Date BMD T- Z- g/cm2 Score Score AP Spine (L1-L4) 03/17/2022 0.813 -2.1 -0.1 Femoral Neck (Left) 03/17/2022 0.770 -0.9 0.8 Total Hip (Left) 03/17/2022 0.871 -0.7 0.7 Femoral Neck (Right) 03/17/2022 0.748 -1.1 0.6 Total Hip (Right) 03/17/2022 0.892 -0.5 0.9 For postmenopausal women and men age 50 and over, the World Health Organization criteria for BMD interpreta tion classify patients as: Normal (T-score at or above -1.0), Osteopenia ( T-score between -1.0 and -2.5), or Osteoporosis (T-score at or be low -2.5). Previous Exams: Region Exam Age BMD T-score BMD Change v s Date g/cm2 Baseline Previous AP Spine (L1-L4) 03/17/2022 71 0.813 -2.1 4.7%* -1.8% 07/22/2019 68 0.828 -2.0 6.7%* 7.3%* 07/18/2018 67 0.772 -2.5 -0.5% -0.5% 05/03/2017 66 0.776 -2.5 Total Hip(Left) 03/17/2022 71 0.871 -0.7 0.7% 0.7% 08/10/2020 69 0.865 -0.7 0.0% -1.0% 07/22/2019 68 0.874 -0.7 1.0% 2.4% 07/18/2018 67 0.853 -0.8 -1.3% -1.3% 05/03/2017 66 0.865 -0.7 Femoral Neck(Left) 03/17/2022 71 0.770 -0.9 -1.6% 7.7%* 08/10/2020 69 0.715 -1.3 -8.6%* -3.0% 07/22/2019 68 0.737 -1.2 -5.9%* 1.6% 07/18/2018 67 0.726 -1.3 -7.3%* -7.3%* 05/03/2017 66 0.783 -0.8 Total Hip(Right) 03/17/2022 71 0.892 -0.5 3.6% 2.2% 08/10/2020 69 0.873 -0.7 1.4% -4.2%* 07/22/2019 68 0.912 -0.4 5.9%* 2.4% 07/18/2018 67 0.890 -0.5 3.4% 3.4% 05/03/2017 66 0.861 -0.8 Femoral Neck(Right) 03/17/2022 71 0.748 -1.1 2.8% 4.8% 08/10/2020 69 0.713 -1.4 -2.0% -2.8% 07/22/2019 68 0.734 -1.2 0.8% 4.7% 07/18/2018 67 0.701 -1.5 -3.7% -3.7% 05/03/2017 66 0.727 -1.2 *Denotes significance at 95% confidence level, site specific LSC for AP Spine = 0.029 g/cm2, site specific LSC for Tot al Hip = 0.033 g/cm2, site specific LSC for Femoral Neck = 0.045 g/cm2, LSC for 1/3 Forearm = 0.023 g/cm2 IMPRESSION: Osteopenia based on measurements of the lumbar spine and right femoral neck. 2. Significant interval increase in bone mass in the left femoral neck is likely due to interscan variation. I personally reviewed these image(s) [email or web address] with the resident's/fellow's interpretations, certify that if a procedure was performed I was physically present, and agree with the final report. Priscilla PAVON IMG DXA ORDERABLES .Serum Creatinine (03/17/2022 9:06 AM CDT)Only the most recent of2 resultswithin the time period is included. athologist Signature Creatinine 0.63 0.51 - 0.95 MOBILE mg/dL Comment: [facility] performed [facility], [address] [place] [id number] Specimen Anatomical Collection Method Collection Time Receive d Time (Source) Location / / Volume Laterality Blood 03/17/2022 9:06 AM 9:17 CDT AM CDT Narrative MOBILE - 03/17/2022 9:56 AM CDT Labs Fasting. Priscilla PAVON LAB BLOOD ORDERABLES Performing Organization Address City/State/[place] [address] [place] [address] Glomerular Filtration Rate (03/17/2022 9:06 AM CDT)Only the most recent of2 resultswithin the time period is included. athologist Signature eGFR-AA 106 >=60 MOBILE mL/min/1.73 sq. m Comment: Normal eGFR >= 60 mL/min/1.73 m2 Note: The eGFR is calculated using the C KD-EPI equation. The eGFR declines with age. eGFR <60 mL/min/1.73 m2 is considered as "decreased". This equation should only be used for patients 18 and older. According to the National Kidney Found[employer] ion's Kidney Disease Outcome Quality Initiative (KDOQI) classification and 2012 Kidney Disease Improving Global Outcomes (KDIGO) Clinical Practice Guideline, the stage of CKD should be categorized based on estimated GFR. Stage Description GFR mL/min/1. 73 m2 1 Normal or high GFR >=90 2 Mildly decreased GFR 60-89 3a Mildly to moderately decreased GFR 45-59 3b Moderately to severely decreased GFR 30-44 4 Severely decreased GFR 15-29 5 Kidney failure <15 Testing performed at [facility], [address] [place] [address] eGFR-MIRI 92 >=60 mL/min/1.73 sq. m MOBILE Comment: Normal eGFR >= 60 mL/min/1.73 m2 Note: The eGFR is calculated using the C KD-EPI equation. The eGFR declines with age. eGFR <60 mL/min/1.73 m2 is considered as "decreased". This equation should only be used for patients 18 and older. According to the National Kidney [employer] ion's Kidney Disease Outcome Quality Initiative (KDOQI) classification and 2012 Kidney Disease Improving Global Outcomes (KDIGO) Clinical Practice Guideline, the stage of CKD should be categorized based on estimated GFR. Stage Description GFR mL/min/1. 73 m2 1 Normal or high GFR >=90 2 Mildly decreased GFR 60-89 3a Mildly to moderately decreased GFR 45-59 3b Moderately to severely decreased GFR 30-44 4 Severely decreased GFR 15-29 5 Kidney failure <15 Testing performed at [facility], [address] [place] [address] Specimen Anatomical Collection Method Collection Time Receive d Time (Source) Location / / Volume Laterality Blood 03/17/2022 9:06 AM 2 9:17 CDT AM CDT Narrative MOBILE - 03/17/2022 9:56 AM CDT Labs Fasting. Priscilla Patel CUTTING TOOL SHARPENER LAB BLOOD ORDERABLES Performing Organization Address City/State/ZIP Code Phon e Number [place], [place] [id number] [place] [address] CTX Beta Crosslaps (03/17/2022 9:06 AM CDT)Only the most recent of2 results within the time period is included. athologist Signature CTX 656 pg/mL [facility] Comment: Males: <30 years: not established 30-50 years: 16 - 584 pg/mL 51-70 years: 10 - 704 pg/mL >70 years: 10 - 854 pg/mL Females: Premenopausal: 25 - 573 pg/mL Postmenopausal: 104 - 1008 pg/mL Specimen Anatomical Collection Method Collection Time Receive d Time (Source) Location / / Volume Laterality Blood 03/17/2022 9:06 AM 2 2:02 CDT PM CDT Narrative [facility] - 2 2:33 PM CDT Labs Fasting. Priscilla Patel CUTTING TOOL SHARPENER LAB BLOOD ORDERABLES Performing Organization Address City/State/ZIP Code Phon e Number [facility] Unless otherwise noted, [place] [address] [place] all lab tests performed by: Division of Pathology and Laboratory Medicine [facility] [place] Vitamin D 25OH (03/17/2022 9:06 AM CDT)Only the most recent of2 resultswithin the time period is included. athologist Signature Vitamin D 25 OH 35 30 - 100 MOBILE ng/mL Comment: Reference Range: Deficiency: <10 ng/mL Insufficiency: 10-29 ng/mL Sufficiency: 30-100 ng/mL Potential toxicity: >100 ng/mL Testing performed at [facility], [address] [place] [address] Specimen Anatomical Collection Method Collection Time Receive d Time (Source) Location / / Volume Laterality Blood 03/17/2022 9:06 AM 2 9:17 CDT AM CDT Narrative MOBILE - 03/17/2022 10:04 AM CDT Labs Fasting. Priscilla Patel CUTTING TOOL SHARPENER LAB BLOOD ORDERABLES Performing Organization Address City/State/ZIP Code Phon e Number [place], [place] [id number] [place] [address] BUN (03/17/2022 9:06 AM CDT)Only the most recent of2 resultswithin the time period is included. athologist Signature BUN 9 6 - 23 mg/dL MOBILE Comment: Testing performed at [facility], [address] [place] [address] Specimen Anatomical Collection Method Collection Time Receive d Time (Source) Location / / Volume Laterality Blood 03/17/2022 9:06 AM 2 9:17 CDT AM CDT Narrative MOBILE - 03/17/2022 9:56 AM CDT Labs Fasting. Priscilla Patel CUTTING TOOL SHARPENER LAB BLOOD ORDERABLES Performing Organization Address City/[facility]/ZIP Code Phon e [address] TSH (03/17/2022 9:06 AM CDT)Only the most recent of2 resultswithin the time period is included. athologist Signature TSH 2.62 0.27 - 4.20 MOBILE mcunit/mL Comment: Testing performed at [facility], [address] [place] [address] Specimen Anatomical Collection Method Collection Time Receive d Time (Source) Location / / Volume Laterality Blood 03/17/2022 9:06 AM 2 9:17 CDT AM CDT [facility] - 03/17/2022 9:56 AM CDT Labs Fasting. Priscilla Patel CUTTING TOOL SHARPENER LAB BLOOD ORDERABLES Performing Organization Address City/[facility] Code Phon e [place], [place] [phone] [place] [address] T4 Free (03/17/2022 9:06 AM CDT)Only the most recent of2 resultswithin the time period is included. athologist Signature T4 Free 1.07 0.93 - 1.70 MOBILE ng/dL Comment: Testing performed at [facility], [address] [place] [address] Specimen Anatomical Collection Method Collection Time Receive d Time (Source) Location / / Volume Laterality Blood 03/17/2022 9:06 AM 2 9:17 CDT AM CDT Narrative MOBILE - 03/17/2022 9:56 AM CDT Labs Fasting. Priscilla Giana Patel CUTTING TOOL SHARPENER LAB BLOOD ORDERABLES Performing Organization Address City/[facility]/ZIP Code Phon e Number [place], [place] [phone] [place] [address] Phosphorus Level (03/17/2022 9:06 AM CDT)Only the most recent of2 resultswithin the time period is included. athologist Signature Phosphorus 4.2 2.5 - 4.5 MOBILE mg/dL Comment: Testing performed at [facility], [address] [place] [address] Specimen Anatomical Collection Method Collection Time Receive d Time (Source) Location / / Volume Laterality Blood 03/17/2022 9:06 AM 2 9:17 CDT AM CDT [facility] - 03/17/2022 9:56 AM CDT Labs Fasting. Priscilla Patel CUTTING TOOL SHARPENER LAB BLOOD ORDERABLES Performing Organization Address [facility] Code [address] Magnesium Level (03/17/2022 9:06 AM CDT)Only the most recent of2 resultswithin the time period is included. athologist Signature Magnesium 2.2 1.6 - 2.6 MOBILE mg/dL Comment: Testing performed at [facility], [address] [place] [phone] Specimen Anatomical Collection Method Collection Time Receive d Time (Source) Location / / Volume Laterality Blood 03/17/2022 9:06 AM 2 9:17 CDT AM CDT [facility] - 03/17/2022 9:56 AM CDT Labs Fasting. Priscilla Patel CUTTING TOOL SHARPENER LAB BLOOD ORDERABLES Performing Organization Address City/[facility]/ZIP Code Phon e Number [address] (ABNORMAL) Calcium Level (03/17/2022 9:06 AM CDT)Only the most recent of2 resultswithin the time period is included. athologist Signature Calcium Lvl 10.3 (H) 8.4 - 10.2 MOBILE mg/dL Comment: Testing performed at [facility], [address] [place] [address] Specimen Anatomical Collection Method Collection Time Receive d Time (Source) Location / / Volume Laterality Blood 03/17/2022 9:06 AM 2 9:17 CDT AM CDT [facility] - 03/17/2022 9:56 AM CDT Labs Fasting. Priscilla Patel CUTTING TOOL SHARPENER LAB BLOOD ORDERABLES Performing Organization Address City/State/ZIP Code Phon e Number [place], [place] [phone] [place] [address] Albumin Level (03/17/2022 9:06 AM CDT)Only the most recent of2 resultswithin the time period is included. athologist Signature Albumin Lvl 4.1 3.5 - 5.2 MOBILE gm/dL Comment: Testing performed at [facility], [address] [place] [address] Specimen Anatomical Collection Method Collection Time Receive d Time (Source) Location / / Volume Laterality Blood 03/17/2022 9:06 AM 2 9:17 CDT AM CDT [facility] - 03/17/2022 9:56 AM CDT Labs Fasting. Priscilla Patel CUTTING TOOL SHARPENER LAB BLOOD ORDERABLES Performing Organization Address City/[facility]/[place] [address] [place] [address] OSI Mammo (12/08/2021 1:46 PM COLLAR TRIMMER) Specimen (Source) Anatomical Location Collection Method / Collectio n Time Received Time / Laterality Volume Narrative [facility] - 01/30/2022 1:46 PM CDT Study acquired at another institution. For comparison only. No MD Hany originated interpretation requested or a vailable. Keisha COLLADOG OUTSIDE IMAGE ORDERABLES Performing Organization Address City/State/ZIP Code Phon e Number [facility] after 05/30/2021 Insurance Payer Benefit Plan / Subscriber ID Effective Phone Address T ype Group Dates [facility] [employer]LL[employer] [facility] [id number] 2021-Pres [address] Medicare MEDICARE [place] [id number] [place] [address] [place] [id number] 2022-Pres [address] Medicaid TRADITIONAL TRADITIONAL STAR ent [id number] [place] [address] Care Teams [employer] Relationship Specialty Start Date End Date Erika Raygoza MD PCP - External Referring Internal Medicine 02/16/[address] [place] [id number] Carl Alvares, PCP - General Surgical Oncology 02/16/17 Erika Raygoza MD PCP - External Follow Up A Internal Medicine 02/22/[address] [place] [address]
--- OUTSIDE RECORDS SUMMARY | 2022-05-30 22:54 | XMS REPORT | Continuity of Care Document ---
:1950 Author Organization [facility] t Address [facility] [place] [address] Care Team Providers Name Role Phone [phone] Primary Care Physician Unavailable Kailey Garcias Attending Clinician Unavailable Pierce Kam APN Attending Clinician Misael IVEY, Marlo Callahan Attending Clinician Amado NELSON, Deya Jose Attending Clinician Priscilla Chew Attending Clinician Estefanía Martínez MD Attending Clinician Antonio Olivo RN Attending Clinician Unavailable Jessica Lara RN Attending Clinician Carlota Alvares MD Attending Clinician CARLOTA ALVARES Attending Clinician Unavailable Lashonda Michelle Attending Clinician Miky IVEY, Anaid Attending Clinician Unavailable Elvie Bustillos RN Attending Clinician Unavailable PRISCILLA PATEL Attending Clinician Unavailable Payers Payer Name Policy Type Policy Number Effective Date Expiration Date S hpill [facility] MEDICARE [id number] 2021 ADVANTAGE 00:00:00 [email or web address] [id number] 2019 MEDICARE ADVANTAGE 00:00:00 Problems Condition Condition Condition Status Onset Resolution Last Treating Co mments Source Name Details Category Date Date Treatment Clinician Date 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 9-27 ity of use of use of 00:00: [place] aromatase aromatase 00 inhibitor inhibitor Luther rso [facility] Encounter Encounter Disease Active Uni vers for for 8-25 ity of observatio observatio 00:00: Isael lin n for n for 00 MD other other Anderso suspected suspected n condition condition Canc er ruled out ruled out Cent er Personal Personal Disease Active Unive rs history of history of 8-17 it y of peptic peptic 00:00: [place] ulcer ulcer 00 disease disease [facility] Broken Broken Disease Active Univers tooth tooth 8-17 ity of without without 00:00: [place] complicati complicati 00 on on [facility] Osteoporos Osteoporos Disease Active U nivers is is 7-13 ity of 00:00: [place] MD [place] [facility] Menopausal Menopausal Disease Active U nivers flushing flushing 7-07 ity of 00:00: [place] 00 MD [place] [facility] Deficiency Deficiency Disease Active U nivers of vitamin of vitamin 7-07 it y of D3 D3 00:00: [place] 00 MD Iqra thornton [facility] 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 00:00[place] of upper of upper 00 inner inner Anderso quadrant quadrant n of left of left Cancer female female Center breast breast Cervical Cervical Disease Active Unive rs dysplasia dysplasia ity of [place] MD [place] [facility] Personal Personal Disease Active Unive rs history of history of it y of 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 delia moreno MD radiation radiation Luther rso exposure exposure [facility] Osteoporos Osteoporos Problem Active Bsailio mata is is [facility] Prediabete Prediabete Problem Active Basilio mata s s [facility] Ulcer Ulcer Problem Active Common [facility] Diabetes Diabetes Problem Active Commo n [facility] Hyperlipid Hyperlipid Problem Active Basilio mata emia emia [facility] History of History of Problem Active C ommon breast breast Spirit cancer cancer - [facility] Obesity Obesity Problem Active Common (BMI (BMI Spirit 30-39.9) 30-39.9) - [facility] Cancer Cancer Problem Active Common 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 Allergies, Adverse Reactions, Alerts This patient has no known allergies or adverse reactions. Family History Family Member Diagnosis Comments Start Date Stop Date Source Maternal grandmother Liver cancer Un iversity of [facility] Natural sister Colon cancer [facility] [place] [facility] Family member Other [facility] Social History Social Habit Start Date Stop Date Quantity Comments Source Alcohol intake 2022-04-06 2022-04-06 Current University 00:00:00 00:00:00 non-drinker of [place] MD Williams parker alcohol ([facility] Tobacco use and 2017-02-23 2017-02-23 Smokeless tobacco Un iversity of exposure 00:00:00 00:00:00 non-user [place] MD Abdullahi bailey [facility] Sex Assigned At [birth year] F Universit y of 00:00:00 00:00:00 [place] MD [facility] Smoking Status Start Date Stop Date Source Never smoked tobacco [facility] Medications Ordered Filled Start Stop Current Ordering Indication Dosage Frequency Signature Comments Components Source Medication Medication Date Date Medication? Clinician (SIG) Name Name pravastatin Yes 40mg Take 40 mg Univers (PRAVACHOL) 6-16 by mouth ity of 40 mg 12:02: daily. [place] tablet 09 MD Iqra thornton [facility] denosumab Yes 60mg Inject 60 Uni vers (PROLIA) 60 6-16 mg under ity of mg/mL syrg 12:02: the skin Vincent as injection 09 every 6 (six) Iqra borja [facility] calcium 2021- Take by [facility] s carbonate/v 5-27 05-27 mouth. 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 of [facility] predniso[facility]ON 2019-10- No INSTILL 1 Univers E acetate 03-21 DROP INTO ity of (PRED 00:00: 00:00 EACH EYE [place] FORTE) 1% 00 :00 TWICE MD ophthalmic DAILY Abdullahi so suspension NEEDED FOR n [facility] FREE[facility] 2021- No USE 1 TO Uni vers 28 gauge 01-24 CHECK ity of lancets 00:00: 00:00 GLUCOSE [place] 00 :00 ONCE DAILY [facility] metFORMIN Yes TAKE 1 Univer s (GLUCOPHAGE 4-03 TABLET BY ity of ) 500 mg 00:00: MOUTH [place] tablet 00 TWICE MD DAILY WITH Anderso A MEAL FOR n DIABETES Cancer FOR 30 Center DAYS Blood Blood 2020-0 Yes Kailey as Common Glucose Glucose 4-03 Millender directed Spirit Monitor Monitor 00:00: (DISPENSE - [facility] 00 BLOOD GLUCOSE [facility] MONITOR Medical FORMULARY Center TO INSURANCE) Glucose Glucose 2020-0 Yes Kailey as Common testing testing 4-03 Millender directed Spirit strips strips 00:00: (dispense - CH I [address] strips [facility] Medical to Center insurance) Metformin Metformin 2019-0 Yes Kailey 1 tablet Common HCl HCl 4-03 Millender with a Spirit 00:00: meal - [facility] 00 [facility] Lancets Lancets 2019-0 Yes Kailey as Common 4-03 Millender directed Spirit 00:00: (dispense - [facility] 00 lancets [facility] to Medical insurance) [place] FREESTYLE 2021- No USE Unive rs LITE METER 01-22 DIRECTED ity of kit 00:00: 00:00 [place] 00 :00 [facility] Ranitidine Ranitidine Yes Kailey 1 tablet Common HCl HCl Millender [facility] Stool Stool Yes Kailey 1 capsule Common Softener Softener Millender as needed [facility] Pravastatin Pravastatin Yes Kailey 1 tablet Common Sodium Sodium Millender [facility] Prolia Prolia Yes Kailye as Common Millender directed [facility] Citracal Citracal Yes Kailey as Common Plus Plus Millender directed [facility] Anastrozole Anastrozole 2019- No Kailey 1 tablet Common 05 Millender Spirit 00:00 - CHI :00 [facility] Immunizations Ordered Filled Immunization Date Status Comments Sour e Immunization Name Name Pneumococcal 2019-08-26 Completed Adams o f Conjugate 13-Valent 00:00:00 [place] [facility] Influenza, 2019-08-26 Completed Adams of Quadrivalent 00:00:00 [place] [facility] Vital Signs Vital Name Observation Time Observation Value Comments Source Systolic blood 2022-04-06 16:54:21 131 mm[Hg] Univer sity of pressure [place] MD P[facility]ell on [facility] Diastolic blood 2022-04-06 16:54:21 71 mm[Hg] Unive rsity of pressure [place] MD [facility] on [facility] Heart rate 2022-04-06 16:54:21 68 /min [facility] MD P[facility]ell on [facility] Center Respiratory rate 2022-04-06 16:54:21 16 /min [facility] MD [facility] on [facility] Body height 2022-04-06 16:54:21 157 cm [facility] MD P[facility]ell on [facility] Center Body weight 2022-04-06 16:54:21 70.3 kg [facility] MD [facility]ell on [facility] BMI 2022-04-06 16:54:21 28.52 kg/m2 [facility] MD P[facility]ell on Cancer Center Body temperature 2022-03-22 14:26:05 36.89 Marly [facility] MD P[facility]ell on Cancer Center Oxygen saturation in 2022-03-22 14:26:05 99 /min [facility] Arterial blood by Deanna parker Pulse oximetry Cancer Center Procedures Procedure Date / Time Performing Clinician Source Performed US BREAST COMPLETE LEFT 2022-04-06 20:45:15 Pierce Kam [facility] Deanna Lecah [facility] er Center US CHEST 2022-04-06 20:45:15 Pierce Kam [facility] o f [place] Hany Canc er Center MAMMO DIGITAL 2022-04-06 19:49:30 Pierce Kam Adams o f [place] DIAGNOSTIC BILATERAL W MD Parnell on Cancer [facility] DEXA BONE MINERAL 2022-03-17 15:17:38 Priscilla Patel [facility] DENSITY BOTH HIPS AND MD Iqra thornton [facility] ALBUMIN LEVEL 2022-03-17 14:06:00 Priscilla Patel [facility] BLOOD UREA NITROGEN 2022-03-17 14:06:00 Priscilla Patel [facility] CALCIUM LEVEL TOTAL 2022-03-17 14:06:00 Priscilla Patel [facility] SERUM CREATININE 2022-03-17 14:06:00 Priscilla Patel [facility] MAGNESIUM LEVEL 2022-03-17 14:06:00 Priscilla Patel [facility] PHOSPHORUS LEVEL 2022-03-17 14:06:00 Priscilla Patel [facility] CTX BETA CROSSLAPS 2022-03-17 14:06:00 Priscilla Patel [facility] [place] [facility] VITAMIN D 25 HYDROXY 2022-03-17 14:06:00 Priscilla Patel [facility] FREE THYROXINE 2022-03-17 14:06:00 Priscilla Patel [facility] THYROID STIMULATING 2022-03-17 14:06:00 Priscilla Patel [facility] HORMONE [facility] SERUM CREATININE 2022-03-17 14:06:00 Priscilla Patel [facility] .GLOMERULAR FILTRATION 2022-03-17 14:06:00 Priscilla Patel [facility] RATE [facility] OSI MAMMO BILATERAL 2021-12-08 19:46:00 Keisha Moreno [facility] ALBUMIN LEVEL 2021-08-16 12:33:00 Priscilla Patel [facility] BLOOD UREA NITROGEN 2021-08-16 12:33:00 Priscilla Patel [facility] CALCIUM LEVEL TOTAL 2021-08-16 12:33:00 Priscilla Patel [facility] SERUM CREATININE 2021-08-16 12:33:00 Priscilla Patel [facility] MAGNESIUM LEVEL 2021-08-16 12:33:00 Priscilla Patel [facility] o [facility] PHOSPHORUS LEVEL 2021-08-16 12:33:00 Priscilla Patel [facility] FREE THYROXINE 2021-08-16 12:33:00 Priscilla Patel Adams o [facility] THYROID STIMULATING 2021-08-16 12:33:00 Priscilla Patel [facility] HORMONE [facility] VITAMIN D 25 HYDROXY 2021-08-16 12:33:00 Priscilla Patel [facility] CTX BETA CROSSLAPS 2021-08-16 12:33:00 Priscilla Patel [facility] [place] [facility] SERUM CREATININE 2021-08-16 12:33:00 Priscilla Patel [facility] .GLOMERULAR FILTRATION 2021-08-16 12:33:00 Priscilla Patel [facility] Plan of Care Planned Activity Planned Date Details Comments Source Future Scheduled Test 2022-04-28 COVID-19 Vaccination [facility] 09:07:34 (3 - Pfizer risk [facility] Cancer series) [code = Center COVID-19 Vaccination (3 - Pfizer risk series)] Future Appointment 2022-08-09 Kyle Gamez MD, [facility] 14:00:00 1515 Vero Salinas [place] [address] Center Encounters Start End Encounter Admission Attending Care Care Encounter Source Date/Time Date/Time Type Type Clinicians Facility Department ID 2021-11-[address] [facility] [id number] Common 11:29:08 Kailey [id number] [facility] 2021-11-16 Outpatient Dieter, STLMLC [facility] [id number] Common 11:16:35 Kailey [id number] [facility] 2022-04-06 2022-04-06 [facility], 1.2.840.1 [id number] Univers 14:44:46 23:59:00 Encounter Miladialucia 82063.1.1 it y of 3.412.2.7 [place] .3.483861 MD Parker8 [facility] 2022-04-06 2022-04-06 [facility], 1.2.840.1 [id number] Univers 12:47:42 14:43:00 Encounter Miladialucia 59698.1.1 it y of 3.412.2.7 [place] .3.727076 MD Rankin [facility] 2022-04-06 2022-04-06 Consult [facility], 1.2.840.1 [id number] Univers 11:20:00 12:41:29 Cesiah 61572.1.1 ity of 3.412.2.7 [place] .3.181556 MD Rankin [facility] 2022-04-06 2022-04-06 Documentat Douglas, 1.2.840.1 [id number] Univers 00:00:00 00:00:00 ion Marlo Callahan 62535.1.1 ity of 3.412.2.7 [place] .3.396867 MD Rankin [facility] 2022-04-06 2022-04-06 Travel 1.2.840.1 1.2.007.467 [id number] Univers 00:00:00 00:00:00 88610.1.1 350.1.13.41 ity of 3.412.2.7 2.2.7.3.698 [place] .3.751385 084.8 MD Rankin [facility] 2022-03-31 2022-03-31 Orders Eddy, 1.2.840.1 [id number] Univers 00:00:00 00:00:00 Only Cesiah 50422.1.1 ity of 3.412.2.7 [place] .3.955622 MD Rankin [facility] 2022-03-31 2022-03-31 Chata BraulioloiMalathia 1.2.840.1 [id number] Univers 00:00:00 00:00:00 Only A. 28515.1.1 ity of 3.412.2.7 [place] .3.459984 MD Rankin [facility] 2022-03-22 2022-03-22 Siddhartha Patel 1.2.840.1 [id number] Univers 09:30:00 09:38:20 Priscilla R 04623.1.1 ity of 3.412.2.7 [place] .3.315321 MD Rankin [facility] 2022-03-22 2022-03-22 Chata BraulioDeya monsivais 1.2.840.1 [id number] Univers 00:00:00 00:00:00 Only A. 31037.1.1 ity of 3.412.2.7 [place] .3.547174 MD Rankin [facility] 2022-03-22 2022-03-22 Travel 1.2.840.1 1.2.750.254 [id number] Univers 00:00:00 00:00:00 31697.1.1 350.1.13.41 ity of 3.412.2.7 2.2.7.3.698 [place] .3.424963 084.8 MD Rankin [facility] 2022-03-21 2022-03-21 Estefanía Cohen 1.2.840.1 [id number] Univers 16:00:00 16:39:21 ne 24029.1.1 ity of 3.412.2.7 [place] .3.109675 MD Rankin [facility] 2022-03-21 2022-03-21 Travel 1.2.840.1 1.2.220.175 [id number] Univers 00:00:00 00:00:00 66178.1.1 350.1.13.41 ity of 3.412.2.7 2.2.7.3.698 [place] .3.287938 084.8 MD Rankin [facility] 2022-03-17 2022-03-17 Heath Patel, 1.2.840.1 [id number] Univers 09:30:00 09:50:00 Procedure Priscilla Faria 59872.1.1 i ty of 3.412.2.7 [place] .3.566070 MD Rankin [facility] 2022-03-17 2022-03-17 Telephone Geovani 1.2.840.1 [id number] Univers 00:00:00 00:00:00 [place] 35859.1.1 ity of 3.412.2.7 [place] .3.181674 MD Rankin [facility] 2022-03-17 2022-03-17 Travel 1.2.840.1 1.2.284.426 [id number] Univers 00:00:00 00:00:00 59011.1.1 350.1.13.41 ity of 3.412.2.7 2.2.7.3.698 [place] .3.200694 084.8 MD Rankin [facility] 2022-03-16 2022-03-16 Orders Jorge, 1.2.840.1 [id number] Univers 00:00:00 00:00:00 Only Priscilla Faria 36778.1.1 ity of 3.412.2.7 [place] .3.345350 MD Rankin [facility] 2022-03-10 2022-03-10 Orders Jane 1.2.840.1 [id number] Univers 00:00:00 00:00:00 Only Jessica Kenny 54562.1.1 i ty of 3.412.2.7 [place] .3.981620 MD Rankin [facility] 2022-02-22 2022-02-22 Orders Jorge, 1.2.840.1 [id number] Univers 00:00:00 00:00:00 Only Priscilla R 42951.1.1 ity of 3.412.2.7 [place] .3.344648 MD Parker8 [facility] 2022-02-14 2022-02-14 Mercdees Patel, 1.2.840.1 [id number] Univers 00:00:00 00:00:00 Priscilla R 66373.1.1 ity of 3.412.2.7 [place] .3.442133 MD Parker8 [facility] 2022-01-30 2022-01-30 Heath Alvares 1.2.840.1 [id number] Univers 20:00:00 20:05:00 Procedure Carlota 07378.1.1 i ty of 3.412.2.7 [place] .3.367787 MD Parker8 [facility] 2022-01-30 2022-01-30 Outpatient JEANNETTE ALVARES [facility] [id number] 13:44:40 13:44:40 CARLOTA Fernando [facility] 2022-01-30 2022-01-30 Chata Rodriguez 1.2.840.1 [id number] Univers 00:00:00 00:00:00 Only Lashonda Wong 33743.1.1 ity of 3.412.2.7 [place] .3.415496 MD Rankin [facility] 2021-10-12 2021-10-12 Jono Rodriguez 1.2.840.1 [id number] Univers 00:00:00 00:00:00 Lashonda Wong 18762.1.1 ity of 3.412.2.7 [place] .3.199153 MD Rankin [facility] 2021-10-08 2021-10-08 Jono Rodriguez 1.2.840.1 [id number] Univers 00:00:00 00:00:00 Lashonda Wong 36680.1.1 ity of 3.412.2.7 [place] .3.367431 MD Rankin [facility] 2021-08-26 2021-08-26 Outpatient JEANNETTE ALVARES [facility] [id number] 16:30:53 16:58:19 CARLOTA Abdullahi [facility] 2021-08-26 2021-08-26 Clinical Carlota Alvares 1.2.840.1 [id number] [facility] [place] [facility] 16:00:00 16:58:19 Support Anaid Bolaños 48092.1.1 ity of 3.412.2.7 [place] .3.721270 MD Parker8 [facility] 2021-08-26 2021-08-26 Travel 1.2.840.1 1.2.160.938 [id number] Univers 00:00:00 00:00:00 25048.1.1 350.1.13.41 ity of 3.412.2.7 2.2.7.3.698 [place] .3.635249 084.8 MD Parker8 [facility] 2021-08-25 2021-08-25 Telephone Surima, 1.2.840.1 [id number] Univers 00:00:00 00:00:00 Elvie 03586.1.1 ity of 3.412.2.7 [place] .3.006435 MD Parker8 [facility] 2021-08-24 2021-08-24 Telephone , 1.2.840.1 [id number] Univers 00:00:00 00:00:00 Priscilla R 86523.1.1 ity of 3.412.2.7 [place] .3.551125 MD Parker8 [facility] 2021-08-17 2021-08-17 Documentat , 1.2.840.1 [id number] Univers 00:00:00 00:00:00 ion Priscilla R 61300.1.1 ity of 3.412.2.7 [place] .3.298859 MD Parker8 [facility] 2021-08-17 2021-08-17 [facility], 1.2.840.1 [id number] Univers 00:00:00 00:00:00 Only Priscilla Faria 85030.1.1 ity of 3.412.2.7 [place] .3.201234 .8 [facility] 2021-08-16 2021-08-16 Outpatient JORGE, [facility] [id number] 07:00:00 23:59:00 PRISCILLA thornton 2021-08-16 2021-08-16 [facility], 1.2.840.1 [id number] Univers 07:00:00 23:59:00 Encounter Priscilla Faria 15622.1.1 i ty of 3.412.2.7 [place] .3.517538 .8 [facility] 2021-08-16 2021-08-16 Travel 1.2.840.1 1.2.231.851 [id number] Univers 00:00:00 00:00:00 53881.1.1 350.1.13.41 ity of 3.412.2.7 2.2.7.3.698 [place] .3.421653 084.8 .8 [facility] 2020-01-27 2020-01-27 Outpatient [facility] [id number] Common 08:25:00 08:25:[address] [facility] [address] [facility] 2020-01-24 2020-01-24 Outpatient [facility] [id number] Common 22:02:00 22:02:[address] [facility] [address] [facility] 2020-01-23 2020-01-23 Outpatient [facility] [id number] Common 11:49:00 11:49:00 t [facility] [address] [facility] 2020-01-23 2020-01-23 Outpatient [facility] [id number] Common 08:45:00 08:45:00 t [facility] [address] [facility] 2020-01-21 2020-01-21 Outpatient [facility] [id number] Common 14:00:00 14:00:00 t [facility] [address] [facility] Results Test Description Test Time Test Comments Results Result Comments Source COMPREHENSIVE METABOLIC PANEL 2022-05-26 07:21:50 Test Item Value Reference Range Interpretation Comme nts GLUCOSE (test code = 2217) 136 MG/DL 70-99 H BUN (test code = 2208) 11 MG/DL 8-23 CREATININE (test code = 0.63 MG/DL 0.60-1.30 2213) eGFR (2020 CKD-EPI) (test 96 ML/MIN/1.73 >60 code = 16936) CALC BUN/CREAT (test code = 17 RATIO 6-28 2234) SODIUM (test code = 223) 142 MEQ/L 133-146 POTASSIUM (test code = 2228) 4.2 MEQ/L 3.5-5.4 CHLORIDE (test code = 2215) 108 MEQ/L 95-107 H CARBON DIOXIDE (test code = 22 MEQ/L 19-31 2205) CALCIUM (test code = 220) 9.5 MG/DL 8.5-10.5 PROTEIN, TOTAL (test code = 6.9 G/DL 6.1-8.3 2228) ALBUMIN (test code = 2201) 4.2 G/DL 3.5-5.2 CALC GLOBULIN (test code = 2.7 G/DL 1.9-3.7 2239) CALC A/G RATIO (test code = 1.6 RATIO 1.0-2.6 2233) BILIRUBIN, TOTAL (test code 0.6 MG/DL See_Comment [Automated message] The = 2206) system which ge nerated this result transmit marshal reference range: <=1.2. T he reference range was not u sed to interpret this result as normal/abnormal . ALKALINE PHOSPHATASE (test 72 U/L 40-142 code = 2204) AST (test code = 2218) 20 U/L 9-40 ALT (test code = 2219) 15 U/L 5-40 LIPID [id number] 07:21:50 Test Item Value Reference Range Interpretation Comments CHOLESTEROL (test 207 MG/DL <200 H code = 2210) TRIGLYCERIDES (test 130 MG/DL <150 code = 2232) HDL CHOLESTEROL (test 65 MG/DL >39 code = 2220) CALC LDL CHOL (test 117 MG/DL <100 H NOTE: C ALCULATED LDL code = 2237) IS BASED ON RONNA-BIGGS METHOD WHICHINCLUDES ADJUSTABLE TRIGLYCERIDE:VL DL CHOLESTEROL RAT IO.THIS FACTOR VARIES B Y MEASURED TRIGLY CERIDE AND NON-HDLCHOL ESTEROL CONCENTRATIONS WITH INCREASED CALCU LATED LDL SEENIN HIGH ER TRIGLYCERIDE OR LOWER NON-HDL SPECIME NS. FOR MOREINFORMATION , SEE CLIENT ANNOUNCE MENT AT [email or web address] RISK RATIO LDL/HDL 1.80 RATIO <3.22 (test code = 2238) HEMOGLOBIN [id number] 03:07:58 Test Item Value Reference Range Interpretation Comments HEMOGLOBIN A1c (test 7.0 % 4.2-5.6 H AMERIC AN DIABETES code = 68439) ASSOCIATION IDELINES FOR HGB A1C: PREDIABETES/INC REASED RISK . . . . . . . 5.7 -6.4% DIAGNOSIS OF DI ABETES . . . . . . . . . >=6 .5% WITH CONFIRMATION OR APPROPRIATE SYMPTOMS NOTE: ASSAY MAY BE AFFECTED BY HEMOGLOBINOPATH IES (SICKLE CELL ANEMIA, S- C DISEASE, OTHERS) OR JOAN FICIALLY LOWERED BY DECR EASED RED CELL SURVIVAL ( HEMOLYTIC ANEMIAS, BLOOD LOSS, ETC.). CONSIDER ALTERN ATE TESTING OR LABORATORY C ONSULTATION. CBC W/AUTO DIFF WITH [id number] 02:59:06 Test Item Value Reference Range Interpretation Comments WBC (test code = 6.9 K/UL 3.5-11.0 1001) RBC (test code = 4.65 M/UL 3.80-5.40 1002) HEMOGLOBIN (test 14.1 G/DL 11.5-15.5 code = 1003) HEMATOCRIT (test 41.0 % 34.0-45.0 code = 1004) MCV (test code = 88.2 fL 80.0-99.0 1005) MCH (test code = 30.3 PG 25.0-33.0 1006) MCHC (test code = 34.4 G/DL 31.0-36.0 1007) RDW (test code = 13.4 % 11.5-15.0 1038) NEUTROPHILS (test 50.6 % code = 1008) LYMPHOCYTES (test 38.9 % code = 1010) MONOCYTES (test code 6.9 % = 1011) EOSINOPHILS (test 2.6 % code = 1012) BASOPHILS (test code 0.7 % = 1013) IMMATURE 0.3 % GRANULOCYTES (test code = 1036) NUCLEATED RBCS (test 0.0 /100 See_Comment [Autom ated message] code = 1065) WBC'S The system Rapt[employer] generated this result transmitted ref erence range: 0.0. The reference range was not used to int erpret this result as normal/abnormal . PLATELET COUNT (test 211 K/UL 130-400 code = 1015) ABSOLUTE NEUTROPHILS 3.47 K/UL 1.50-7.50 (test code = 1066) ABSOLUTE LYMPHOCYTES 2.67 K/UL 1.00-4.00 (test code = 1067) ABSOLUTE MONOCYTES 0.47 K/UL 0.20-1.00 (test code = 1068) ABSOLUTE EOSINOPHILS 0.18 K/UL 0.00-0.50 (test code = 1040) ABSOLUTE BASOPHILS 0.05 K/UL 0.00-0.20 (test code = 1069) ABS IMMATURE 0.02 K/UL 0.00-0.10 GRANULOCYTES (test code = 1020) ABS NUCLEATED RBCS 0.00 K/UL 0.00-0.11 UNLESS O THERWISE (test code = 30875) INDICATE D, ALL TESTING PERFORM [facility], [facility]. [address] [place] [id number] [facility] DIRECTOR: DOMINIK ARCHER M.D. CLIA NUMBER [id number] CAP ACCREDITATION N O. [id number] Mammography Digital Diagnostic Bilateral with [id number] 20:18:30 Test Item Value Reference Range Interpretation Comments Radiology Study observation (narrative) (test code = 24674-4) IMP (test code = IMP) 1: Stable post surgical scar in the left breast upper hemisphere at 12 o'clocklocated 5 centimeters from the nipple is benign. 2: Area in the left breast requires additional imaging evaluation. Anultrasound exam is recommended. I personally reviewed these image(s) along with the resident's/fellow'sinter pretations, certify that if a procedure was performed I was physicallypresent, and agree with the final report. BI-RADS Category 0:Incomplete: Needs Additional Imaging Evaluation PXN (test code = PXN) Johnny Menendez MD - 04/06/2022 CLINICAL INDICATION:Patient is a 71 year old female and is seen for breast tenderness MAMMO DIGITAL DIAGNOSTIC BILATERAL W TOMOCOMPARISON:The present examination has been compared to prior imaging studies performed atan outside location on 12/08/2021, and at [facility] 02/22/2017, 12/04/2017, 12/19/2018 and 12/16/2019. FINDINGS:There are scattered areas of fibroglandular density. 1: There is a stable post surgical scar with associated post radiation changeand surgical clips in the left breast upper hemisphere at 12 o'clock located 5centimeters from the nipple. The asymmetry noted on prior outside mammogram inthe posterior third of the left breast on CC view at the level of the nipple isno longer visible. 2: There is no radiographic abnormality in the region of the pain in the leftbreast. In the right breast, no dominant mass, distortion, or suspicious calcificationsare identified. Tomosynthesis performed in CC and MLO projections. IMPRESSION:1: Stable post surgical scar in the left breast upper hemisphere at 12 o'clocklocated 5 centimeters from the nipple is benign. 2: Area in the left breast requires additional imaging evaluation. Anultrasound exam is recommended. I personally reviewed these image(s) along with the resident's/fellow'sinter pretations, certify that if a procedure was performed I was physicallypresent, and agree with the final report. BI-RADS Category 0:Incomplete: Needs Additional Imaging Evaluation Lab Interpretation Abnormal (test code = 30357-2) [facility]
[2022-05-31 00:04] LABS: Protime INR 0.94
[2022-05-31 00:06] LABS: Absolute Lymphocytes (CBC) 2.8 K/uL (0.7-4.9); Lymphocytes % 33.3 % (15.3-44.8); MCV 90.2 fL (80-100); MPV 9.5 fL (7.6-11.3); RBC Red Blood Cell Count 4.54 M/uL (3.86-4.86)
[2022-05-31 00:15] LABS: ALT/SGPT 19 U/L (12-78); AST/SGOT 12 U/L (15-37); Albumin 3.2 g/dL (3.4-5.0); Alkaline Phosphatase 73 U/L (45-117); BUN Blood Urea Nitrogen 12 mg/dL (7-18); Bicarbonate 28 mmol/L (21-32); Bilirubin Direct < 0.1 mg/dL (0-0.2); Bilirubin Total 0.3 mg/dL (0.2-1.0); CKMB Creatine Kinase MB < 1.0 ng/mL (1.0-3.6); Creatine Phosphokinase 37 U/L (26-192); Glomerular Filtration Rate 74 ml/min (=/>90); Glucose Level 146 mg/dL (74-106); Lipase 66 U/L (73-393); Magnesium 2.2 mg/dL (1.8-2.4); Sodium Level 139 mmol/L (136-145)
[2022-05-31 00:34] LABS: Urine Blood Negative (Negative); Urine Glucose Negative (Negative); Urine Protein Negative (Negative); Urine Specific Gravity 1.025 (1.005-1.030)
--- NOTE | 2022-05-31 00:37 | ER ---
Nurse's Notes [facility] Name: Valeria Witt Age: 71 yrs Sex: Female : 1950 Arrival Date: 05/30/2022 Time: 22:53 Bed 20 Private MD: Diagnosis: Dizziness and giddiness Presentation: 05/30 23:09 Chief complaint: Patient states: States blood sugar was 190 on Sunday, states doctor ll3 changed DM meds but has not picked them up yet, c/o dizziness and cant sleep. Coronavirus screen: Vaccine status: Patient reports receiving the 2nd dose of the covid vaccine. At this time, the client does not indicate any symptoms associated with coronavirus-19. Ebola Screen: No symptoms or risks identified at this time. Initial Sepsis Screen: Does the patient meet any 2 criteria? No. Patient's initial sepsis screen is negative. Does the patient have a suspected source of infection? No. Patient's initial sepsis screen is negative. Risk Assessment: Do you want to hurt yourself or someone else? Patient reports no desire to harm self or others. Onset of symptoms was May 30, 2022. 23:09 Method Of Arrival: Ambulatory ll3 23:09 Acuity: YAMILET 3 ll3 Triage Assessment: 23:11 General: Appears uncomfortable, Behavior is calm, cooperative. Pain: Denies pain. ll3 Neuro: Level of Consciousness is awake, alert, obeys commands, Oriented to person, place, time, situation, Reports dizziness. Respiratory: Respiratory effort is even, unlabored, Respiratory pattern is regular, symmetrical. Derm: Skin is pink, warm \T\ dry. Historical: - Home Meds: 23:11 pravastatin Oral [Active]; Metformin Oral [Active]; ll3 - PMHx: 23:11 breast CA; Diabetes - IDDM; Hyperlipidemia; ll3 - Immunization history:: Client reports receiving the 2nd dose of the Covid vaccine. - Social history:: Smoking status: Patient denies any tobacco usage or history of. Screenin:21 Abuse screen: Denies threats or abuse. Denies injuries from another. Nutritional sm5 screening: No deficits noted. Tuberculosis screening: No symptoms or risk factors identified. Fall Risk None identified. Assessment: 05/31 00:44 General: Appears in no apparent distress. Behavior is cooperative. Pain: Denies pain. sm5 Neuro: Level of Consciousness is awake, alert, obeys commands, Oriented to person, place, time, situation, Reports dizziness. Cardiovascular: Capillary refill < 3 seconds Patient's skin is warm and dry. Rhythm is sinus rhythm with right bundle branch block. Respiratory: Airway is patent Trachea midline Respiratory effort is even, unlabored. Vital Signs: 05/30 23:09 BP 137 / 89; Pulse 77; Resp 17; Temp 98.1(O); Pulse Ox 96% on R/A; Weight 71.21 kg (R); ll3 Height 5 ft. 1 in. (154.94 cm) (R); Pain 0/10; 05/31 00:43 BP 115 / 59; Pulse 69; Resp 18; Pulse Ox 97% on R/A; sm5 05/30 23:09 Body Mass Index 29.66 (71.21 kg, 154.94 cm) ll3 ED Course: 05/30 22:53 Patient arrived in ED. ja2 22:53 Jessica Giang FNP-C is [facility]. kb 22:53 Mg Roche MD is Attending Physician. kb 23:00 Emilee Baez, UCHE is Primary Nurse. sm5 23:11 Triage completed. ll3 23:11 Arm band placed on left wrist. Patient placed in an exam room, on a stretcher, on pulse ll3 oximetry. 23:21 Patient has correct armband on for positive identification. Bed in low position. Call sm5 light in reach. Side rails up X2. Client placed on continuous cardiac and pulse oximetry monitoring. NIBP monitoring applied. 23:21 Inserted saline lock: 20 gauge in right antecubital area, using aseptic technique. 5 Blood collected. 05/31 00:44 No provider procedures requiring assistance completed. IV discontinued, intact, sm5 bleeding controlled, No redness/swelling at site. Pressure dressing applied. Administered Medications: No medications were administered Medication: 05/30 23:21 VIS not applicable for this client. 5 Point of Care Testing: Blood Glucose: 23: Blood Glucose: 129 mg/dL; ll3 Ranges: Outcome: 05/31 00:37 Discharge ordered by . kelvin 00:45 Discharged to home ambulatory. 5 00:45 Condition: stable 00:45 Discharge instructions given to patient, Instructed on discharge instructions, follow up and referral plans. Demonstrated understanding of instructions, follow-up care. 00:45 Patient left the ED. sm5 Signatures: Jessica Giang, LEEROY PAVON-Laura Orantes Lynsea, RN RN ll3 Emilee Baez RN RN sm5
--- NOTE | 2022-05-31 00:37 | EDPHYS ---
Physician Documentation [facility] Name: Valeria Witt Age: 71 yrs Sex: Female : 1950 Arrival Date: 05/30/2022 Time: 22:53 Bed 20 Private MD: ED Physician Mg Roche HPI: 05/30 23:41 This 71 yrs old Female presents to ER via Ambulatory with complaints of High kb Blood Sugar. 23:49 The patient has experienced near-syncope, felt dizzy. Onset: The symptoms/episode kb began/occurred last week, and became persistent today. Duration: The patient has had multiple episodes. Context: the episode(s) was witnessed, by no one, occurred at home, Just prior to the episode the patient experienced no apparent symptoms. Associated injury: The patient did not suffer any apparent associated injury. Associated signs and symptoms: Pertinent positives: dizziness, headache, Pertinent negatives: abdominal pain, chest pain, numbness, palpitations. Current symptoms: headache, that is mild. The patient has not experienced similar symptoms in the past. The patient has been recently seen by a physician:. Pt reports she has high blood sugar and high cholesterol. c/o headache and dizziness for a week. Went to [facility] week for this, had blood work drawn and received results today. States they told her that she had high blood sugar and high cholesterol. Pt also reports she had an EKG that was abnormal so she is waiting for them to schedule an appt with cardiology for her. States she couldn't sleep tonight so she decided to come in.. Historical: - Home Meds: 23:11 pravastatin Oral [Active]; Metformin Oral [Active]; ll3 - PMHx: 23:11 breast CA; Diabetes - IDDM; Hyperlipidemia; ll3 - Immunization history:: Client reports receiving the 2nd dose of the Covid vaccine. - Social history:: Smoking status: Patient denies any tobacco usage or history of. ROS: 23:43 Constitutional: Negative for fever, chills, and weight loss. kb 23:43 Neuro: Positive for dizziness, near syncope. 23:43 Psych: Positive for insomnia. 23:43 All other systems are negative. Exam: 23:25 Constitutional: This is a well developed, well nourished patient who is awake, alert, kb and in no acute distress. Head/Face: Normocephalic, atraumatic. ENT: Moist Mucous membranes Cardiovascular: Regular rate and rhythm with a normal S1 and S2. No gallops, murmurs, or rubs. No pulse deficits. Respiratory: Respirations even and unlabored. No increased work of breathing. Talking in full sentences Abdomen/GI: Soft, non-tender. No distention Skin: Warm, dry with normal turgor. Normal color. MS/ Extremity: Pulses equal, no cyanosis. Neurovascular intact. Full, normal range of motion. Neuro: Awake and alert, GCS 15, oriented to person, place, time, and situation. Moves all extremities. Normal gait. Psych: Awake, alert, with orientation to person, place and time. Behavior, mood, and affect are within normal limits. 23:25 ECG was reviewed by the Attending Physician. Vital Signs: 23:09 BP 137 / 89; Pulse 77; Resp 17; Temp 98.1(O); Pulse Ox 96% on R/A; Weight 71.21 kg (R); ll3 Height 5 ft. 1 in. (154.94 cm) (R); Pain 0/10; 08 00:43 BP 115 / 59; Pulse 69; Resp 18; Pulse Ox 97% on R/A; sm5 05/30 23:09 Body Mass Index 29.66 (71.21 kg, 154.94 cm) ll3 MDM: 05/30 22:54 Patient medically screened. kb 23:25 Data reviewed: vital signs, nurses notes. Data interpreted: Pulse oximetry: on room air kb is 96 %. Interpretation: normal. 05/31 00:23 Counseling: I had a detailed discussion with the patient and/or guardian regarding: the kb historical points, exam findings, and any diagnostic results supporting the discharge/admit diagnosis, lab results, the need for outpatient follow up, a family practitioner, to return to the emergency department if symptoms worsen or persist or if there are any questions or concerns that arise at home. 05/30 23:01 Order name: Basic Metabolic Panel; Complete Time: 00:17 kb 05/30 23: Order name: CBC with Diff; Complete Time: 00:07 kb 05/30 23:01 Order name: CPK; Complete Time: 00:17 kb 05/30 23: Order name: Ckmb; Complete Time: 00:17 kb 05/30 23:01 Order name: Hepatic Function; Complete Time: 00:17 kb 05/30 23:01 Order name: Lipase; Complete Time: 00:17 kb 05/30 23: Order name: Magnesium; Complete Time: 00:17 kb 05/30 23:01 Order name: Protime (+inr); Complete Time: 00:07 kb 08 23:01 Order name: Ptt, Activated; Complete Time: 00:07 kb 05/30 23: Order name: EKG; Complete Time: 23:02 kb 05/30 23: Order name: Cardiac monitoring; Complete Time: 23:21 kb 05/30 23:01 Order name: EKG - Nurse/Tech; Complete Time: 23:21 kb 05/30 23:20 Order name: Glucose, Ancillary Testing; Complete Time: 23:24 EDMS 08 00:34 Order name: Urine Dipstick-Ancillary; Complete Time: 00:36 EDMS 08 23:01 Order name: IV Saline Lock; Complete Time: 23:21 kb 05/30 23:01 Order name: Labs collected and sent; Complete Time: 23:21 kb 05/30 23:01 Order name: NPO; Complete Time: 23:21 kb 05/30 23:01 Order name: O2 Per Protocol; Complete Time: 23:21 kb 05/30 23:01 Order name: O2 Sat Monitoring; Complete Time: 23:21 kb 05/30 23:01 Order name: Urine Dipstick-Ancillary (obtain specimen); Complete Time: 00:33 kb EC/09 23:25 Rate is 72 beats/min. Rhythm is regular. Right axis deviation noted. NV interval is kb normal at 178 msec. QRS interval is normal at 134 msec. QT interval is normal at 466 msec. Administered Medications: No medications were administered Point of Care Testing: Blood Glucose: 23:09 Blood Glucose: 129 mg/dL; ll3 Ranges: Critical Glucose Levels:Adult <50 mg/dl or >400 mg/dl <40 mg/dl or >180 mg/dl Disposition: 05/31 01:37 Co-signature as Attending Physician, Mg Roche MD. rn Disposition Summary: 05/31/22 00:37 Discharge Ordered Location: Home kb Condition: Stable kb Diagnosis - Dizziness and giddiness kb Followup: kb - With: Emergency Department - When: As needed - Reason: Worsening of condition Followup: kb - With: Private Physician - When: 2 - 3 days - Reason: Recheck today's complaints, Continuance of care, Re-evaluation by your physician Discharge Instructions: - Discharge Summary Sheet kb - Near-Syncope, [id number] kb - Dizziness, [id number] kb Forms: - Medication Reconciliation Form kb - Thank You Letter kb - Antibiotic Education kb - Prescription Opioid Use kb Signatures: Dispatcher [employer] EDMS Jessica Giang, WORKERS' COMPENSATION MAGISTRATE-C WORKERS' COMPENSATION MAGISTRATE-Mg Sanchez MD MD rn Loubet, Lynsea RN RN ll3
[2022-05-31 01:57] VITALS: TEMP 98.1
[2022-05-31 01:59] VITALS: BP 115/59; O2SAT 97
--- NOTE | 2022-05-31 07:53 | EKG ---
Test Date: 2022-05-30 Test Time: 23:14:33 Residential Collections: MATT MEASUREMENT RESULTS: Intervals: Rate: 72 DE: 178 QRSD: 134 QT: 426 QTc: 466 [place]: P: 57 DE: 178 QRS: 99 T: 28 INTERPRETIVE STATEMENTS: Normal sinus rhythm Right bundle branch block Abnormal ECG Compared to ECG 05/14/2020 16:31:24 Sinus arrhythmia no longer present Electronically Signed On 05-31-22 07:52:23 CDT by García Valiente
== END 2022-05-31 00:45 | disposition home or self-care (01) ==
LOC: ER 22:49
DX: R42 Dizziness and giddiness (principal); R55 Syncope and collapse; E11.9 Type 2 diabetes mellitus without complications; E78.5 Hyperlipidemia, unspecified; Z85.3 Personal history of malignant neoplasm of breast
CPT/HCPCS: 36415; 80048; 80076; 81003; 82550; 82553; 82947; 83690; 83735; 85025; 85610; 85730; 93005; 99284

== ENCOUNTER 2024-11-08 12:05 | Emergency (ER) | payer OTHER ==
--- OUTSIDE RECORDS SUMMARY | 2024-11-08 12:09 | XMS REPORT | Clinical Summary ---
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 Name Role Phone Erika Raygoza MD Unavailable Unavailable Erika Raygoza MD Unavailable Unavailable Myrna Whiting DDS Unavailable Pierce Kam APRN Unavailable [phone] Estefanía Martínez MD Unavailable Mike Webster MD Unavailable [phone] Emilia Russo MD Unavailable [phone] Ivelisse Jacobson MD Unavailable [phone] Eitan Harvey MD Unavailable Kyle Gamez MD Unavailable Sher Washington MD Unavailable [phone] Sher Washington MD Unavailable [phone] Physician, Outside Primary Care Provider Unavail able Allergies No known active allergies Medications * This document contains information received from the source organization and may not represent a complete record from that organization. anastrozole (ARIMIDEX) 1 mg tabletIndicati ons:Personal history of malignant neoplasm of breast Take 1 tablet by mouth once daily 90 tablet 04/06/20 21 Active Additional Information Patient not taking.Reason: No longer taking, Informant: Self, Reported on 03/27/2024 metFORMIN (GLUCOPHAGE) 500 mg tablet Take 1 tablet (500 mg) by mouth 2 (two) times a day with meals. 10/13/20 22 Active pravastatin (PRAVACHOL) 40 mg tablet Take 1 tablet (40 mg) by mouth daily. Active Farxiga 5 mg tablet Take 1 tablet (5 mg) by mouth daily. 12/26/19 24 Active denosumab (PROLIA) 60 mg/mL syrg injection Inject 1 mL (60 mg) under the skin every 6 (six) months. 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 02/23/2017 Cancer Staging:Clinical stage from 02/23/2017:Stage IA(T1c, N0, M0) - Signed by Haroldo Bocanegra MD on 02/23/2017 Pathologic stage from 04/12/2017:Stage IA(T1b, N0, cM0) - Signed by Haroldo Bocanegra MD on 04/27/2017 Cervical dysplasia Personal history of therapeutic radiation exposu re Encounters Date Type Department Care Team Description 06/03/2024 Telephone [facility] [address] [place] [address], 6th [place] [address] Elvie Bustillos RN 05/29/2024 Telephone Endocrine Center [address] [place] [address], 6th [place] [address] Elvie Bustillos RN 04/10/2024 Telephone [facility] [address] [place] [address], 2nd [place] [address] Sandra Devi RN 03/27/2024 11:30 AM CDT Follow-Up Endocrine Center [address] [place] [address], 6th [place] [address] Estefanía Martínez MD Osteoporosis 03/27/2024 8:40 AM CDT - 03/27/2024 11:59 PM CDT Hospital Encounter Nuclear Medicine [address] [place] [address], 6th Floor, [place] [address] Laura Fuller PA Osteoporosis Discharge Disposition: Home 03/27/2024 8:00 AM CDT - 03/27/2024 8:39 AM CDT Hospital Encounter [facility] [address] [place] [address] Laura Fuller PA Osteoporosis Discharge Disposition: Home 03/27/2024 Travel 03/19/2024 10:25 AM CDT Ancillary Procedure Cancer Prevention Center [address] [facility], 2nd [place] [address] Breast cancer screening after 11/09/2023 Immunizations Name Administration Dates Next Due Influenza, injectable, quadrivalent, preservativ e free 08/26/2019 Pneumococcal Conjugate 13-Valent 08/26/2019 Surgical History Surgery Date Site/Laterality Comments APPENDECTOMY 11/25/2011 COLONOSCOPY 10/22/2017 - 10/21/2018 UPPER GASTROINTESTINAL ENDOSCOPY 05/30/2019 BUNIONECTOMY 10/22/2000 - 10/21/2001 Bilateral AK MASTECTOMY PARTIAL 04/12/2017 Breast/Left Procedure: SEED LOC, SEGMENTAL MASTECTOMY - ; Surgeon: Carl Alvares MD; Location: [facility]; Service: BREAST AK INTRAOP SENTINEL LYMPH NODE ID W/DYE INJECTION 04/12/2017 Axilla/Left Procedure: INTRAOPERATIVE LYMPHATIC MAPPING; Surgeon: Carl Alvares MD; Location: [facility]; Service: BREAST AK BX/EXC LYMPH NODE OPEN DEEP AXILLARY NODE 04/12/2017 Axilla/Left Procedure: SENTINEL NODE BIOPSY - AXILLA; Surgeon: Carl Alvares MD; Location: [facility]; Service: BREAST EXCISION OF CERVIX USING LOOP ELECTRODE 1979, 05/26/16 Medical History Medical History Date Comments Hyperlipidemia 11/15/2015 Taking medicatio n -Prevastatin 40mlg Nodule in breast 02/08/2017 Fatty liver Ulcer Diverticulitis Polyp 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 02/23/2017 Osteoporosis 05/03/2017 Cervical dysplasia Personal history of therapeu tic radiation exposure Personal history of peptic ulcer disease 06/07/20 17 Broken tooth without complication 06/07/2017 Cervical intraepithelial farideh plasia grade 1 Family History Medical History Relation Name Comments Liver cancer Maternal Grandmother Liver Colon cancer Sister Colon Other Neg Hx parental hip fr acture Relation Name Status Comments Maternal Grandmother Sister Alive Social History Tobacco Use Types Packs/Day Years Used Date Smoking Tobacco: Never Smokeless Tobacco: Never Alcohol Use Standard Drinks/Week Comments No 0 (1 standard drink = 0.6 oz pur e alcohol) Comments No Sex and Gender Information Value Date Recorded Sex Assigned at Female 08/26/2020 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 Legal Sex Female 12:38 PM CDT Gender Identity Female 08/26/2020 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 Sexual Orientation Not on file Occupation Industry Job Start Date Job End Date Retired Not on file Not on file Not on file Obstetrics History Para Term AB IAB SAB Ectopic Multiple Livin g Live Births 3 3 3 0 0 3 Date Outcome GA Total Labor Labor/2nd/3rd Weight Sex Type Anes PTL Steph A1 A5 Name Clin Term Term Term Comments Menarche 14 Parity 21 Breast feed none OCP none Menopause 40 natural HRT few days Last Filed Vital Signs Vital Sign Reading Time Taken Comments Blood Pressure 109/68 03/27/2024 10:57 AM CDT Pulse 75 03/27/2024 10:57 AM CDT Temperature 36.7 C (98.1 F) 03/27/2024 10:57 AM C DT Respiratory Rate 15 03/27/2024 10:57 AM CDT Oxygen Saturation 95% 03/27/2024 10:57 AM CDT Inhaled Oxygen Concentration - - Weight 67 kg (147 lb 11.3 oz) 03/27/2024 9:33 AM CDT Height 154.9 cm (5' 1") 03/27/2024 9:33 AM CDT Body Mass Index 27.91 03/27/2024 9:33 AM CDT Plan of Treatment Upcoming Encounters Date Type Department Care Team (Late st Contact Info) Description 03/31/2025 8:15 AM CDT Appointment Diagnostic Laboratory Center [address] [place] [address] Laura Fuller PA [address] [place], [place] [id number] [email or web address] 03/31/2025 9:10 AM CDT Appointment Nuclear Medicine [address] [facility], 6th Floor, [place] [address] Laura Fuller PA [address] [place] [address] [email or web address] 03/31/2025 11:00 AM CDT Follow-Up Endocrine Center [address] [facility], 6th Floor Elevator [address] [place], [place] [id number] Estefanía Martínez MD [address] [place] [address] [email or web address] Maintenance Due Date Last Done Comments COVID-19 Vaccine ( season) 2024 12/28/2023, 01/08/2021, 12/18/2020 Influenza Vaccine (#1) 2024 4, 07/04/2023, 08/26/2019 Pneumococcal Vaccine: 65+ Years Completed 4, 08/26/2019 Procedures Procedure Name Priority Date/Time Associated Diagnosis Comments DEXA BONE MINERAL DENSITY BOTH HIPS AND SPINE Routine 03/27/2024 9:55 AM CDT Osteoporosis FREE THYROXINE Routine 03/27/2024 8:50 AM CDT Osteoporosis MAGNESIUM LEVEL Routine 03/27/2024 8:50 AM CDT Osteoporosis THYROID STIMULATING HORMONE Routine 03/27/2024 8:50 AM CDT Osteoporosis VITAMIN D 25 HYDROXY LEVEL Routine 03/27/2024 8:50 AM CDT Osteoporosis PHOSPHORUS LEVEL Routine 03/27/2024 8:50 AM CDT Osteoporosis CTX BETA CROSSLAPS Routine 03/27/2024 8: 50 AM CDT Osteoporosis CREATININE Routine 03/27/2024 8:50 AM CDT Osteoporosis CALCIUM LEVEL Routine 03/27/2024 8:50 AM CDT Osteoporosis BLOOD UREA NITROGEN Routine 03/27/2024 8 :50 AM CDT Osteoporosis ALBUMIN LEVEL Routine 03/27/2024 8:50 AM CDT Osteoporosis MAMMO DIGITAL SCREENING BILATERAL W MUKESH Routine 03/19/2024 11:05 AM CDT Breast cancer screening after 11/09/2023 Results * NM Bone Mineral Density Both Hips and Spine (03/27/2024 9:55 AM CDT) Anatomical Region Laterality Modality Spine Nuclear Medicine 03/27/2024 10:0 0 AM CDT Impressions 03/27/2024 11:04 AM CDT 1. Osteopenia, based on measurements of the lumbar spine and right neck. 2. Statistically significant decrease in bone mineral density of the lumbar spine and bilateral total hips. I personally reviewed these image(s) along with the resident's/fellow's interpretations, certify that if a procedure was performed I was physically present, and agree with the final report. Narrative 03/27/2024 11:04 AM CDT FULL RESULT: Examination: Bone Mineral Density (DXA), 03/27/2024 Clinical History: 73-year-old postmenopausal female treated for breast cancer, on hormonal therapy. Indication: Assessment of bone mineral density.. Comparison: Bone mineral density study 03/27/2023. Technique: Bone mineral density was obtained using Hologic dual-energy X-ray absorptiometry. The lumbar spine and bilateral hips are evaluated. Findings: The findings are provided in the below table(s). Bone Density: Region Exam Date BMD T- Z- g/cm2 Score Score AP Spine (L1-L4) 03/27/2024 0.806 -2.2 0.0 Femoral Neck (Left) 03/27/2024 0.751 -1.0 0.8 Total Hip (Left) 03/27/2024 0.838 -0.9 0.6 Femoral Neck (Right) 03/27/2024 0.675 -1.7 0.2 Total Hip (Right) 03/27/2024 0.854 -0.8 0.8 For postmenopausal women and men age 50 and over, the World Health Organization criteria for BMD interpretation classify patients as: Normal (T-score at or above -1.0), Osteopenia (T-score between -1.0 and -2.5), or Osteoporosis (T-score at or below -2.5). Previous Exams: Region Exam Age BMD T-score BMD Change vs Date g/cm2 Baseline Previous AP Spine (L1-L4) 03/27/2024 73 0.806 -2.2 3.9%* -3.9%* 03/27/2023 72 0.839 -1.9 8.1%* 3.2% 03/17/2022 71 0.813 -2.1 4.7%* -1.2% 08/10/2020 69 0.823 -2.0 6.0%* -0.6% 07/22/2019 68 0.828 -2.0 6.7%* 7.3%* 07/18/2018 67 0.772 -2.5 -0.5% -0.5% 05/03/2017 66 0.776 -2.5 Total Hip(Left) 03/27/2024 73 0.838 -0.9 -3.2% -6.9%* 03/27/2023 72 0.900 -0.5 4.1%* 3.4% 03/17/2022 71 0.871 -0.7 0.7% 0.7% 08/10/2020 69 0.865 -0.7 0.0% -1.0% 07/22/2019 68 0.874 -0.7 1.0% 2.4% 07/18/2018 67 0.853 -0.8 -1.3% -1.3% 05/03/2017 66 0.865 -0.7 Femoral Neck(Left) 03/27/2024 73 0.751 -1.0 -4.0% 2.7% 03/27/2023 72 0.731 -1.2 -6.6%* -5.1% 03/17/2022 71 0.770 -0.9 -1.6% 7.7%* 08/10/2020 69 0.715 -1.3 -8.6%* -3.0% 07/22/2019 68 0.737 -1.2 -5.9%* 1.6% 07/18/2018 67 0.726 -1.3 -7.3%* -7.3%* 05/03/2017 66 0.783 -0.8 Total Hip(Right) 03/27/2024 73 0.854 -0.8 -0.8% -6.1%* 03/27/2023 72 0.909 -0.4 5.6%* 1.9% 03/17/2022 71 0.892 -0.5 3.6% 2.2% 08/10/2020 69 0.873 -0.7 1.4% -4.2%* 07/22/2019 68 0.912 -0.4 5.9%* 2.4% 07/18/2018 67 0.890 -0.5 3.4% 3.4% 05/03/2017 66 0.861 -0.8 Femoral Neck(Right) 03/27/2024 73 0.675 -1.7 -7.2%* -4.8% 03/27/2023 72 0.709 -1.4 -2.5% -5.1% 03/17/2022 71 0.748 -1.1 2.8% 4.8% 08/10/2020 69 0.713 -1.4 -2.0% -2.8% 07/22/2019 68 0.734 -1.2 0.8% 4.7% 07/18/2018 67 0.701 -1.5 -3.7% -3.7% 05/03/2017 66 0.727 -1.2 *Denotes significance at 95% confidence level, site specific LSC for AP Spine = 0.029 g/cm2, site specific LSC for Total Hip = 0.033 g/cm2, site specific LSC for Femoral Neck = 0.045 g/cm2, LSC for 10/24 Forearm = 0.023 g/cm2 Procedure Note Criss Peralta MD - 03/28/2024 FULL RESULT: Examination: Bone Mineral Density (DXA), 03/27/2024 Clinical History: 73-year-old postmenopausal female treated for breastcancer, on hormonal therapy. Indication: Assessment of bone mineral density.. Comparison: Bone mineral density study 03/27/2023. Technique: Bone mineral density was obtained using Hologic [id number]-gte absorptiometry. The lumbar spine and bilateral hips are evaluated. Findings: The findings are provided in the below table(s). Bone Density: Region Exam Date BMD T- Z- g/cm2 Score Score AP Spine (L1-L4) 03/27/2024 0.806 -2.2 0.0 Femoral Neck (Left) 03/27/2024 0.751 -1.0 0.8 Total Hip (Left) 03/27/2024 0.838 -0.9 0.6 Femoral Neck (Right) 03/27/2024 0.675 -1.7 0.2 Total Hip (Right) 03/27/2024 0.854 -0.8 0.8 For postmenopausal women and men age 50 and over, the World Health Organization criteria for BMD interpretation classify patients as: Normal (T-score at or above -1.0), Osteopenia (T-score between -1.0 and -2.5), or Osteoporosis (T-score at or below -2.5). Previous Exams: Region Exam Age BMD T-score BMD Change vs Date g/cm2 Baseline Previous AP Spine (L1-L4) 03/27/2024 73 0.806 -2.2 3.9%* -3.9%* 03/27/2023 72 0.839 -1.9 8.1%* 3.2% 03/17/2022 71 0.813 -2.1 4.7%* -1.2% 08/10/2020 69 0.823 -2.0 6.0%* -0.6% 07/22/2019 68 0.828 -2.0 6.7%* 7.3%* 07/18/2018 67 0.772 -2.5 -0.5% -0.5% 05/03/2017 66 0.776 -2.5 Total Hip(Left) 03/27/2024 73 0.838 -0.9 -3.2% -6.9%* 03/27/2023 72 0.900 -0.5 4.1%* 3.4% 03/17/2022 71 0.871 -0.7 0.7% 0.7% 08/10/2020 69 0.865 -0.7 0.0% -1.0% 07/22/2019 68 0.874 -0.7 1.0% 2.4% 07/18/2018 67 0.853 -0.8 -1.3% -1.3% 05/03/2017 66 0.865 -0.7 Femoral Neck(Left) 03/27/2024 73 0.751 -1.0 -4.0% 2.7% 03/27/2023 72 0.731 -1.2 -6.6%* -5.1% 03/17/2022 71 0.770 -0.9 -1.6% 7.7%* 08/10/2020 69 0.715 -1.3 -8.6%* -3.0% 07/22/2019 68 0.737 -1.2 -5.9%* 1.6% 07/18/2018 67 0.726 -1.3 -7.3%* -7.3%* 05/03/2017 66 0.783 -0.8 Total Hip(Right) 03/27/2024 73 0.854 -0.8 -0.8% -6.1%* 03/27/2023 72 0.909 -0.4 5.6%* 1.9% 03/17/2022 71 0.892 -0.5 3.6% 2.2% 08/10/2020 69 0.873 -0.7 1.4% -4.2%* 07/22/2019 68 0.912 -0.4 5.9%* 2.4% 07/18/2018 67 0.890 -0.5 3.4% 3.4% 05/03/2017 66 0.861 -0.8 Femoral Neck(Right) 03/27/2024 73 0.675 -1.7 -7.2%* -4.8% 03/27/2023 72 0.709 -1.4 -2.5% -5.1% 03/17/2022 71 0.748 -1.1 2.8% 4.8% 08/10/2020 69 0.713 -1.4 -2.0% -2.8% 07/22/2019 68 0.734 -1.2 0.8% 4.7% 07/18/2018 67 0.701 -1.5 -3.7% -3.7% 05/03/2017 66 0.727 -1.2 *Denotes significance at 95% confidence level, site specific LSC for APSpine = 0.029 g/cm2, site specific LSC for Total Hip = 0.033 g/cm2, sitespecific LSC for Femoral Neck = 0.045 g/cm2, LSC for 1/3 Forearm = 0.023 g/cm2 IMPRESSION: 1. Osteopenia, based on measurements of the lumbar spine and rightneck. 2. Statistically significant decrease in bone mineral density of thelumbar spine and bilateral total hips. I personally reviewed these image(s) along with the resident's/fellow'sinterpretations, certify that if a procedure was performed I wasphysically present, and agree with the final report. Laura HOBBS IMG DXA ORDERABLES Final Res ult * CTX Beta Crosslaps (03/27/2024 8:50 AM CDT) CTX Beta Crosslaps 460 152 - 858 pg/mL 03/27/2024 9:52 AM CDT [facility] Is patient fasting? Yes 03/27/2024 9:52 AM CDT [facility] Blood Peripheral blood specimen / Unknown Venipuncture / Unknown 03/27/2024 8:50 AM CDT 03/27/2024 8:52 AM CDT Larua HOBBS LAB BLOOD ORDERABLES Final R esult [facility] Unless otherwise noted, all lab tests performed by: Division of Pathology and Laboratory Medicine [address] [place] [address] [facility] [address] [facility] [place] [address] * Vitamin D 25OH (03/27/2024 8:50 AM CDT) Vitamin D 25 OH 32 30 - 100 ng/mL 03/27/2024 9:58 AM CDT [facility] Blood Peripheral blood specimen / Unknown Venipuncture / Unknown 03/27/2024 8:50 AM CDT 03/27/2024 8:52 AM CDT Narrative [facility] - 03/27/2024 9:58 AM CDT Reference Range: Deficiency: <=20 ng/mL Insufficiency: 21-29 ng/mL Sufficiency: 30-100 ng/mL Potential toxicity: >100 ng/mL Laura HOBBS LAB BLOOD ORDERABLES Final R esult [facility] Unless otherwise noted, all lab tests performed by: Division of Pathology and Laboratory Medicine [address] [place] [id number] * BUN (03/27/2024 8:50 AM CDT) BUN 14 6 - 23 mg/dL 03/27/2024 9 :45 AM CDT [facility] Blood Peripheral blood specimen / Unknown Venipuncture / Unknown 03/27/2024 8:50 AM CDT 03/27/2024 8:52 AM CDT Laura HOBBS LAB BLOOD ORDERABLES Final R esult [facility] [address] [facility] [place] [address] * TSH (03/27/2024 8:50 AM CDT) Thyroid Stimulating Hormone 2.99 0.27 - 4.20 mcunit/mL 03/27/2024 9:35 AM CDT [facility] Blood Peripheral blood specimen / Unknown Venipuncture / Unknown 03/27/2024 8:50 AM CDT 03/27/2024 8:52 AM CDT Laura HOBBS LAB BLOOD ORDERABLES Final R esult [address] [place] [address] * Free T4 (03/27/2024 8:50 AM CDT) T4 (Thyroxine) Free 0.98 0.93 - 1.70 ng/dL 03/27/2024 9:35 AM CDT [facility] Blood Peripheral blood specimen / Unknown Venipuncture / Unknown 03/27/2024 8:50 AM CDT 03/27/2024 8:52 AM CDT Laura HOBBS LAB BLOOD ORDERABLES Final R esult Performing Organization Address City/[facility]/ZIP Co de Phone Number [address] [place] [address] * Phosphorus Level (03/27/2024 8:50 AM CDT) Phosphorus Level 4.5 2.5 - 4.5 mg/dL 03/27/2024 9:45 AM CDT [facility] Blood Peripheral blood specimen / Unknown Venipuncture / Unknown 03/27/2024 8:50 AM CDT 03/27/2024 8:52 AM CDT Laura HOBBS LAB BLOOD ORDERABLES Final R esult [address] [place] [address] * Magnesium Level (03/27/2024 8:50 AM CDT) Magnesium Level 2.1 1.6 - 2.6 mg/dL 03/27/2024 9:45 AM CDT [facility] Blood Peripheral blood specimen / Unknown Venipuncture / Unknown 03/27/2024 8:50 AM CDT 03/27/2024 8:52 AM CDT us Laura HOBBS LAB BLOOD ORDERABLES Final R esult [facility] [address] [place] [address]. [address] [place] [address] * Creatinine (03/27/2024 8:50 AM CDT) Creatinine 0.66 0.51 - 0.95 mg/dL 03/27/2024 9:45 AM CDT [facility] eGFR 94 >=60 mL/min/1.7 3 sq. m 03/27/2024 9:45 AM CDT [facility] Comment: The eGFRcr is calculated with the 2020 CKD-EPI creatinine equation using creatinine, patient's age, and sex for adults 18 years of age and older. Other factors, especially muscle mass, may affect accuracy and need to be considered. According to the Kidney Disease: Improving Global Outcomes (KDIGO) CKD Work Group 2012 Clinical Practice Guideline, chronic kidney disease (CKD) is defined as the abnormalities of kidney structure or function, present for more than 3 months, with implications for health. CKD should be classified by cause, GFR category, and albuminuria category. KDIGO guidelines provide the following GFR categories. Stage / Description / GFR mL/min/1.73 m2: G1* / Normal or high / >= 90 G2* / Mildly decreased / 60-89 G3a / Mildly to moderately decreased / 45-59 G3b / Moderately to severely decreased / 30-44 G4 / Severely decreased / 15-29 G5 / Kidney failure / <15 *In the absence of evidence of kidney damage, neither G1 nor G2 fulfill criteria for CKD. Blood Peripheral blood specimen / Unknown Venipuncture / Unknown 03/27/2024 8:50 AM CDT 03/27/2024 8:52 AM CDT Laura HOBBS LAB BLOOD ORDERABLES Final R ult [address] [place] [address] * Calcium Level (03/27/2024 8:50 AM CDT) Calcium Level Total 9.9 8.2 - 10.2 mg/dL 03/27/2024 9:45 AM CDT [facility] Blood Peripheral blood specimen / Unknown Venipuncture / Unknown 03/27/2024 8:50 AM CDT 03/27/2024 8:52 AM CDT us Laura HOBBS LAB BLOOD ORDERABLES Final R esult [address] [place] [address] * Albumin Level (03/27/2024 8:50 AM CDT) Albumin Level 4.0 3.5 - 5.2 gm/dL 03/27/2024 9:45 AM CDT [facility] Blood Peripheral blood specimen / Unknown Venipuncture / Unknown 03/27/2024 8:50 AM CDT 03/27/2024 8:52 AM CDT Laura HOBBS LAB BLOOD ORDERABLES Final R esult Performing Organization Address City/[facility]/ZIP Co de Phone Number [address] [place] [address] * Mammography Digital Screening Bilateral with Mukesh (03/19/2024 11:05 AM CDT) Anatomical Region Laterality Modality Breast Bilateral Mammography 03/19/2024 11:1 9 AM CDT Impressions 03/19/2024 11:19 AM CDT There is no mammographic evidence of malignancy. Follow-up mammogram in 1 year is recommended. BI-RADS Category 2: Benign Finding(s) Narrative 03/19/2024 11:19 AM CDT CLINICAL INDICATION: Patient is a 73 year old female and is seen for screening. MAMMO DIGITAL SCREENING BILATERAL W MUKESH Digital Mammogram evaluated with Computer Aided Detection (CAD). COMPARISON: The present examination has been compared to prior imaging studies performed at an outside location on 12/08/2021, and at [facility] on 12/04/2017, 12/19/2018, 12/16/2019 and 04/06/2022. FINDINGS: There are scattered areas of fibroglandular density. There is a stable post surgical scar with associated post radiation change and surgical clips in the left breast upper hemisphere at 12 o'clock located 5 centimeters from the nipple. There is no mammographic evidence of recurrence. In the right breast, no dominant mass, distortion, or suspicious calcifications are identified. Tomosynthesis performed in CC and MLO projections. Procedure Note Vicky Candelaria MD - 03/19/2024 CLINICAL INDICATION: Patient is a 73 year old female and is seen for screening. MAMMO DIGITAL SCREENING BILATERAL W MUKESH Digital Mammogram evaluated with Computer Aided Detection (CAD). COMPARISON: The present examination has been compared to prior imaging studiesperformed at an outside location on 12/08/2021, and at [facility] on 12/04/2017, 12/19/2018, 12/16/2019 and 04/06/2022. FINDINGS: There are scattered areas of fibroglandular density. There is a stable post surgical scar with associated post radiation changeand surgical clips in the left breast upper hemisphere at 12 o'clock located5 centimeters from the nipple. There is no mammographic evidence ofrecurrence. In the right breast, no dominant mass, distortion, or suspiciouscalcifications are identified. Tomosynthesis performed in CC and MLO projections. IMPRESSION: There is no mammographic evidence of malignancy. Follow-up mammogram in 1 year is recommended. BI-RADS Category 2: Benign Finding(s) Sher Washington MD IMG MAMMOGRAPHY ORDERABLES Radha yepez Result after 11/09/2023 Insurance [facility] MEDICARE ADVANTAGE [facility] MEDICARE ADVANTAGE Care Teams Poultry Tender Relationship Specialty Start Date End Date Erika Raygoza MD PCP - External Referring Internal Medicine 02/16/17 03/13/24 Erika Raygoza MD PCP - External Follow Up A Internal Medicine 02/22/17 03/13/24 Sher Washington MD [address] [place] [phone] m PCP - External Referring Internal Medicine 03/14/24 Sher Washington MD [address] [place] [phone] m PCP - External Follow Up A Internal Medicine 03/14/24 Physician, [place] [address] PCP - General Oncology 03/14/24 Myrna Whiting DDS [address] [place] [phone] [email or web address] Consulting Physician Dental Oncology 06/15/17 Pierce Kam APRN [address] [place] [phone] [email or web address] Nurse Practitioner Cancer Prevention 03/27/23 Estefanía Martínez MD [address] [place] [phone] [email or web address] Consulting Physician Endocrinology 03/27/23 Mike Webster MD [address] [place] [phone] [email or web address] Consulting Physician Gynecologic Medical Oncology 06/15/17 Emilia Russo MD [address] [place] [phone] [email or web address] Consulting Physician Pulmonary Medicine 03/05/17 Ivelisse Jacobson MD [address] [place] [id number] [email or web address] Consulting Physician Gynecologic Medical Oncology 05/18/17 Eitan Harvey MD [address] [place] [id number] [email or web address] Consulting Physician Radiation Oncology 04/18/17 Kyle Gamez MD [address] [place] [address] [email or web address] Consulting Physician Endocrinology 06/07/17
--- NOTE | 2024-11-08 13:02 | RAD REPORT ---
EXAM: Chest Single View HISTORY: COUGH COMPARISON: 03/15/2021 FINDINGS: LUNGS/PLEURA: The lungs are clear. No pleural effusions or pneumothorax. No pulmonary edema. MEDIASTINUM: The mediastinal silhouette is within normal limits. CARDIAC: The cardiac silhouette is within normal limits. UPPER ABDOMEN: No significant abnormality. BONES: No acute abnormality. LINES/TUBES/OTHER: N/A IMPRESSION: No evidence of acute cardiopulmonary disease.
[2024-11-08] MEDS ORDERED: FOLIC ACID 5 MG/ML VIAL ONE (14:11)
[2024-11-08] MEDS ORDERED: NA CHLORIDE 0.9% 1,000 ML ONE (14:11)
[2024-11-08 14:17] LABS: Absolute Basophils 0.1 K/uL (0-0.5); Absolute Eosinophils 0.4 K/uL (0-0.5); Absolute Lymphocytes (CBC) 2.1 K/uL (0.7-4.9); Absolute Monocytes 0.6 K/uL (0.1-1.3); Absolute Neutrophil 4.3 K/uL (1.8-8.0); Basophils % 0.8 % (0-1.3); Eosinophils % 5.9 % (0-4.4); Hemoglobin 14.2 g/dL (12.0-15.0); Lymphocytes % 27.4 % (15.3-44.8); MCH 29.9 pg (27.0-35.0); MCV 90.8 fL (80-100); MPV 8.9 fL (7.6-11.3); Monocytes % 8.4 % (3.3-12.3); Neutrophils % 57.5 % (41.7-73.7); Nucleated Red Blood Cells % 0.1 % (0-0); Platelets 225 thou/uL (152-406); RBC Red Blood Cell Count 4.74 M/uL (3.86-4.86)
[2024-11-08 14:22] LABS: PT Prothrombin Time 10.9 SECONDS (9.4-12.5); Protime INR 1.04
[2024-11-08 14:25] LABS: Specific Gravity > 1.030 (1.005-1.030); Sqamous Epithelial <5 /HPF (None Seen); Urine Bacteria None Seen /HPF (<20); Urine Bilirubin NEGATIVE (Negative); Urine Blood Negative (Negative); Urine Clarity Clear (Clear); Urine Color Light-Yellow (Yellow); Urine Culture Reflex Order NOT NEEDED; Urine Glucose 4+ (Over) (Negative); Urine Ketones NEGATIVE (Negative); Urine Microscopic Reflex YN ORDER UMIC; Urine Nitrite NEGATIVE (Negative); Urine Protein NEGATIVE (Negative); Urine RBC <5 /HPF (None Seen); Urine Urobilinogen Normal (Normal); Urine WBC <5 /HPF (<5); Urine pH 6.5 (5.0-7.0)
[2024-11-08 14:35] LABS: ALT/SGPT 23 U/L (13-56); AST/SGOT 15 U/L (15-37); Albumin 3.1 g/dL (3.4-5.0); Albumin/Globulin Ratio 0.8 (1.1-1.8); Alkaline Phosphatase 79 U/L (45-117); Anion Gap 8.9 mEq/L (5.0-15.0); BUN Blood Urea Nitrogen 16 mg/dL (7-18); Bicarbonate 25 mEq/L (21-32); Bilirubin Total 0.3 mg/dL (0.2-1.0); Globulin 3.8 g/dL (2.3-3.5); Glomerular Filtration Rate 93 ml/min (=/>90); Glucose Level 100 mg/dL (74-106); Magnesium 2.4 mg/dL (1.6-2.4); NT PRO-BNP 48 pg/mL (<125); Potassium 3.9 mEq/L (3.5-5.1); Protein, Total 6.9 g/dL (6.4-8.2); Sodium Level 140 mEq/L (136-145); Troponin High Sensitivity 9.4 pg/mL (<58.9)
[2024-11-08 14:36] LABS: Bilirubin Direct < 0.2 mg/dL (0-0.2); Bilirubin Indirect, Calculated 0.1 mg/dL (0.2-0.8)
--- NOTE | 2024-11-08 15:29 | RAD REPORT ---
EXAMINATION: CT HEAD WITHOUT CONTRAST CLINICAL INDICATION: Female, 74 years old.HEADACHE TECHNIQUE: Axial CT images from the skull base to the vertex without intravenous contrast. Coronal an d sagittal reformatted images were created from the data set. One or more of the following dose reduction techniques were used: Automated exposure control, adjustment of the mA and/or kV according to patient size, and/or iterative reconstruction. Unless otherwise specified, incidental findings do not require dedicated imaging follow-up. [id number]. COMPARISON: No prior exam. FINDINGS: INTRACRANIAL: No acute intracranial hemorrhage. No hydrocephalus. No mass effect or midline shift. No significant white matter disease. VASCULATURE: No visualized abnormalities in the arteries or dural venous sinuses. SCALP/SKULL: No significant soft tissue or osseous abnormalities. SINUSES: The visualized paranasal sinuses and mastoid air cells are predominantly clear. IMPRESSION: No acute intracranial abnormality.
--- NOTE | 2024-11-08 15:31 | RAD REPORT ---
EXAMINATION: CTA NECK CLINICAL INDICATION: Female, 74 years old. PAIN TECHNIQUE: Axial CT images were obtained from the aortic arch to the skull base after intravenous con trast utilizing angiographic protocol with 3D post-processing (maximum intensity projection images, volume rendered images and/or shaded surface rendered images). One or more of the following dose redu ction techniques were used: Automated exposure control, adjustment of the mA and/or kV according to patient size, and/or iterative reconstruction. Unless otherwise specified, incidental findings do not require dedicated imaging follow-up. [id number]. NASCET criteria used. Mild 0-49% stenosis Moderate 50-69% stenosis Severe 70-99% stenosis COMPARISON: No prior exam. FINDINGS: AORTA: The imaged aortic arch is normal. CCA: The common carotid arteries are patent and normal in caliber. ICA/ECA: Bilateral internal and external carotid arteries are patent. There is no significant interna l carotid artery stenosis. Where applicable, degree of stenosis is measured using NASCET-like criteria. VERTEBRAL: The cervical vertebral arteries are patent and codominant. SOFT TISSUE: No significant neck soft tissue abnormalities. The visualized lung apices are clear. 3D images confirm these findings. IMPRESSION: Normal neck CTA.
--- NOTE | 2024-11-08 15:34 | RAD REPORT ---
EXAMINATION: CTA HEAD CLINICAL INDICATION: Female, 74 years old. HEADACHE TECHNIQUE: Axial CT images were obtained through the head after intravenous contrast utilizing angiog raphic protocol with 3D post-processing (maximum intensity projection images, volume rendered images and/or shaded surface rendered images). One or more of the following dose reduction technique s were used: Automated exposure control, adjustment of the mA and/or kV according to patient size, and/or iterative reconstruction. Unless otherwise specified, incidental findings do not require dedic ated imaging follow-up. COMPARISON: No prior exam. FINDINGS: ICA: The petrous, cavernous, and supraclinoid segments of the bilateral internal carotid arteries are normal. The ophthalmic artery origins are visualized and normal. The posterior communicating arteries are patent. Mild calcified plaque at the bilateral cavernous carotids. AIXA: Anterior cerebral arteries are normal bilaterally. The anterior communicating artery is patent. MCA: Middle cerebral arteries are normal bilaterally. HOTEL HOUSEMAN: Posterior cerebral arteries are normal bilaterally. Vertebrobasilar: The vertebral arteries are patent. The basilar artery is normal in appearance. 3D images confirm these findings. IMPRESSION: No occlusion, aneurysm, or hemodynamically significant stenosis identified.
--- NOTE | 2024-11-08 16:50 | ER ---
Nurse's Notes [facility] Name: Valeria Witt Age: 74 yrs Sex: Female : 1950 Arrival Date: 11/08/2024 Time: 12:05 Bed 17 Private MD: Diagnosis: Dizziness and giddiness;Headache;Type 2 diabetes mellitus with hyperglycemia Presentation: 11/08 12:27 Chief complaint: Patient states: recent increase in medication dosage reports A1C at kl 7.5 MD increased Farciga to 10mg reports dizziness at this time also reports headache. Coronavirus screen: Vaccine status: Patient reports receiving the 2nd dose of the covid vaccine. Ebola Screen: Patient negative for fever greater than or equal to 101.5 degrees Fahrenheit, and additional compatible Ebola Virus Disease symptoms. Initial Sepsis Screen: Does the patient meet any 2 criteria? No. Patient's initial sepsis screen is negative. Does the patient have a suspected source of infection? No. Patient's initial sepsis screen is negative. Risk Assessment: Do you want to hurt yourself or someone else? Patient reports no desire to harm self or others. Onset of symptoms was November 08, 2024. 12:27 Method Of Arrival: Ambulatory 12:27 Acuity: YAMILET 3 kl Triage Assessment: 12:31 Headache History: Denies prior headaches. General: Appears uncomfortable, Behavior is kl calm, cooperative. Pain: Pain currently is 5 out of 10 on a pain scale. Pain began 4 hours ago. Also complains of dizziness. Neuro: No deficits noted. Historical: - Allergies: 12:29 No Known Allergies; - Home Meds: 12:29 Metformin Oral [Active]; kl - PMHx: 12:29 breast CA; Diabetes - IDDM; Hyperlipidemia; - PSHx: 12:31 left mastectomy; kl - Immunization history:: Adult Immunizations up to date. - Infectious Disease History:: Denies. - Social history:: Smoking status: Patient denies any tobacco usage or history of. Screenin:20 [facility] ED Fall Risk Assessment (Adult) History of falling in the last 3 months, me1 including since admission No falls in past 3 months (0 pts) Confusion or Disorientation No (0 pts) Intoxicated or Sedated No (0 pts) Impaired Gait No (0 pts) Mobility Assist Device Used No (0 pt) Altered Elimination No (0 pt) Score/Fall Risk Level 0 - 2 = Low Risk Maintained a safe environment, Provided non-skid footwear, Hourly rounding (assess needs \T\ fall precautionary measures) done. Abuse screen: Denies threats or abuse. Nutritional screening: No deficits noted. Tuberculosis screening: No symptoms or risk factors identified. Assessment: 13:20 General: Appears in no apparent distress. comfortable, well groomed, well developed, me1 well nourished, Behavior is calm, cooperative, appropriate for age, Reports recent increase in medication dosage reports A1C at 7.5 MD increased Farciga to 10mg reports dizziness at this time also reports headache. Pain: Complains of pain in head Pain does not radiate. Pain currently is 5 out of 10 on a pain scale. Quality of pain is described as aching, Pain began gradually, Is continuous. Neuro: Level of Consciousness is awake, alert, obeys commands, Oriented to person, place, time, situation, Appropriate for age Reports dizziness, headache since this morning. Cardiovascular: Patient's skin is warm and dry. Respiratory: Airway is patent Respiratory effort is even, unlabored, Respiratory pattern is regular, symmetrical. GI: No signs and/or symptoms were reported involving the gastrointestinal system. : No signs and/or symptoms were reported regarding the genitourinary system. EENT: No signs and/or symptoms were reported regarding the EENT system. Derm: Skin is intact, is healthy with good turgor, Skin is pink, warm \T\ dry. Musculoskeletal: No signs and/or symptoms reported regarding the musculoskeletal system. Vital Signs: 12:27 BP 134 / 75; Pulse 74; Resp 18; Temp 97(TE); Pulse Ox 100% on R/A; Weight 69.85 kg (R); kl Height 5 ft. 1 in. ; Pain 5/10; 14:00 BP 107 / 58; Pulse 68; Resp 17; Pulse Ox 95% ; me1 15:00 BP 118 / 61; Pulse 75; Resp 18; Pulse Ox 97% ; me1 16:00 BP 112 / 60; Pulse 67; Resp 15; Pulse Ox 98% ; me1 17:00 BP 138 / 83; Pulse 67; Resp 18; Pulse Ox 97% ; me1 12:27 Body Mass Index 29.10 (69.85 kg, 154.94 cm) kl 12:27 Pain Scale: Adult kl [place] Coma Score: 16:47 Eye Response: spontaneous(4). Motor Response: obeys commands(6). Verbal Response: jamie oriented(5). Total: 15. NIH Stroke Scale Scores: 16:51 NIHSS Score: 0 jamie ED Course: 12:10 Patient arrived in ED. sj2 12:29 Triage completed. kl 12:32 Jefferson Leach MD is Attending Physician. jamie 12:50 XRAY Chest (1 view) In Process Unspecified. EDMS 13:10 Carolee Klein, RN is Primary Nurse. me1 13:20 No provider procedures requiring assistance completed. me1 13:20 Patient has correct armband on for positive identification. Bed in low position. Call me1 light in reach. Side rails up X2. Provided Education on: POC. Verbalized understanding.. Client placed on continuous cardiac and pulse oximetry monitoring. NIBP monitoring applied. monitoring tech on. Pulse ox on. NIBP on. Warm blanket given. 13:42 Radiology exam delayed due to lab results not completed at this time. mw3 14:17 Initial lab(s) drawn, by nj, sent to lab. Urine collected: clean catch specimen, me1 cloudy, EKG done, by ED staff, reviewed by Jefferson Leach MD. Inserted saline lock: 22 gauge in right antecubital area, using aseptic technique. 14:17 Urinalysis w/ reflexes Sent. me1 14:18 Basic Metabolic Panel Sent. me1 14:18 CBC with Diff Sent. me1 14:18 LFT's Sent. me1 14:18 Magnesium Sent. me1 14:18 NT PRO-BNP Sent. me1 14:18 PT-INR Sent. me1 14:18 Troponin HS Sent. me1 15:26 CT Head Brain wo Cont In Process Unspecified. EDMS 15:26 CT Head Angio In Process Unspecified. EDMS 15:27 CT Neck Angio In Process Unspecified. EDMS 16:49 Shahzad Gorman MD is Referral Physician. jamie 17:24 IV discontinued, intact, bleeding controlled, No redness/swelling at site. Pressure me1 dressing applied. 17:24 Arm band placed on Patient placed in an exam room. me1 Administered Medications: 14:18 Drug: foLIC Acid IVPB 1 mg IVPB once Route: IVPB; Site: right antecubital; me1 14:20 Follow up: Response: No adverse reaction; IV Status: Completed infusion me1 14:18 Drug: NS 0.9% IV 1000 ml IV at 1000 ml once; to be given as a bolus over 60 minutes me1 Route: IV; Rate: 1000 ml; Site: right antecubital; 17:00 Follow up: Response: No adverse reaction; IV Status: Completed infusion; IV Intake: me1 1000ml 16:59 Drug: Aspirin PO Chewable Tablet 162 mg PO once Route: PO; me1 17:04 Follow up: Response: No adverse reaction me1 16:59 Drug: Meclizine PO 25 mg PO once Route: PO; me1 17:04 Follow up: Response: No adverse reaction me1 Medication: 13:20 VIS not applicable for this client. me1 Intake: 17:00 IV: 1000ml; Total: 1000ml. me1 Outcome: 16:49 Discharge ordered by MD. jamie 17:24 Discharged to home ambulatory, me1 17:24 Condition: stable 17:24 Discharge instructions given to patient, Instructed on discharge instructions, follow up and referral plans. medication usage, Demonstrated understanding of instructions, follow-up care, medications, Prescriptions given X 2, 17:25 Patient left the ED. me1 NIH Stroke Scale - NIH Stroke Score Date: 11/08/2024 Time: 16:51 Total Score = 0 10. Dysarthria (speech clarity - read or repeat words) - 0(Normal) 11. Extinction and Inattention (visual/tactile/auditory/spatial/personal) - 0(No abnormality) 1a. Level of Consciousness (LOC) - 0(Alert) 1b. Level of Consciousness (LOC) (Month \T\ Age) - 0(Both) 1c. LOC Commands (Open \T\ Closes Eyes/Laborer Brush Clearing) - 0(Both) 2. Best Gaze (Lateral Gaze Paresis) - 0(Normal) 3. Visual Field Loss - 0(No visual loss) 4. Facial Palsy - 0(Normal) 5a. Left Arm: Motor (10-second hold) - 0(No drift) 5b. Right Arm: Motor (10-second hold) - 0(No drift) 6a. Left Leg: Motor (5-second hold - always test supine) - 0(No drift) 6b. Right Leg: Motor (5-second hold - always test supine) - 0(No drift) 7. Limb Ataxia (finger/nose \T\ heel/carson - test with eyes open) - 0(Absent) 8. Sensory Loss (pinprick arms/legs/face) - 0(Normal) 9. Best Language: Aphasia (description/naming/reading) - 0(No aphasia) Initials: jamie Signatures: Dispatcher [employer] Alfreda Villasenor RN RN kl Anderson, Corey, MD MD cha Willis, Michelle 3 Carolee Klein RN RN me1 Neha Jimenez sj2 Corrections: (The following items were deleted from the chart) 12:31 12:29 PSHx: left mastectomy (Hyperlipidemia); stanley angel 17:02 12:27 Chief complaint: Patient states: recent increase in medication dosage me1 reports A1C at 7.5 MD increased Farciga to 10mg reports dizziness at this time also reports headache kl
--- NOTE | 2024-11-08 16:50 | EDPHYS ---
Physician Documentation [facility] Name: Valeria Witt Age: 74 yrs Sex: Female : 1950 Arrival Date: 11/08/2024 Time: 12:05 Bed 17 Private MD: ED Physician Jefferson Leach HPI: 11/08 16:45 This 74 yrs old Female presents to ER via Ambulatory with complaints of jamie Headache, Dizziness, Neck Pain, <24hrs Old. 16:45 The patient complains of pain to the forehead. The patient describes the headache as jamie aching. Onset: The symptoms/episode began/occurred 3 day(s) ago. Associated signs and symptoms: The patient has no apparent associated signs or symptoms. Severity of symptoms: At its worst the pain was mild, in the emergency department the pain is unchanged. Headache History: The patient has had previous headaches and this one is similar to previous episodes. The patient has experienced similar episodes in the past, a few times. Historical: - Allergies: 12:29 No Known Allergies; kl - Home Meds: 12:29 Metformin Oral [Active]; kl - PMHx: 12:29 breast CA; Diabetes - IDDM; Hyperlipidemia; kl - PSHx: 12:31 left mastectomy; kl - Immunization history:: Adult Immunizations up to date. - Infectious Disease History:: Denies. - Social history:: Smoking status: Patient denies any tobacco usage or history of. ROS: 16:46 Constitutional: Negative for fever, chills, and weight loss, Eyes: Negative for injury, jamie pain, redness, and discharge, ENT: Negative for injury, pain, and discharge, Neck: Negative for injury, pain, and swelling, Cardiovascular: Negative for chest pain, palpitations, and edema, Respiratory: Negative for shortness of breath, cough, wheezing, and pleuritic chest pain, Abdomen/GI: Negative for abdominal pain, nausea, vomiting, diarrhea, and constipation, Back: Negative for injury and pain, : Negative for injury, bleeding, discharge, and swelling, MS/Extremity: Negative for injury and deformity, Skin: Negative for injury, rash, and discoloration, Psych: Negative for depression, anxiety, suicide ideation, homicidal ideation, and hallucinations, Allergy/Immunology: Negative for hives, rash, and allergies, Endocrine: Negative for neck swelling, polydipsia, polyuria, polyphagia, and marked weight changes, Hematologic/Lymphatic: Negative for swollen nodes, abnormal bleeding, and unusual bruising, 16:46 Neuro: Positive for dizziness, Exam: 16:46 Constitutional: This is a well developed, well nourished patient who is awake, alert, jamie and in no acute distress. Head/Face: Normocephalic, atraumatic. Eyes: Pupils equal round and reactive to light, extra-ocular motions intact. Lids and lashes normal. Conjunctiva and sclera are non-icteric and not injected. Cornea within normal limits. Periorbital areas with no swelling, redness, or edema. ENT: Nares patent. No nasal discharge, no septal abnormalities noted. Tympanic membranes are normal and external auditory canals are clear. Oropharynx with no redness, swelling, or masses, exudates, or evidence of obstruction, uvula midline. Mucous membranes moist. Neck: Trachea midline, no thyromegaly or masses palpated, and no cervical lymphadenopathy. Supple, full range of motion without nuchal rigidity, or vertebral point tenderness. No Meningismus. Chest/axilla: Normal chest wall appearance and motion. Nontender with no deformity. No lesions are appreciated. Cardiovascular: Regular rate and rhythm with a normal S1 and S2. No gallops, murmurs, or rubs. Normal PMI, no JVD. No pulse deficits. Respiratory: Lungs have equal breath sounds bilaterally, clear to auscultation and percussion. No rales, rhonchi or wheezes noted. No increased work of breathing, no retractions or nasal flaring. Abdomen/GI: Soft, non-tender, with normal bowel sounds. No distension or tympany. No guarding or rebound. No evidence of tenderness throughout. Back: No spinal tenderness. No costovertebral tenderness. Full range of motion. Skin: Warm, dry with normal turgor. Normal color with no rashes, no lesions, and no evidence of cellulitis. MS/ Extremity: Pulses equal, no cyanosis. Neurovascular intact. Full, normal range of motion., bilateral aka Neuro: Awake and alert, GCS 15, oriented to person, place, time, and situation. Cranial nerves II-XII grossly intact. Motor strength 5/5 in all extremities. Sensory grossly intact. Cerebellar exam normal. Normal gait. Psych: Awake, alert, with orientation to person, place and time. Behavior, mood, and affect are within normal limits. 16:46 ECG was reviewed by the Attending Physician. Vital Signs: 12:27 BP 134 / 75; Pulse 74; Resp 18; Temp 97(TE); Pulse Ox 100% on R/A; Weight 69.85 kg (R); kl Height 5 ft. 1 in. ; Pain 5/10; 14:00 BP 107 / 58; Pulse 68; Resp 17; Pulse Ox 95% ; me1 15:00 BP 118 / 61; Pulse 75; Resp 18; Pulse Ox 97% ; me1 16:00 BP 112 / 60; Pulse 67; Resp 15; Pulse Ox 98% ; me1 17:00 BP 138 / 83; Pulse 67; Resp 18; Pulse Ox 97% ; me1 12:27 Body Mass Index 29.10 (69.85 kg, 154.94 cm) kl 12:27 Pain Scale: Adult kl NIH Stroke Scale Scores: 16:51 NIHSS Score: 0 jamie Faiza Coma Score: 16:47 Eye Response: spontaneous(4). Motor Response: obeys commands(6). Verbal Response: jamie oriented(5). Total: 15. MDM: 12:32 Medical Screening Exam initiated jamie 16:47 Differential diagnosis: cluster headache, hypoglycemia, migraine, temporal arteritis, jamie tension headache. Differential diagnosis: cardiac arrhythmia, CVA, generalized weakness, GI bleed, head injury, hypovolemia, idiopathic dizziness, near-syncope, syncope, TIA, vertigo. Data reviewed: vital signs, nurses notes, lab test result(s), EKG, radiologic studies, CT scan. 11/08 12:34 Order name: Basic Metabolic Panel; Complete Time: 16: [facility] 11/08 12:34 Order name: CBC with Diff; Complete Time: 16: [facility] 11/08 12:34 Order name: LFT's; Complete Time: 16: [facility] 11/08 12:34 Order name: Magnesium; Complete Time: 16: [facility] 11/08 12:34 Order name: NT PRO-BNP; Complete Time: 16: [facility] 11/08 12:34 Order name: PT-INR; Complete Time: 16: [facility] 11/08 12:34 Order name: Troponin HS; Complete Time: 16: [facility] 11/08 12:34 Order name: Urinalysis w/ reflexes; Complete Time: 16:09 [facility] 11/08 12:34 Order name: XRAY Chest (1 view); Complete Time: 16: [facility] 11/08 12:34 Order name: CT Head Brain wo Cont; Complete Time: 16: [facility] 11/08 12:34 Order name: CT Head Angio; Complete Time: 16: [facility] 11/08 12:34 Order name: CT Neck Angio; Complete Time: 16: [facility] 11/08 12:34 Order name: Cardiac monitoring; Complete Time: 14: [facility] 11/08 12:34 Order name: EKG - Nurse/Tech; Complete Time: 14: [facility] 11/08 12:34 Order name: IV Saline Lock; Complete Time: 14: [facility] 11/08 12:34 Order name: Labs collected and sent; Complete Time: 14: [facility] 11/08 12:34 Order name: O2 Per Protocol; Complete Time: 14: [facility] 11/08 12:34 Order name: O2 Sat Monitoring; Complete Time: 14:17 [facility] EC:46 Rate is 66 beats/min. Rhythm is regular. QRS Aubrey is Normal. SD interval is normal. QRS jamie interval is normal. QT interval is normal. No Q waves. T waves are Normal. No ST changes noted. Clinical impression: NSR w/ Non-specific ST/T Changes and No evidence of ischemia. Interpreted by me. Reviewed by me. Administered Medications: 14:18 Drug: foLIC Acid IVPB 1 mg IVPB once Route: IVPB; Site: right antecubital; me1 14:20 Follow up: Response: No adverse reaction; IV Status: Completed infusion me1 14:18 Drug: NS 0.9% IV 1000 ml IV at 1000 ml once; to be given as a bolus over 60 minutes me1 Route: IV; Rate: 1000 ml; Site: right antecubital; 17:00 Follow up: Response: No adverse reaction; IV Status: Completed infusion; IV Intake: me1 1000ml 16:59 Drug: Aspirin PO Chewable Tablet 162 mg PO once Route: PO; me1 17:04 Follow up: Response: No adverse reaction me1 16:59 Drug: Meclizine PO 25 mg PO once Route: PO; me1 17:04 Follow up: Response: No adverse reaction me1 Disposition Summary: 11/08/24 16:49 Discharge Ordered Notes: Location: Home jamie Problem: new jamie Symptoms: have improved jamie Condition: Stable jamie Diagnosis - Dizziness and giddiness jamie - Headache jamie - Type 2 diabetes mellitus with hyperglycemia jamie Followup: jamie - With: Private Physician - When: 2 - 3 days - Reason: Recheck today's complaints, Continuance of care, Re-evaluation by your physician Followup: jamie - With: Shahzad Gorman MD - When: 2 - 3 days - Reason: Recheck today's complaints, Re-evaluation by your physician Discharge Instructions: - Discharge Summary Sheet jamie - Benign Positional Vertigo jamie - Dizziness jamie - General Headache Without Cause jamie - Hyperglycemia jamie - Vertigo jamie - Diabetes Mellitus and Nutrition, Adult jamie - Aspirin and Your Heart jamie - General Headache Without Cause, Oskf-cu-Dolf jamie Forms: - Medication Reconciliation Form jamie - Antibiotic Education jamie - Prescription Opioid Use jamie - Patient Portal Instructions jamie - Leadership Thank You Letter [facility] Prescriptions: - Meclizine 25 mg Oral Tablet - take 1 tablet ORAL route every 8 hours As needed; 30 tablet; Refills: 0, jamie Product Selection Permitted - Folic Acid 1 mg Oral Tablet - take 1 tablet ORAL route once daily; 30 tablet; Refills: 0, Product Selection jamie Permitted NIH Stroke Scale - NIH Stroke Score Date: 11/08/2024 Time: 16:51 Total Score = 0 10. Dysarthria (speech clarity - read or repeat words) - 0(Normal) 11. Extinction and Inattention (visual/tactile/auditory/spatial/personal) - 0(No abnormality) 1a. Level of Consciousness (LOC) - 0(Alert) 1b. Level of Consciousness (LOC) (Month \T\ Age) - 0(Both) 1c. LOC Commands (Open \T\ Closes Eyes/Deputy County [employer]) - 0(Both) 2. Best Gaze (Lateral Gaze Paresis) - 0(Normal) 3. Visual Field Loss - 0(No visual loss) 4. Facial Palsy - 0(Normal) 5a. Left Arm: Motor (10-second hold) - 0(No drift) 5b. Right Arm: Motor (10-second hold) - 0(No drift) 6a. Left Leg: Motor (5-second hold - always test supine) - 0(No drift) 6b. Right Leg: Motor (5-second hold - always test supine) - 0(No drift) 7. Limb Ataxia (finger/nose \T\ heel/carson - test with eyes open) - 0(Absent) 8. Sensory Loss (pinprick arms/legs/face) - 0(Normal) 9. Best Language: Aphasia (description/naming/reading) - 0(No aphasia) Initials: jamie Signatures: Dispatcher [employer] EDMS Alfreda Cazares RN RN kl Anderson, Corey, MD MD cha Eddleman, Michelle, RN RN me1 Corrections: (The following items were deleted from the chart) 12:31 12:29 PSHx: left mastectomy (Hyperlipidemia); kl 12:35 12:35 BASIC METABOLIC PANEL+C.LAB.BRZ ordered. EDMS EDMS 12:35 12:35 CBC+H.LAB.BRZ ordered. EDMS EDMS 12:35 12:35 HEPATIC FUNCTION+C.LAB.BRZ ordered. EDMS EDMS 12:35 12:35 MAGNESIUM+C.LAB.BRZ ordered. EDMS EDMS 12:35 12:35 PROBNP+C.LAB.BRZ ordered. EDMS EDMS 12:35 12:35 PROTIME (+INR)+COAG.LAB.BRZ ordered. EDMS EDMS 12:35 12:35 Troponin High Sensitivity+C.LAB.BRZ ordered. EDMS EDMS 12:35 12:35 Urinalysis+U.LAB.BRZ ordered. EDMS EDMS 12:35 12:35 Chest Single View+RAD.RAD.BRZ ordered. EDMS EDMS 12:35 12:35 Head Brain Wo Cont+CT.RAD.BRZ ordered. EDMS EDMS 12:35 12:35 Head Angio+CT.RAD.BRZ ordered. EDMS EDMS 12:35 12:35 Neck Angio+CT.RAD.BRZ ordered. EDMS EDMS
[2024-11-08] MEDS ORDERED: ASPIRIN 81 MG CHEWABLE TABLET ONE (16:56)
[2024-11-08] MEDS ORDERED: MECLIZINE HCL 12.5 MG TAB ONE (16:56)
[2024-11-08 17:40] VITALS: TEMP 97
[2024-11-08 17:44] VITALS: BP 138/83; O2SAT 97
== END 2024-11-08 17:25 | disposition home or self-care (01) ==
LOC: ER 12:05
DX: R42 Dizziness and giddiness (principal); R51.9 Headache, unspecified; E11.65 Type 2 diabetes mellitus with hyperglycemia; E78.5 Hyperlipidemia, unspecified; Z79.84 Long term (current) use of oral hypoglycemic drugs
CPT/HCPCS: 96361; 85025; 81001; 80048; 36415; 83735; 85610; 80076; 84484; 83880; 70450; 70496; 70498; 71045; 96374; 99285; Q9967; J8597; J7030